=== PATIENT | female | born 1960 | race Caucasian/White ===

== ENCOUNTER 2019-07-28 13:48 | Emergency (ER) | payer MEDICARE, OTHER, SELFPAY ==
--- NOTE | 2019-07-28 13:56 | ED.GENADULT ---
HPI - General Adult General Chief complaint: Ear Stated complaint: Sore Throat/Dizziness/R ear pain Time Seen by Provider: 07/28/19 14:04 Source: patient Mode of arrival: ambulatory Limitations: no limitations History of Present Illness HPI narrative: 59-year-old female patient [facility] with complaints of right ear pain, dizziness, nasal congestion, runny nose symptoms for the past month. Patient states that her ear pain has been coming and going for the past month but is gotten increasingly worse today. Patient states she is also had dizziness for the last couple of days as well. Patient states she has tried taking Sudafed for her symptoms. Patient is not diabetic. Denies getting a flu shot this year. Patient denies any fevers, nausea, vomiting or diarrhea. Denies any chest pain or shortness of breath. Related Data Home Medications Medication Instructions Recorded Confirmed aspirin 81 mg tablet,delayed 81 mg PO DAILY 05/04/19 07/28/19 release cholecalciferol (vitamin D3) 25 1,000 unit PO DAILY 05/04/19 07/28/19 mcg (1,000 unit) capsule meloxicam 15 mg tablet 15 mg PO DAILY 05/04/19 07/28/19 multivitamin 1 tablet PO DAILY 05/04/19 07/28/19 venlafaxine 225 mg tablet,extended 225 mg PO DAILY 05/04/19 07/28/19 release 24 hr ascorbic acid (vitamin C) 1,000 mg 1 gm PO DAILY 06/12/19 07/28/19 tablet gabapentin 800 mg tablet 800 mg PO QID PRN tablet 06/12/19 07/28/19 Allergies Allergy/AdvReac Type Severity Reaction Status Date / Time shellfish derived Allergy Unknown Unknown Verified 07/28/19 14:04 Review of Systems Review of Systems: Narrative: CONSTITUTIONAL: Denies fever, chills, or sweats. EYES: Denies visual changes, redness, or discharge. ENT: Positive rhinorrhea, congestion, sore throat, and right otalgia. CARDIOVASCULAR: Denies chest pain, palpitations, or edema. RESPIRATORY: Denies cough or dyspnea. GASTROINTESTINAL: Denies abdominal pain, nausea, vomiting, or diarrhea. GENITOURINARY: Denies dysuria or hematuria. SKIN: Denies rash or itching. MUSCULOSKELETAL: Denies back pain, joint pain, or myalgia. NEUROLOGIC: Positive headache, dizziness, denies numbness, or weakness. PSYCHIATRIC: Denies anxiety or depression. [facility] Past Medical History Medical History Chronic pain of left knee Colitis Constipation Depression DM w/o complication type II, uncontrolled Headache, migraine HLD (hyperlipidemia) Hypokalemia Opioid abuse Recurrent UTI Spinal cord stimulator status Thyroid disease Urinary incontinence Surgical History Surgical History H/O left knee surgery x2 H/O neck surgery H/O right knee surgery H/O: hysterectomy History of back surgery x9 Family History Family History Mother Diabetes mellitus Hypertension Family history of elevated blood lipids Father Diabetes mellitus Hypertension Family history of congenital heart disease Family history of kidney disease Other Asthma Depression Family history of arthritis Family history of chronic obstructive pulmonary disease Family history of hearing loss Family history of liver disease Family history of malignant neoplasm of breast in first degree relative Family history of mental disorder Family history of obesity Social History Social History Smoking status: Never smoker Second hand tobacco smoke exposure: No Alcohol intake: current Comments At the time of my signature I agree with nursing past medical history, surgical, social, and family history. There is no relevant family history pertinent to the presenting complaint. Exam Narrative: Exam Narrative: GENERAL: Well-appearing, well-nourished, and in no acute distress. HEAD: Normocephalic, atraumatic. Tenderness noted t
[2019-07-28 13:59] VITALS: BP 150/72; PULSE 78; RESP 16; TEMP 36.6; O2SAT 98
== END 2019-07-28 14:15 | disposition home or self-care (01) ==
PROVIDERS: Emergency Provider Nurse Practitioner Family; PCP Internal Medicine
DX: J01.00 Acute maxillary sinusitis, unspecified (principal); H93.8X3 Other specified disorders of ear, bilateral; F32.9 Major depressive disorder, single episode, unspecified; E11.9 Type 2 diabetes mellitus without complications; E78.5 Hyperlipidemia, unspecified
CPT/HCPCS: 99213; G0463

== ENCOUNTER 2019-10-25 12:54 | Outpatient (CLI) | payer MEDICARE, OTHER, SELFPAY ==
--- NOTE | ~2019-10-25 | CT_ITS ---
EXAMINATION: CT abdomen pelvis w con DATE: 10/25/2019 13:28 INDICATION: Unspecified abdominal pain. TECHNIQUE: Computed tomography (CT) of the abdomen and pelvis was performed with 100 mL Omnipaque 350 intravenous contrast. Automated exposure control and iterative reconstruction technique were employe d. The dose-length product was 744.35 mGy-cm. COMPARISON: CT abdomen and pelvis 08/21/2018 FINDINGS: The visualized portions of the lung bases demonstrate mild atelectasis. No pleural effusion . The heart size is normal. No pericardial effusion. The liver, gallbladder, spleen, pancreas, adrena l glands, and left kidney are normal. There is a 5 mm cyst in right kidney. There are no dilated loop s of bowel. The appendix is normal. There are no pathologically enlarged lymph nodes. There is no alexander e intraperitoneal fluid. There are epidural electrodes in thoracic spine. There are changes of girls swimming coach ior fusion procedure from L4 to S1. There is moderate lumbar spondylosis. IMPRESSION: 1. No etiology for the patient's symptoms. Reviewed, dictated and finalized at location A.
[2019-10-25 13:25] LABS: Estimated Glomerular Filt Rate > 60
== END 2019-10-25 12:55 | disposition home or self-care (01) ==
LOC: ANHIMG 12:58
PROVIDERS: PCP Internal Medicine; Visit Provider Nurse Practitioner
DX: R10.9 Unspecified abdominal pain (principal)
CPT/HCPCS: 36415; 74177; Q9967

== ENCOUNTER 2020-03-22 16:15 | Emergency (ER) | payer MEDICARE, OTHER, SELFPAY ==
[2020-03-22 16:32] VITALS: BP 143/82; PULSE 76; RESP 16; TEMP 36.2; O2SAT 99
--- NOTE | 2020-03-22 16:46 | ED.URI ---
HPI - URI/Sore Throat General Chief Complaint: Ear Stated Complaint: ear/nose/throat Time Seen by Provider: 03/22/20 16:46 Source: patient Mode of arrival: ambulatory Limitations: no limitations History of Present Illness HPI Narrative: Danay Fulton is a59 yo female with a PMH oh HTN, high cholesterol, DM, hypothyroid, depression, diabetic neuropathy, who comes to express care with c/o pain in R ear and not feeling well. She is due to see an ENT on Tuesday because she has chronic issues with her right ear and sinuses that she has been treated for multiple times in the last couple months and it gets better than comes right back IBS runs in her family but her last A1c was 4.3; she takes medication for the rest of her conditions as prescribed Related Data Home Medications Medication Instructions Recorded Confirmed aspirin 81 mg tablet,delayed 81 mg PO DAILY 05/04/19 03/22/20 release meloxicam 15 mg tablet 15 mg PO DAILY 05/04/19 03/22/20 multivitamin 1 tablet PO DAILY 05/04/19 03/22/20 ascorbic acid (vitamin C) 1,000 mg 1 gm PO DAILY 06/12/19 03/22/20 tablet gabapentin 800 mg tablet 800 mg PO QID PRN tablet 06/12/19 03/22/20 apple cider vinegar 500 mg tablet 500 mg PO DAILY tablet 03/06/20 03/22/20 black cohosh 540 mg capsule 540 mg PO DAILY cap 03/06/20 03/22/20 cholecalciferol (vitamin D3) 50 50 mcg PO DAILY 03/06/20 03/22/20 mcg (2,000 unit) capsule cinnamon bark 500 mg capsule 1,000 mg PO DAILY cap 03/06/20 03/22/20 trazodone 50 mg tablet 50 mg PO DAILY tablet 03/06/20 03/22/20 Allergies Allergy/AdvReac Type Severity Reaction Status Date / Time shellfish derived Allergy Unknown Unknown Verified 07/28/19 14:04 Review of Systems Review of Systems: Narrative: CONSTITUTIONAL: Denies fever, chills, sweats. EYES: Denies visual changes, redness, discharge. ENT: Has rhinorrhea, has congestion, has sore throat, right otalgia. CARDIOVASCULAR: Denies chest pain, palpitations, edema. RESPIRATORY: Denies dyspnea, wheezing, cough GASTROINTESTINAL: Denies abdominal pain, nausea, vomiting, diarrhea. GENITOURINARY: Denies dysuria, hematuria, abnormal discharge SKIN: Denies rash or itching. NEUROLOGIC: Denies numbness, or focal weakness. PSYCHIATRIC: Denies anxiety or depression. [facility] Past Medical History Medical History (Updated 03/22/20 @ 17:02 by Vonnie Burden CNP) Chronic pain of left knee Colitis Constipation Depression DM w/o complication type II, uncontrolled Headache, migraine HLD (hyperlipidemia) Hypokalemia Opioid abuse Recurrent UTI Spinal cord stimulator status Thyroid disease Urinary incontinence Surgical History Surgical History H/O left knee surgery x2 H/O neck surgery H/O right knee surgery H/O: hysterectomy History of back surgery x9 Family History Family History Mother Diabetes mellitus Hypertension Family history of elevated blood lipids Father Diabetes mellitus Hypertension Family history of congenital heart disease Family history of kidney disease Other Asthma Depression Family history of arthritis Family history of chronic obstructive pulmonary disease Family history of hearing loss Family history of liver disease Family history of malignant neoplasm of breast in first degree relative Family history of mental disorder Family history of obesity Social History Social History Smoking status: Never smoker Second hand tobacco smoke exposure: No Alcohol intake: current Comments At time of signature, I agree with nursing past medical, surgical, social and family history. There is no relevant family history pertinent to the presenting complaint. Exam Narrative: Exam Narrative: GENERAL: This is a well-nourished, well-developed patient, in moderate distress. HEAD: normo
== END 2020-03-22 17:10 | disposition home or self-care (01) ==
PROVIDERS: Emergency Provider Nurse Practitioner; PCP Internal Medicine
DX: H66.004 Acute suppurative otitis media without spontaneous rupture of ear drum, recurrent, right ear (principal); J06.9 Acute upper respiratory infection, unspecified; F32.9 Major depressive disorder, single episode, unspecified; E11.9 Type 2 diabetes mellitus without complications; E78.5 Hyperlipidemia, unspecified; Z96.82 Presence of neurostimulator; Z79.82 Long term (current) use of aspirin
CPT/HCPCS: 87081; 87880; 99213; G0463

== ENCOUNTER 2020-04-04 15:08 | Outpatient (CLI) | payer MEDICARE, OTHER, SELFPAY ==
--- NOTE | ~2020-04-04 | CT_ITS ---
EXAMINATION: CT sinus wo con DATE: 04/04/2020 15:32 INDICATION: Chronic sinusitis TECHNIQUE: Computed tomography (CT) of the paranasal sinuses was performed without intravenous contra st. The dose-length product was 297.72 mGy-cm. Automated exposure control and iterative reconstructio n technique were employed. COMPARISON: CT dated 01/11/2013 FINDINGS: Air-fluid level in the left maxillary sinus. Mild mucosal thickening left maxillary sinus. Ostiomeatal units are patent. Right mary bullosa. Leftward nasal septal deviation. Mastoids are pne umatized. IMPRESSION: 1. Mild left maxillary sinusitis. Reviewed, dictated and finalized at location B.
== END 2020-04-04 15:09 | disposition home or self-care (01) ==
PROVIDERS: PCP Internal Medicine; Visit Provider Otolaryngology
DX: J32.0 Chronic maxillary sinusitis (principal)
CPT/HCPCS: 70486

== ENCOUNTER 2020-07-03 13:37 | Outpatient (CLI) | payer MEDICARE, OTHER, SELFPAY ==
--- NOTE | 2020-07-03 13:41 | ECG_ITS ---
Measurements Intervals [place] Rate: 73 P: 19 SC: 172 QRS: 59 QRSD: 105 T: 67 QT: 399 QTc: 440 Interpretive Statements SINUS RHYTHM BORDERLINE T WAVE ABNORMALITY- ANTERIOR LEADS BORDERLINE ECG Electronically Signed On 07-03-2020 14:08:46 BATCH TANK CONTROLLER by Aubrey Magana D.O.
[2020-07-03 14:21] LABS: Anion Gap 9 mmol/L (8-16); Blood Urea Nitrogen 17 mg/dL (7-17); Calcium 9.5 mg/dL (8.4-10.2); Carbon Dioxide 28 mmol/L (22-30); Chloride 97 mmol/L (98-107); Estimated Glomerular Filt Rate > 60; Glucose 225 mg/dL (65-105); Potassium 4.5 mmol/L (3.4-5.0); Sodium 134 mmol/L (137-145)
== END 2020-07-03 13:38 | disposition home or self-care (01) ==
LOC: ANHSURGERY 13:41
PROVIDERS: Anesthesiology; PCP Internal Medicine; Visit Provider Orthopaedic Surgery
DX: E11.9 Type 2 diabetes mellitus without complications (principal); Z01.818 Encounter for other preprocedural examination; R94.31 Abnormal electrocardiogram [ECG] [EKG]
CPT/HCPCS: 36415; 80048; 93005

== ENCOUNTER 2020-07-05 00:11 | Outpatient (CLI) | payer MEDICARE, OTHER, SELFPAY ==
[2020-07-06 00:20] LABS: SARS-CoV-2 RNA PCR Negative
== END 2020-07-05 00:12 | disposition home or self-care (01) ==
LOC: ANHCOVIDDT 00:12
PROVIDERS: PCP Internal Medicine; Visit Provider Orthopaedic Surgery
DX: Z01.812 Encounter for preprocedural laboratory examination (principal); Z20.822 Contact with and (suspected) exposure to COVID-19
CPT/HCPCS: C9803; U0003; U0005

== ENCOUNTER 2020-07-08 00:59 | Day surgery (SDC) | payer MEDICARE, OTHER, SELFPAY ==
[2020-07-02 13:28] VITALS: BMI 29.6
--- NOTE | 2020-07-07 09:13 | WPDANESEPPF ---
Anes - Initial Pre Proc Eval Procedure: Operation Date: 07/08/20 10:30 Proposed Procedures p Right Shoulder Arthroscopic Subacromial Decompression, Proceed As Indicated - Mayank Paige MD Date/Time: 07/07/20 09:13 Surgeon: Mayank Paige MD Pre Op Diagnosis: impingement syndrome right shoulder Patient Data Age: 60 Gender: F Height: 1.7 m Weight: 85.9 kg Allergies Allergy/AdvReac Type Severity Reaction Status Date / Time shellfish derived Allergy Unknown Anaphylaxis Verified 07/08/20 08:56 Home Medications Medication Instructions Recorded Confirmed Type aspirin 81 mg tablet,delayed 81 mg PO DAILY 05/04/19 07/08/20 History release meloxicam 15 mg tablet 15 mg PO DAILY 05/04/19 07/08/20 History multivitamin 1 tablet PO DAILY 05/04/19 07/08/20 History ascorbic acid (vitamin C) 1,000 mg 500 mg PO DAILY 06/12/19 07/08/20 History tablet gabapentin 800 mg tablet 800 mg PO QID PRN tablet 06/12/19 07/08/20 History black cohosh 540 mg capsule 540 mg PO DAILY cap 03/06/20 07/08/20 History cholecalciferol (vitamin D3) 50 50 mcg PO DAILY 03/06/20 07/08/20 History mcg (2,000 unit) capsule cinnamon bark 500 mg capsule 1,000 mg PO DAILY cap 03/06/20 07/08/20 History trazodone 50 mg tablet 50 mg PO HS tablet 03/06/20 07/08/20 History metformin 500 mg tablet 500 mg PO DAILY #270 tablet 03/13/20 07/08/20 Rx levothyroxine 112 mcg tablet 112 mcg PO DAILY #90 tablet 04/01/20 07/08/20 Rx fluticasone propionate 50 2 spray INTRANASAL DAILY #15.8 ml 05/20/20 07/08/20 Rx mcg/actuation nasal spray,suspension venlafaxine 150 mg 150 mg PO DAILY #90 cap 06/03/20 07/08/20 Rx capsule,extended release 24 hr venlafaxine 75 mg capsule,extended 75 mg PO DAILY #90 cap 06/03/20 07/08/20 Rx release 24 hr apple cider vinegar 1,500 mg PO QAM 07/02/20 07/08/20 History atorvastatin 20 mg PO HS 07/02/20 07/08/20 History Patient hx anesthesia problems: none Family hx anesthesia problems: none [facility] Past Medical History Medical History (Updated 07/07/20 @ 09:13 by Rudy Bruno DO) Chronic pain of left knee Colitis Constipation Depression DM w/o complication type II, uncontrolled GERD (gastroesophageal reflux disease) Headache, migraine HLD (hyperlipidemia) Hypokalemia Opioid abuse Recurrent UTI Spinal cord stimulator status Thyroid disease Urinary incontinence Surgical History Surgical History H/O left knee surgery x2 H/O neck surgery H/O right knee surgery H/O: hysterectomy History of back surgery x9 Family History Family History Mother Diabetes mellitus Hypertension Family history of elevated blood lipids Father Diabetes mellitus Hypertension Family history of congenital heart disease Family history of kidney disease Other Asthma Depression Family history of arthritis Family history of chronic obstructive pulmonary disease Family history of hearing loss Family history of liver disease Family history of malignant neoplasm of breast in first degree relative Family history of mental disorder Family history of obesity Social History Social History Smoking status: Never smoker Second hand tobacco smoke exposure: No Alcohol intake: current Alcohol use details: VERY RARELY 1-2 DRINKS/6 MONTHS Substance use: never Substance use type: does not use Living arrangements: with family Spiritual care concerns: No Anes - Eval Final PreProcedure Day of Procedure 07/07/20 09:13 Patient weight: obese Heart: regular rate and rhythm Lungs: clear to auscultation and normal air movement Airway: Mallampati scale class II Neurological: alert and oriented Last oral intake: >/= 8 hours ASA classification: III Emergent: no Anesthetic plan: proceed Anesthesia type and monitoring: general E
--- NOTE | 2020-07-07 09:14 | WPDANESPNB ---
Anes - Peripheral Nerve Block Date/Time: 07/07/20 09:14 I have discussed with the patient/family/POA the placement of a peripheral nerve block for post-operative pain management, including associated risks, benefits, complications, and side effects. Alternative methods of post-operative analgesia were detailed. Questions were solicited and answers provided to the satisfaction of the patient/family/POA. Time-Out: A pre-procedural Time-Out was completed immediately before starting the procedure and confirmed: Patient Identification, Site, Procedure, Patient Position and the Availability of Requisite Equipment. Clinical Indications: Acute post-operative pain management requested by the operative surgeon. Nerve Block Insertion Note Anes-nerve block: interscalene right Patient position: supine Skin prep: chlorhexidine Needle: 22 gauge, stimulating, insulated echogenic needle. Needle length: 50 mm Technique: ultrasound Injectate: bupivacaine 0.5% with epi 5 mcg/ml (30cc) Observations: tolerated well Complications: none Procedure start time:: 1026 Procedure end time:: 102
[2020-07-08] VITALS (10 sets, daily range): BP systolic 95–116; BP diastolic 31–90; PULSE 72–120; RESP 11–20; TEMP 36–37.1; O2SAT 93–100; BMI 30.7
--- NOTE | 2020-07-08 07:18 | WPDHPUPDATE1 ---
History and Physical Update Update Date/Time: 07/08/20 07:18 History and Physical has been reviewed, including an updated exam of the patient. There are NO changes in the patient's condition. Risks, benefits, and alternatives have been discussed and questions answered. Patient agrees to proceed with procedure.
[2020-07-08] MEDS: ACETAMINOPHEN 500 MG TABLET 1000 MG PO (09:26)
[2020-07-08] MEDS: LACTATED RINGERS 1,000 ML 30 ML IV CONT ×2 (09:26→12:51)
[2020-07-08] MEDS: KETOROLAC 15 MG/ML VIAL (*BKC) IV PUSH (09:27)
[2020-07-08 09:40] LABS: Glucose Point of Care 205 (65-105)
--- NOTE | 2020-07-08 09:43 | SUR.PREOP ---
NOTIFIED DR DAVIES OF [facility] 205. WILL RECHECK IN PACU
[2020-07-08] MEDS: ceFAZolin 2 GM/D5W 50 ML 2 GM/50 ML BAG IVPB (10:36)
[2020-07-08 13:27] LABS: Glucose Point of Care 237 (65-105)
[2020-07-08] MEDS: fentaNYL CITRATE INJ (*CRX) 100 MCG/2 ML VIAL 25 MCG IV PUSH ×2 (13:29→13:57)
[2020-07-08] MEDS: INSULIN HUMAN REGULAR (*BKC) 100 UNITS/ML IV PUSH (13:37)
--- NOTE | 2020-07-08 14:02 | PM.PROC ---
Procedure Note - Detailed Date of procedure: 07/14/20 Pre-op diagnosis: impingement syndrome right shoulder Post-op diagnosis: other (1. Partial thickness rotator cuff tear 2. Impingment syndrome) Procedure performed: 1. Arthroscopic rotator cuff repair (upper subscapularis) 2. Arthroscopic subacromial decompression. Description of procedure: The upper subscapularis showed moderate-grade split tearing on the articular side. Although many of the anterior and superior fibers were intact, it was felt that repair was indicated. Metallic suture anchor was placed at the upper lesser tuberosity footprint and 2 simple sutures reduced the subscapularis very nicely. Biceps was in within normal limits. There was no subluxation or inflammation. The articular side of the rotator cuff had an intact rotator cuff cable. There was approximately 15-20% articular sided low-grade tearing. Bursal rotator cuff showed only very minimal fraying. Impingement was treated with acromioplasty and bursectomy and coracoacromial ligament release. Anesthesia: GETA and regional Surgeon: Mayank Paige MD Estimated blood loss (mL): 10 Complications: None Condition: stable Disposition: PACU Findings: Physician medical assistant instructor, Yen Tran PA-C, required for surgery; including patient positioning, draping, arthroscopic camera operation, maintaining instrument position, suture retrieval, wound closure, and dressing and sling placement. Brief history: The patient complained of persistent pain with overhead and reaching activities. Pain persisted despite physical therapy and cortisone injections. Operative details: Patient was given an interscalene block in the holding area. Preoperative antibiotics were given. The patient was brought to the operating room. Careful positioning in the lateral decubitus position was accomplished. The head neck were carefully positioned. An axillary roll was placed. The shoulder was examined. The shoulder was prepped and draped in the usual sterile fashion. Standard posterior and anterior arthroscopic portals were established. The shoulder was inspected. The glenohumeral cartilage was very healthy. Fraying of the articular supraspinatus was confirmed. Gentle debridement revealed only a 15-20% low-grade tearing. Small amount of yellowish degenerative tissue was noted at the posterior aspect, but otherwise the tendon appeared quite good. The upper subscapularis had mid grade articular side tearing with mild splitting of the fibers. It was confirmed that reduction could be accomplished thus improving the appearance of the subscapularis significantly. It was elected to repair with a metallic suture anchor and 2 simple sutures at the upper border. The final repair appeared very anatomic. Attention was turned to the subacromial space. A complete bursectomy was performed. An accessory lateral portal was created. The acromion was clearly visualized. The coracoacromial ligament was released. Careful acromioplasty was performed utilizing views from both lateral and posterior. Loose bone fragments were carefully irrigated from the joint. The arthroscopic instruments were removed. The wounds were closed with interrupted 3-0 Monocryl suture followed by Steri-Strips. A sterile dressing was applied with a sling. The patient was extubated and brought to the recovery room in stable condition. There were no complications.
== END 2020-07-08 15:35 | disposition home or self-care (01) ==
PROVIDERS: PCP Internal Medicine; Visit Provider Orthopaedic Surgery
PROC: (CPT 29805; principal; 2020-07-08 10:30)
DX: M75.41 Impingement syndrome of right shoulder (principal); M75.101 Unspecified rotator cuff tear or rupture of right shoulder, not specified as traumatic; G89.18 Other acute postprocedural pain; E11.9 Type 2 diabetes mellitus without complications; E78.5 Hyperlipidemia, unspecified; F32.9 Major depressive disorder, single episode, unspecified; K21.9 Gastro-esophageal reflux disease without esophagitis; E07.9 Disorder of thyroid, unspecified; K59.00 Constipation, unspecified; Z79.84 Long term (current) use of oral hypoglycemic drugs; E66.9 Obesity, unspecified; Z68.30 Body mass index [BMI] 30.0-30.9, adult
CPT/HCPCS: 29827; 29826; 64415; A4565; A9270; C1713; J0690; J1100; J1815; J1885; J2250; J2405; J2704; J2710; J3010; J7120

== ENCOUNTER → 2020-11-29 00:32 | Outpatient (CLI) | payer MEDICARE, OTHER, SELFPAY ==
[2020-11-29 19:26] LABS: SARS-CoV-2 RNA PCR Negative
== END ==
PROVIDERS: PCP Internal Medicine; Visit Provider Orthopaedic Surgery
DX: Z01.812 Encounter for preprocedural laboratory examination (principal); Z20.822 Contact with and (suspected) exposure to COVID-19
CPT/HCPCS: C9803; U0003; U0005

== ENCOUNTER 2020-12-02 00:31 | Day surgery (SDC) | payer MEDICARE, OTHER, SELFPAY ==
[2020-11-28 14:30] VITALS: BMI 29.3
[2020-12-02] VITALS (10 sets, daily range): BP systolic 100–127; BP diastolic 39–69; PULSE 73–88; RESP 10–16; TEMP 35.3–36.2; O2SAT 93–99
--- NOTE | 2020-12-02 08:26 | WPDANESEPPF ---
Anes - Initial Pre Proc Eval Procedure: Operation Date: 12/02/20 11:00 Proposed Procedures p Right Shoulder Arthroscopic Rotator Cuff Repair, Biceps Tenodesis - Mayank Paige MD Date/Time: 12/02/20 08:26 Surgeon: Mayank Paige MD Pre Op Diagnosis: right rotator cuff tear Patient Data Age: 60 Gender: F Height: 1.71 m Weight: 86.2 kg Allergies Allergy/AdvReac Type Severity Reaction Status Date / Time shellfish derived Allergy Unknown Anaphylaxis Verified 11/28/20 13:47 Home Medications Medication Instructions Recorded Confirmed Type aspirin 81 mg tablet,delayed 81 mg PO DAILY 05/04/19 11/28/20 History release meloxicam 15 mg tablet 15 mg PO DAILY 05/04/19 11/28/20 History multivitamin 1 tablet PO DAILY 05/04/19 11/28/20 History ascorbic acid (vitamin C) 1,000 mg 500 mg PO DAILY 06/12/19 11/28/20 History tablet gabapentin 800 mg tablet 800 mg PO QID tablet 06/12/19 11/28/20 History black cohosh 540 mg capsule 540 mg PO DAILY cap 03/06/20 11/28/20 History cholecalciferol (vitamin D3) 50 50 mcg PO DAILY 03/06/20 11/28/20 History mcg (2,000 unit) capsule cinnamon bark 500 mg capsule 1,000 mg PO DAILY cap 03/06/20 11/28/20 History fluticasone propionate 50 2 spray INTRANASAL DAILY #15.8 ml 05/20/20 11/28/20 Rx mcg/actuation nasal spray,suspension metformin 500 mg tablet 1,000 mg PO BID 90 Days #360 tablet 08/13/20 11/28/20 Rx apple cider vinegar 500 mg tablet 1,500 mg PO QAM 08/20/20 11/28/20 History venlafaxine 75 mg capsule,extended 75 mg PO DAILY #90 cap 08/26/20 11/28/20 Rx release 24 hr venlafaxine 150 mg 150 mg PO DAILY #90 cap 08/27/20 11/28/20 Rx capsule,extended release 24 hr cetirizine 10 mg tablet 10 mg PO DAILY PRN #30 tablet 10/21/20 11/28/20 Rx levothyroxine 112 mcg tablet See Rx Instructions .ROUTE 11/03/20 11/28/20 Rx .COMPLEX #30 tablet atorvastatin 20 mg tablet 20 mg PO HS #90 tablet 11/05/20 11/28/20 Rx hydrocodone 5 mg-acetaminophen 325 1 - 2 tablet PO Q4-6H PRN #30 11/20/20 11/28/20 Rx mg tablet tablet MDD 6 Patient hx anesthesia problems: none Family hx anesthesia problems: none PMFSH Past Medical History Medical History (Updated 12/02/20 @ 08:27 by Glenroy Godoy MD) Anxiety Chronic pain of left knee Colitis Constipation Depression DM w/o complication type II, uncontrolled GERD (gastroesophageal reflux disease) Headache, migraine HLD (hyperlipidemia) Hypokalemia Opioid abuse Recurrent UTI Spinal cord stimulator status Thyroid disease Urinary incontinence Surgical History Surgical History H/O left knee surgery x2 H/O neck surgery H/O right knee surgery H/O: hysterectomy History of back surgery x9 S/P right rotator cuff repair Family History Family History Mother Diabetes mellitus Hypertension Family history of elevated blood lipids Father Diabetes mellitus Hypertension Family history of congenital heart disease Family history of kidney disease Other Asthma Depression Family history of arthritis Family history of chronic obstructive pulmonary disease Family history of hearing loss Family history of liver disease Family history of malignant neoplasm of breast in first degree relative Family history of mental disorder Family history of obesity Social History Social History Smoking status: Never smoker Second hand tobacco smoke exposure: No Alcohol intake: current Alcohol use details: TWO DRINKS PER MONTH Substance use: never Substance use type: does not use Living arrangements: with friend(s) Spiritual care concerns: No Anes - Eval Final PreProcedure Day of Procedure 12/02/20 08:26 Patient weight: obese Heart: regular rate and rhythm Lungs: clear to auscultation and normal air movement Airway: Mallampati
[2020-12-02] MEDS: ACETAMINOPHEN 500 MG TABLET 1000 MG PO (09:59)
[2020-12-02] MEDS: LACTATED RINGERS 1,000 ML 30 ML IV CONT ×2 (10:00→15:01)
[2020-12-02] MEDS: KETOROLAC 15 MG/ML VIAL (*BKC) IV PUSH (10:00)
[2020-12-02 10:06] LABS: Glucose Point of Care 197 mg/dl (65-105)
--- NOTE | 2020-12-02 10:31 | WPDHPUPDATE1 ---
History and Physical Update Update Date/Time: 12/02/20 10:31 History and Physical has been reviewed, including an updated exam of the patient. There are NO changes in the patient's condition. Risks, benefits, and alternatives have been discussed and questions answered. Patient agrees to proceed with procedure.
--- NOTE | 2020-12-02 10:44 | WPDANESPNB ---
Anes - Peripheral Nerve Block Date/Time: 12/02/20 10:44 I have discussed with the patient/family/POA the placement of a peripheral nerve block for post-operative pain management, including associated risks, benefits, complications, and side effects. Alternative methods of post-operative analgesia were detailed. Questions were solicited and answers provided to the satisfaction of the patient/family/POA. Time-Out: A pre-procedural Time-Out was completed immediately before starting the procedure and confirmed: Patient Identification, Site, Procedure, Patient Position and the Availability of Requisite Equipment. Clinical Indications: Acute post-operative pain management requested by the operative surgeon. Nerve Block Insertion Note Anes-nerve block: supraclavicular right Patient position: supine Skin prep: chlorhexidine Needle: 22 gauge, stimulating, insulated echogenic needle. Needle length: 80 mm Technique: ultrasound (in plane) Injectate: bupivacaine 0.5% with epi 5 mcg/ml (20cc) Observations: tolerated well Complications: none Procedure start time:: 1035 Procedure end time:: 1040
[2020-12-02] MEDS: ceFAZolin 2 GM/D5W 50 ML 2 GM/50 ML BAG IVPB (11:03)
[2020-12-02 14:34] LABS: Glucose Point of Care 189 mg/dl (65-105)
--- NOTE | 2020-12-02 14:42 | W.PM.PROC2 ---
Procedure Note - Detailed Date of Procedure 12/02/20 Pre-op Diagnosis 1. Right shoulder partial-thickness supraspinatus rotator cuff tear 2. Possible failed subscapularis tendon repair 3. Biceps tendinosis Post-op Diagnosis other ( 1. Right shoulder partial-thickness articular side supraspinatus rotator cuff tear 2. Failed upper subscapularis rotator cuff repair 3. Biceps tendinosis) Procedure Performed 1. Arthroscopic rotator cuff repair including the upper subscapularis, and partial articular side supraspinatus tear 2. Biceps tenodesis 3. Subacromial decompression Surgeon Mayank Paige MD Active Directory Specialist Yen Tran PA-C Anesthesia general and regional Indications She complained of significant persistent pain despite suture anchor repair of the upper subscapularis and subacromial decompression. The early postoperative course was marked by her pushing a door open, and feeling a tearing sensation in the front of the shoulder. Findings The upper subscapularis was indeed torn. The sutures appeared to have pulled through. After a horizontal mattress suture was placed in healthy tendon medially, there was poor contact of the lateral and more distal margin of the tendon. A 2nd all suture anchor was placed with a modified Leonel-Enrique. The repair was quite siegel. The articular side supraspinatus was torn approximately 20%, and somewhat degenerative. There was mild fraying on the bursal side. The lateral margin of the acromion was slightly downsloping and additional acromioplasty was taken. The Regeneten collagen implant was placed over the supraspinatus tendon and secured with multiple ED suture anchors in the tendon, and 3 peek bone anchors laterally. The long head of the biceps tendon showed fraying along the margin adjacent to the subscapularis. Tenodesis was performed at the intertubercular groove. A single metallic anchor was placed. A double locking loop suture was placed through the tendon securing it very nicely. Description of Procedure Physician medical staff assistant, Yen Tran PA-C, required for surgery; including patient positioning, draping, arthroscopic camera operation, maintaining instrument position,[ suture retrieval,] wound closure, and dressing and sling placement. Preoperative antibiotics were given. A general anesthetic was administered. The patient was carefully positioned in the beach chair position. Shoulder was examined without significant abnormal findings. The shoulder was prepped and draped in the usual sterile fashion. Standard posterior and anterior arthroscopic portals were established. Inflow was obtained with the saline pump. Inspection revealed tearing of the upper subscapularis. The knots were intact but the tissue appeared to have pulled through. The biceps showed fraying on the margin of the biceps nearest the subscapularis. He was tagged for later tenodesis and released from the superior labrum. A horizontal mattress suture was passed through the subscapularis in medial the good tissue a knotless anchor was used through the previous anchor hole. The lateral most margin of the tendon was subsequently repaired with a 2nd all suture anchor placed more lateral and distal. A modified Leonel-Enrique suture was placed utilizing both the antegrade Passer and a retrograde suture Passer. The sutures were tied and the repair appeared quite anatomic. Good episcopalian of the footprint was confirmed. The articular supraspinatus showed about 20% tearing. Subtle degeneration noted. The articular cartilage showed grade 1 chondromalacia on the humerus. No other abnormal findings in the joint. Attention was turned to the subacromial space. Accessory lateral portals were created. There was mild fraying of the bursal rotator cuff at the supraspinatus. There was some downsloping of the lateral most edge of the acromion; perhaps contributing to impingement on the supraspinatus. This was treated with additional acromiopla
[2020-12-02] MEDS: fentaNYL CITRATE INJ (*CRX) 100 MCG/2 ML VIAL 25 MCG IV PUSH ×3 (14:45→15:08)
[2020-12-02] MEDS: ONDANSETRON INJ 4 MG/2 ML VIAL IV PUSH (15:14)
[2020-12-02] MEDS: HYDROmorphone HCL INJ (*CRX) 1 MG/ML SYR 0.25 MG IV PUSH ×2 (15:17→15:25)
--- NOTE | 2020-12-02 15:46 | SUR.PHASEII ---
1546- Patient complaining of waves of nausea at times with movement. Call to Dr. Godoy to obtain orders for anti nausea medication. Per Dr. Godoy place orders for a scopolamine patch and 25MG benadryl IVP once.
[2020-12-02] MEDS: SCOPOLAMINE 1.5 MG PATCH TRANSDERM (15:53)
[2020-12-02] MEDS: diphenhydrAMINE HCl INJ 50 MG/ML VIAL 25 MG IV PUSH (15:56)
[2020-12-02] MEDS: oxyCODONE HCL (*CRX) 5 MG TAB IR PO (16:06)
== END 2020-12-02 16:38 | disposition home or self-care (01) ==
PROVIDERS: PCP Internal Medicine; Visit Provider Orthopaedic Surgery
PROC: (CPT 29805; principal; 2020-12-02 11:00)
DX: M75.111 Incomplete rotator cuff tear or rupture of right shoulder, not specified as traumatic (principal); M75.21 Bicipital tendinitis, right shoulder; G89.18 Other acute postprocedural pain; E11.9 Type 2 diabetes mellitus without complications; E78.5 Hyperlipidemia, unspecified; F41.8 Other specified anxiety disorders; E07.9 Disorder of thyroid, unspecified; E66.9 Obesity, unspecified; Z68.30 Body mass index [BMI] 30.0-30.9, adult; Z79.84 Long term (current) use of oral hypoglycemic drugs; Z79.82 Long term (current) use of aspirin; Z79.891 Long term (current) use of opiate analgesic
CPT/HCPCS: 29827; 29828; 29826; 64415; 82948; A4565; A9270; C1713; J0690; J1100; J1170; J1200; J1885; J2250; J2370; J2405; J2710; J3010; J7120

== ENCOUNTER 2021-01-22 08:05 | Outpatient (CLI) | payer MEDICARE, OTHER, SELFPAY ==
--- NOTE | ~2021-01-22 | US_ITS ---
EXAMINATION: US art doppler w press LE BI DATE: 01/22/2021 08:58 CDT INDICATION: Peripheral arterial disease. TECHNIQUE: Segmental pressures and plethysmographic and Doppler waveforms of the brachial and lower e xtremity arteries were obtained. COMPARISON: None. FINDINGS: Right and left brachial artery pressures of 1:15 mm Hg and 135 mm Hg, respectively, are concordant (n ormal difference <= 30 mmHg). The right high-thigh pressure index is 1.23 (normal > 1.2). The right ankle-brachial index (AIRAM) is 1 .13 (normal >= 0.9-1.0). The right great toe-brachial index (TBI) is 0.91 (normal >= 0.60). The right lower extremity segmental pressure gradients are normal (normal gradients <= 20-30 mmHg between ernestina cent levels on the same leg or the same levels on the two legs). Arterial Doppler waveforms are bipha sic. The left high-thigh pressure index is 1.22. The left AIARM is 1.05. The left TBI is 0.89. The left lowe r extremity segmental pressure gradients are normal. Arterial Doppler waveforms are biphasic. IMPRESSION: 1. Normal lower extremity arterial Doppler. Reviewed, dictated and finalized at location A.
== END 2021-01-22 08:06 | disposition home or self-care (01) ==
PROVIDERS: PCP Internal Medicine; Visit Provider Podiatrist Foot & Ankle Surgery
DX: I73.9 Peripheral vascular disease, unspecified (principal)
CPT/HCPCS: 93923

== ENCOUNTER 2021-04-21 11:14 | Outpatient (RCR) | payer MEDICARE, OTHER, SELFPAY ==
[2021-04-21] MEDS: ACETAMINOPHEN 325 MG TABLET 650 MG PO (12:21)
[2021-04-21] MEDS: FAMOTIDINE 20 MG TABLET PO (12:21)
[2021-04-21] MEDS: diphenhydrAMINE HCl CAP 25 MG CAPSULE PO (12:21)
[2021-04-21 12:27] VITALS: BP 127/72; PULSE 81; RESP 22; TEMP 35.8; O2SAT 100
[2021-04-21 13:23] VITALS: BP 107/71; PULSE 76; RESP 20; TEMP 35.7; O2SAT 100
--- NOTE | 2021-04-22 08:53 | PC.NURSE ---
Called to check in with patient, no answer, voicemail was left with call back number for any questions or concerns
--- NOTE | 2021-04-22 13:42 | PC.NURSE ---
Pt returned voicemail stated she is not feeling any better but that her symptoms remained unchanged
== END 2021-04-21 15:02 | disposition home or self-care (01) ==
LOC: AMCINF 11:14
PROVIDERS: PCP Internal Medicine; Referring Provider Internal Medicine; Visit Provider Internal Medicine Hematology & Oncology
DX: Z23 Encounter for immunization (principal); U07.1 COVID-19; E11.9 Type 2 diabetes mellitus without complications
CPT/HCPCS: A9270; M0243; Q0243

== ENCOUNTER 2021-11-03 12:14 | Outpatient (CLI) | payer MEDICARE, SELFPAY ==
--- NOTE | ~2021-11-03 | XR_ITS ---
EXAMINATION: 1. CT cervical spine w con 2. CT thoracic lumbar w con, 3. [id number] DATE: 11/03/2021 14:03 INDICATION: Myelopathy. TECHNIQUE: The procedure including the risks, benefits, and alternatives was discussed with the patie nt. Risks discussed included spinal headache, bleeding, and infection. The patient understood the ris ks and agreed to proceed. A timeout was performed to verify the patient's name, date of , and procedure to be performed. The skin overlying the L5 level was prepped and draped in usual sterile fashion. Subcutaneous 1% lidocaine was used for local anesthesia. A 20 gauge spinal needle was adva nced under fluoroscopic guidance. 10 mL Omnipaque 300 was injected. The needle was removed and the en try site was cleaned and dressed. There were no immediate complications. Fluoroscopy exposure time w as 0.8 minutes. The total number of fluoroscopy images was 4. Computed tomography (CT) of the cervica l, thoracic, and lumbar spine was performed without intravenous contrast after intrathecal injection of contrast. Automated exposure control and iterative reconstruction technique were employed. The dos e-length product was 2359 mGy-cm. FINDINGS: Cervical, thoracic, and lumbar myelograms: Real-time fluoroscopy demonstrates the needle at the L5 le roland. Contrast is only faintly visible by fluoroscopy after spreading contrast to all the target level s in the spine. COMPARISON: Cervical spine MRI 11/03/17, thoracic spine MRI 06/17/17 FINDINGS: CT CERVICAL SPINE: There is 3 degrees levocurvature of cervicothoracic spine. There is 2 mm anterolis thesis of C4 on C5. There are changes of anterior fusion procedure from C5 to C7 with healed interbod y bone graft and anterior plate and screws. Vertebral body heights are normal. There is mildly decrea sed disc height at C3-C4 and C4-C5. The following disc levels are specifically discussed: C2-C3: There is no uncovertebral joint osteoarthritis. There is severe right and mild left facet join t osteoarthritis. There is mild right neural foraminal stenosis. There is no central canal stenosis. C3-C4: The disc is bulging. There is mild bilateral uncovertebral joint osteoarthritis. There is julio re bilateral facet joint osteoarthritis. There is mild bilateral neural foraminal stenosis. There is mild central canal stenosis. C4-C5: There is moderate bilateral uncovertebral joint osteoarthritis. There is severe bilateral face t joint osteoarthritis. There is mild bilateral neural foraminal stenosis. There is mild central kathryn l stenosis. C5-C6: There is no uncovertebral joint hypertrophy. There is ankylosis of the facet joints with mild right hypertrophy. There is mild right neural foraminal stenosis. There is no central canal stenosis. C6-C7: There is no uncovertebral joint hypertrophy. There is moderate and severe left facet joint ost eoarthritis. There is no neural foraminal stenosis. There is no central canal stenosis. C7-T1: There is no uncovertebral joint osteoarthritis. There is severe right and mild left facet join t osteoarthritis. There is mild bilateral neural foraminal stenosis. There is no central canal stenos is. CT THORACIC SPINE: There is 3 degrees dextrocurvature of cervical spine. There is mild chronic anteri or wedging of T6 and T7 vertebral bodies. There is mildly decreased disc height at multiple levels. T here is moderately decreased disc height at T3-T4, severely decreased disc height at L4-L5, and moder ately decreased disc height from T5-T6 through T9-T10. There is multilevel mild facet joint osteoarth ritis. There is no neural foraminal stenosis in thoracic spine. The discs do not extend beyond the en dplate margins. No central canal stenosis. There are epidural electrodes with tips that T6-T7 and T8, respectively. CT LUMBAR SPINE: Bone alignment is normal. There are changes of posterior fusion pro
[2021-11-03 12:35] VITALS: BP 120/46; PULSE 71; RESP 16; TEMP 36.6; O2SAT 98
[2021-11-03 12:47] LABS: Mean Platelet Volume 9.4 fl (7.4-10.4); Platelet Count Result 352 k/mm3 (150-375)
[2021-11-03 12:50] LABS: Glucose Point of Care 116 mg/dl (65-105)
[2021-11-03 13:10] LABS: INR 0.9; Prothrombin Time 12.2 Seconds (11.1-14.7)
[2021-11-03 14:10] VITALS: BP 132/69; PULSE 70; RESP 16; O2SAT 98
[2021-11-03 14:13] LABS: Glucose Point of Care 87 mg/dl (65-105)
[2021-11-03] MEDS: ACETAMINOPHEN 500 MG TABLET 1000 MG PO (14:32)
[2021-11-03 14:40] VITALS: BP 121/61; PULSE 61; RESP 16; O2SAT 97
[2021-11-03 15:10] VITALS: BP 116/63; PULSE 61; RESP 16; O2SAT 97
[2021-11-03 15:40] VITALS: BP 123/61; PULSE 57; RESP 16; O2SAT 100
[2021-11-03 16:05] VITALS: BP 152/66; PULSE 67; RESP 14; O2SAT 100
== END 2021-11-03 16:12 | disposition home or self-care (01) ==
PROVIDERS: Radiology Diagnostic Radiology; PCP Internal Medicine; Visit Provider Anesthesiology
DX: G99.2 Myelopathy in diseases classified elsewhere (principal); M47.892 Other spondylosis, cervical region; M47.894 Other spondylosis, thoracic region; M47.896 Other spondylosis, lumbar region; Z98.1 Arthrodesis status
CPT/HCPCS: 36415; 62302; 62303; 62304; 62305; 72126; 72129; 72132; 82948; 85049; 85610; A9270

== ENCOUNTER 2021-11-05 14:24 | Outpatient (CLI) | payer MEDICARE, SELFPAY ==
--- NOTE | ~2021-11-05 | XR_ITS ---
EXAMINATION: XR hip BI wo pelvis DATE: 11/05/2021 15:14 INDICATION: Postlaminectomy low back pain TECHNIQUE: Anteroposterior view of the pelvis and anteroposterior and frog-leg lateral views of the l eft hip and anteroposterior and frog-leg lateral views of the right hip were obtained. COMPARISON: CT dated 10/25/2019 FINDINGS: L5 laminectomy and L4-S1 posterior spinal fusion with bilateral posterior plate and pedicle screw fix ation. Mild osteoarthritis at the bilateral sacroiliac joints. Mild bilateral hip osteoarthritis with relatively preserved joint space but small marginal osteophytes along the rims of the acetabula. No fracture or osteonecrosis. Soft tissues are unremarkable. IMPRESSION: 1. L4 laminectomy and instrumented L5 and S1 posterior spinal fusion. 2. Mild bilateral hip and sacroiliac osteoarthritis. Reviewed, dictated and finalized at location B.
--- NOTE | ~2021-11-05 | XR_ITS ---
EXAMINATION: XR sacroiliac joints min 3V DATE: 11/05/2021 15:14 INDICATION: Low back pain post laminectomy TECHNIQUE: AP and left and right oblique views of the sacroiliac joints were obtained. COMPARISON: CT dated 10/25/2019 FINDINGS: L5 laminectomy and L4-S1 posterior spinal fusion with bilateral plate and pedicle screw fixation with pedicle screws on the right at L4, L5 and S1 and on the left at L4 and S1. Bone alignment is normal. No fracture. Bone island at the left femoral head. Bilateral hip joint spaces are normal. Minimal bi lateral sacroiliac osteoarthritis. No erosions or subarticular sclerosis to suggest inflammatory sacr oiliitis. IMPRESSION: 1. Mild bilateral sacroiliac osteoarthritis. 2. L4 laminectomy with L3-S1 instrumented posterior spinal fusion. Reviewed, dictated and finalized at location B.
--- NOTE | ~2021-11-05 | XR_ITS ---
EXAMINATION: XR thoracic spine 3V DATE: 11/05/2021 15:14 INDICATION: Low back pain TECHNIQUE: One AP, lateral and lateral swimmer's views of the thoracic spine were obtained. COMPARISON: None. FINDINGS: 5 degrees lower thoracic levocurvature. Sagittal alignment is normal. Multilevel mild to moderate dis c height loss throughout the thoracic spine with mid thoracic predominance. Chronic mild anterior wed ging at T6 and T7. Bridging osteophytes at 3 levels in the lower thoracic spine. Spinal stimulator ne ed projects over the posterior central canal of the lower thoracic spine with distal tip at the level of T6-T7. Visualized portions of the left lung are clear. No pleural effusion or pneumothorax. Cardi omediastinal silhouette is normal. C5-C7 anterior spinal fusion with anterior plate and screw fixatio n. IMPRESSION: 1. 5 degrees thoracic dextrocurvature with mild to moderate spondylosis. Reviewed, dictated and finalized at location B.
--- NOTE | ~2021-11-05 | XR_ITS ---
EXAMINATION: XR lumbar spine min 4V DATE: 11/05/2021 15:15 INDICATION: Low back pain. Postlaminectomy. TECHNIQUE: Anteroposterior and lateral in neutral, flexion and extension views of the lumbar spine, a nd cone-down lateral view of the lumbosacral junction were obtained. COMPARISON: CT dated 11/03/2021 FINDINGS: Alignment is normal. L4 laminectomy and posterior spinal fusion with bilateral vertical azam and pedic le screw fixation at L4-S1. The more cephalad lumbar and lower thoracic vertebral body heights are no rmal. Mild disc height loss at L2-L3. Moderate disc height loss with suggestion of developing anterio r fusion at L4-L5 and L5-S1. Small anterior bridging osteophytes at L1-L2 and L2-L3. Spinal stimulato r projects of the left flank with leads extending into the central canal by interspinous process appr oach at the level of T11-T12. IMPRESSION: 1. Mild lumbar spondylosis with L4-S1. Instrumented posterior spinal fusion. Reviewed, dictated and finalized at location B.
== END 2021-11-05 14:25 | disposition home or self-care (01) ==
LOC: ANHIMG 14:27
PROVIDERS: PCP Internal Medicine; Visit Provider Anesthesiology
DX: M96.1 Postlaminectomy syndrome, not elsewhere classified (principal); M16.0 Bilateral primary osteoarthritis of hip; M47.818 Spondylosis without myelopathy or radiculopathy, sacral and sacrococcygeal region; Z98.1 Arthrodesis status; M47.817 Spondylosis without myelopathy or radiculopathy, lumbosacral region; M47.814 Spondylosis without myelopathy or radiculopathy, thoracic region
CPT/HCPCS: 72072; 72110; 72202; 73521

== ENCOUNTER 2022-01-31 14:09 | Outpatient (CLI) | payer MEDICARE, SELFPAY ==
--- NOTE | ~2022-01-31 | XR_ITS ---
EXAMINATION: XR chest 2V Exam Date/Time: 01/31/2022 14:20 CDT HISTORY: R05.9 -Cough, SOB X3WKS. RECENT BRONCHITIS. COVID 1MONTH AGO Comparison: 08/18/2018. RESULT: Lines, tubes, and devices: Stable cervical fusion hardware and stimulator leads. Right humeral head soft tissue anchors. Lungs and pleura: Clear. Cardiomediastinal silhouette: Stable. Other: No acute osseous or upper abdominal finding. IMPRESSION: No acute cardiopulmonary process. Reviewed, dictated and finalized at location K.
== END 2022-01-31 14:10 | disposition home or self-care (01) ==
PROVIDERS: PCP Internal Medicine; Visit Provider Nurse Practitioner
DX: R05.9 Cough, unspecified (principal)
CPT/HCPCS: 71046

== ENCOUNTER 2022-09-29 13:41 | Emergency (ER) | payer BC, SELFPAY ==
[2022-09-29] VITALS (14 sets, daily range): BP systolic 110–144; BP diastolic 66–108; PULSE 67–97; RESP 13–20; TEMP 36.9; O2SAT 95–97
--- NOTE | 2022-09-29 13:52 | ECG_ITS ---
Measurements Intervals [place] Rate: 73 P: 41 KS: 186 QRS: 65 QRSD: 101 T: 76 QT: 386 QTc: 428 Interpretive Statements SINUS RHYTHM COMPARED TO ECG 07/03/2020 14:15:24 NO SIGNIFICANT CHANGES Electronically Signed On 09-29-2022 15:59:11 CDT by Elham Landon M.D.
[2022-09-29 14:17] LABS: Basophils Percent Auto 0.4 % (0.2-1.2); Eosinophils Absolute Auto 0.1 K/mm3 (0-0.3); Eosinophils Percent Auto 1.3 % (0-4.4); Hematocrit 43.4 % (37.0-47.0); Hemoglobin 14.1 g/dL (12.0-15.0); Immature Granulocyte Absolute 0.01 K/mm3 (0.00-0.031); Immature Granulocyte Percent A 0.1 % (0-0.5); Lymphocytes Absolute Auto 1.99 K/mm3 (0.9-3.2); Lymphocytes Percent Auto 29.2 % (18.3-44.2); Mean Corpuscular HGB Conc 32.5 g/dl (32-36); Mean Corpuscular Hemoglobin 27.7 pg (26-34); Mean Corpuscular Volume 85.3 fl (80-100); Mean Platelet Volume 9.4 fl (7.4-10.4); Monocytes Absolute Auto 0.4 K/mm3 (0.1-0.6); Monocytes Percent Auto 6.2 % (2.6-8.5); Neutrophils Absolute Auto 4.3 K/mm3 (1.3-6.7); Neutrophils Percent Auto 62.8 % (45.5-73.1); Platelet Count Result 352 k/mm3 (150-375); Red Blood Count 5.09 M/mm3 (4.2-5.4); White Blood Count 6.8 K/mm3 (4.5-10.0)
[2022-09-29 14:36] LABS: Alanine Aminotransferase 37 U/L (6-35); Albumin Level 4.9 g/dL (3.5-5.1); Alkaline Phosphatase 111 U/L (38-126); Anion Gap 9 mmol/L (8-16); Aspartate Amino Transferase 29 U/L (14-36); Bilirubin,Total 0.6 mg/dL (0.2-1.3); Blood Urea Nitrogen 13 mg/dL (7-17); Calcium 9.1 mg/dL (8.4-10.2); Carbon Dioxide 27 mmol/L (22-30); Chloride 103 mmol/L (98-107); Estimated CRCL calculation 82 ml/min; Estimated Glomerular Filt Rate > 60; Glucose 150 mg/dL (65-110); Potassium 4.3 mmol/L (3.4-5.0); Sodium 139 mmol/L (137-145)
[2022-09-29] MEDS: SODIUM CHLORIDE 0.9% IV 1,000 ML 999 ML IV CONT (14:53)
--- NOTE | 2022-09-29 15:27 | ED.GENADULT ---
HPI - General Adult General Chief complaint: Syncope Stated complaint: syncopal episodes Time Seen by Provider: 09/29/22 13:50 History of Present Illness HPI narrative: Patient is a 62-year-old female who presents ER with syncope. She had been sitting in a chair and stood up to go into her kitchen when she got dizzy and then passed out. She reports she was caught by her . He reports she was only unconscious for 1 or 2 seconds. He is then able to get her over to the couch. Patient denies fevers or chills or sweats. She had no racing heart. She has had normal oral intake of food. Patient reports she had a nerve stimulator implanted in her back 3 weeks ago. She been doing well and was seen in the office yesterday. Patient was urinary frequency urgency or dysuria. Related Data Home Medications Medication Instructions Recorded Confirmed aspirin 81 mg tablet,delayed 81 mg PO DAILY 05/04/19 09/09/22 release (Marjorie Low Dose Aspirin) meloxicam 15 mg tablet 15 mg PO DAILY 05/04/19 09/09/22 multivitamin 1 tablet PO DAILY 05/04/19 09/09/22 ascorbic acid (vitamin C) 1,000 mg 500 mg PO DAILY 06/12/19 09/09/22 tablet black cohosh 540 mg capsule 540 mg PO DAILY 03/06/20 09/09/22 cholecalciferol (vitamin D3) 50 50 mcg PO DAILY 03/06/20 09/09/22 mcg (2,000 unit) capsule cinnamon bark 500 mg capsule 1,000 mg PO DAILY 03/06/20 09/09/22 gabapentin 800 mg tablet 800 mg PO TID PRN pain 09/09/22 09/09/22 Allergies Allergy/AdvReac Type Severity Reaction Status Date / Time shellfish derived Allergy Unknown Anaphylaxis Verified 09/09/22 13:29 amitriptyline Allergy Hallucinati Verified 09/09/22 13:29 ons Review of Systems Review of Systems: All systems reviewed & are unremarkable except as noted in HPI and below Constitutional: Constitutional: Denies chills, Denies fatigue and Denies fever(s) ENT: Denies nasal congestion and Denies sore throat Cardiovascular: Cardiovascular: Denies chest pain, Denies radiating jaw, neck or arm pain and Denies slow heart rate Respiratory: Respiratory: Denies chest congestion, Denies cough and Denies dyspnea Gastrointestinal: Gastrointestinal: Denies abdominal pain, Denies nausea and Denies vomiting Neurologic: Reports syncope, Denies headache(s), Denies focal weakness and Denies numbness PMF Past Medical History Medical History (Updated 09/29/22 @ 17:23 by See Piña MD) Anxiety Chronic pain of left knee Chronic sinusitis Colitis Constipation Depression DM w/o complication type II, uncontrolled GERD (gastroesophageal reflux disease) Headache, migraine HLD (hyperlipidemia) Hypokalemia Opioid abuse Recurrent UTI Spinal cord stimulator status Thyroid disease Urinary incontinence Surgical History Surgical History H/O left knee surgery x2 H/O neck surgery H/O right knee surgery H/O: hysterectomy History of back surgery x9 S/P right rotator cuff repair 06/2020 Family History Family History Mother Diabetes mellitus Hypertension Family history of elevated blood lipids Father Diabetes mellitus Hypertension Family history of congenital heart disease Family history of kidney disease Other Asthma Depression Family history of arthritis Family history of chronic obstructive pulmonary disease Family history of hearing loss Family history of liver disease Family history of malignant neoplasm of breast in first degree relative Family history of mental disorder Family history of obesity Social History Social History Smoking status: Never smoker Second hand tobacco smoke exposure: No Alcohol intake: current Alcohol use details: TWO DRINKS PER MONTH Substance use: never Substance use type: does not use Living arrangements: with friend(s) Spiritual care c
[2022-09-29 15:49] LABS: Glucose Point of Care 70 mg/dl (65-105)
--- NOTE | 2022-09-29 16:05 | PC.NURSE ---
Patient reports feeling like her blood sugar is low. POC BG shows blood sugar of 70. Dr Piña notified. Patient given juice and snack at this time
[2022-09-29 16:59] LABS: Appearance Urine Clear (Clear); Bacteria Urine None Seen /hpf; Bilirubin Urine Negative (Negative); Blood Urine Negative (Negative); Color Urine Yellow (Yellow); Glucose Urine UA Negative (Negative); Ketones Urine Negative (Negative); Leukocyte Esterase Ur 2+ LEU/UL (Negative); Nitrate Urine Negative (Negative); Non Pathogenic Casts 0-2; Protein Urine Negative (Negative); RBC Urine 0-2 /hpf (0-2); Specific Grav Ur 1.006 (1.001-1.035); Squamous Epithelial Cell Urine None seen /hpf (Few); Urobilinogen Urine 0.2 mg/dL (<2.0)
[2022-09-29 17:05] LABS: Add Urine Microscopic? YES
== END 2022-09-29 18:12 | disposition home or self-care (01) ==
PROVIDERS: Emergency Provider Emergency Medicine; PCP Internal Medicine
DX: N39.0 Urinary tract infection, site not specified (principal); E11.9 Type 2 diabetes mellitus without complications; E78.5 Hyperlipidemia, unspecified; E07.9 Disorder of thyroid, unspecified; K21.9 Gastro-esophageal reflux disease without esophagitis; F41.9 Anxiety disorder, unspecified; F32.A Depression, unspecified; Z96.82 Presence of neurostimulator; Z90.710 Acquired absence of both cervix and uterus; Z79.82 Long term (current) use of aspirin; Z79.85 Long-term (current) use of injectable non-insulin antidiabetic drugs
CPT/HCPCS: 36415; 80053; 81001; 82948; 85025; 87086; 93005; 96360; 99283; J7030

== ENCOUNTER 2023-02-24 13:40 | Emergency (ER) | payer BC, SELFPAY ==
[2023-02-24 14:03] VITALS: BP 116/46; PULSE 103; RESP 18; TEMP 36.3; O2SAT 100
--- NOTE | 2023-02-24 14:32 | PC.NURSE ---
pt up to desk with spouse stating she is leaving
== END 2023-02-24 15:22 | disposition left against medical advice (07) ==
PROVIDERS: PCP Internal Medicine
DX: R51.9 Headache, unspecified (principal)
CPT/HCPCS: 99199

== ENCOUNTER 2023-05-26 14:42 | Outpatient (CLI) | payer BC, SELFPAY ==
--- NOTE | ~2023-05-26 | MM_ITS ---
EXAMINATION: MM screening fernando BI w naldo HISTORY: Screening TECHNIQUE: Craniocaudal and mediolateral oblique 3-D tomosynthesis images were obtained and synthetic 2-D images were generated. CAD analysis was submitted and interpreted. COMPARISON: Comparison to multiple prior studies sequentially, with oldest reviewed study dated 11/03. BREAST PARENCHYMAL COMPOSITION: There are scattered areas of fibroglandular density. FINDINGS: There is no evidence of suspicious mass, calcification, or architectural distortion to sugg est malignancy in either breast. There has been no suspicious interval change. IMPRESSION: 1. No mammographic evidence of malignancy. 2. Recommend routine screening mammography in one year. BI-RADS Category 1: Negative Reviewed, dictated and finalized at location A. D [employer]
== END 2023-05-26 14:43 | disposition home or self-care (01) ==
PROVIDERS: PCP Internal Medicine; Visit Provider Internal Medicine
DX: Z12.31 Encounter for screening mammogram for malignant neoplasm of breast (principal)
CPT/HCPCS: 77063; 77067

== ENCOUNTER 2024-12-03 09:54 | Outpatient (CLI) | payer BC, SELFPAY ==
[2024-12-03 12:45] LABS: Basophils Percent Auto 0.4 % (0.2-1.2); Eosinophils Absolute Auto 0.1 K/mm3 (0-0.3); Eosinophils Percent Auto 2.8 % (0-4.4); Hematocrit 37.9 % (37.0-47.0); Immature Granulocyte Absolute 0.01 K/mm3 (0.00-0.031); Immature Granulocyte Percent A 0.2 % (0-0.5); Lymphocytes Absolute Auto 1.73 K/mm3 (0.9-3.2); Lymphocytes Percent Auto 34.6 % (18.3-44.2); Mean Corpuscular HGB Conc 31.7 g/dl (32-36); Mean Corpuscular Hemoglobin 26.6 pg (26-34); Mean Platelet Volume 10.2 fl (7.4-10.4); Monocytes Absolute Auto 0.4 K/mm3 (0.1-0.6); Neutrophils Absolute Auto 2.7 K/mm3 (1.3-6.7); Platelet Count Result 299 k/mm3 (150-375); Red Blood Count 4.51 M/mm3 (4.2-5.4); Red Cell Distribution Width 13.7 % (11.5-14.5)
[2024-12-03 12:55] LABS: Alanine Aminotransferase 27 U/L (6-35); Albumin Level 4.3 g/dL (3.5-5.1); Alkaline Phosphatase 61 U/L (38-126); Anion Gap 7 mmol/L (4-12); Aspartate Amino Transferase 38 U/L (14-36); Bilirubin,Total 0.3 mg/dL (0.2-1.3); Blood Urea Nitrogen 12 mg/dL (7-17); Calcium 9.4 mg/dL (8.4-10.2); Carbon Dioxide 30 mmol/L (22-30); Chloride 105 mmol/L (98-107); Cholesterol 155 mg/dL (0-200); Estimated Glomerular Filt Rate > 60; Glucose 213 mg/dL (65-110); HDL Direct 51 mg/dL; Potassium 4.7 mmol/L (3.4-5.0); Sodium 142 mmol/L (137-145); Total Protein 7.1 g/dL (6.3-8.2); Triglycerides 177 mg/dL (<150)
[2024-12-03 13:06] LABS: LDL Cholesterol Direct 62 mg/dL
[2024-12-03 13:22] LABS: Thyroid Stimulating Hormone 0.872 uIU/mL (0.465-4.680)
[2024-12-03 15:33] LABS: Hemoglobin A1C 7.7 % (<5.7)
== END 2024-12-03 09:55 | disposition home or self-care (01) ==
LOC: ANHGOSHLAB 09:55
PROVIDERS: PCP Nurse Practitioner; Visit Provider Nurse Practitioner
DX: E07.9 Disorder of thyroid, unspecified (principal); E11.9 Type 2 diabetes mellitus without complications; E55.9 Vitamin D deficiency, unspecified
CPT/HCPCS: 36415; 80053; 80061; 82306; 83036; 84443; 85025

== ENCOUNTER 2025-01-25 17:43 | Emergency (ER) | payer MEDICARE, SELFPAY ==
--- NOTE | 2025-01-25 17:51 | ED.FEMALEGU ---
HPI - Female Genitourinary General Chief complaint: Urogenital-Female Stated complaint: UTI Time Seen by Provider: 01/25/25 18:09 Source: patient and RN notes reviewed Mode of arrival: ambulatory Limitations: no limitations History of Present Illness HPI Narrative: 64-year-old female presents with concern for ongoing UTI symptoms. She reports little over week ago she started treatment for UTI from an urgent care with Bactrim. Reports her symptoms were not improving so she called them and they replaced Bactrim with ciprofloxacin. Reports she is on ciprofloxacin for 3 days with no relief. She reports chills, nausea, back pain, general malaise, dysuria, incontinence. MD elicited complaint: UTI Related Data Home Medications ?Medication ?Instructions ?Recorded ?Confirmed ?Last Taken ?Type aspirin 81 mg tablet,delayed 81 mg PO DAILY 05/04/19 11/01/24 07/03/20 History release (Marjorie Low Dose Aspirin) black cohosh 540 mg capsule 540 mg PO DAILY 03/06/20 11/01/24 07/05/20 History gabapentin 800 mg tablet 800 mg PO TID PRN pain 09/09/22 11/01/24 Unknown History hydroxychloroquine 200 mg tablet 200 mg PO BID 11/01/24 11/01/24 Unknown History linagliptin 5 mg tablet (Tradjenta) 5 mg PO DAILY 11/01/24 11/01/24 Unknown History midodrine 5 mg tablet 5 mg PO TID 11/01/24 11/01/24 Unknown History propranolol 10 mg tablet 10 mg PO BID 11/01/24 11/01/24 Unknown History cariprazine 1.5 mg capsule 1.5 mg PO DAILY 12/07/24 Unknown History (Vraylar) bupropion HCl 150 mg 24 hr tablet, mg PO 01/25/25 Unknown History extended release ciprofloxacin HCl 500 mg tablet mg 01/25/25 Unknown History fluconazole 100 mg tablet mg 01/25/25 Unknown History Allergies Allergy/AdvReac Type Severity Reaction Status Date / Time shellfish derived Allergy Unknown Anaphylaxis Verified 01/25/25 17:47 amitriptyline Allergy Hallucinati Verified 01/25/25 17:47 ons Review of Systems Review of Systems: CONSTITUTIONAL: Reports malaise, chills CARDIOVASCULAR: Denies chest pain, palpitations, or edema. RESPIRATORY: Denies cough or dyspnea. GASTROINTESTINAL: Denies abdominal pain. Reports suprapubic pressure, nausea. Denies vomiting, diarrhea GENITOURINARY: Reports dysuria, frequency, urgency, incontinence. Denies flank pain or hematuria. SKIN: Denies rash or itching. MUSCULOSKELETAL: Reports back pain, myalgia. All systems reviewed & are unremarkable except as noted in HPI and below PMFSH Past Medical History Medical History (Updated 01/25/25 @ 18:22 by Kendra Hernandez NP) Anxiety GERD (gastroesophageal reflux disease) Chronic sinusitis Colitis Urinary incontinence Constipation Depression Headache, migraine HLD (hyperlipidemia) Recurrent UTI Spinal cord stimulator status Thyroid disease Hypokalemia Opioid abuse DM w/o complication type II, uncontrolled Chronic pain of left knee Surgical History Surgical History H/O cardiac catheterization S/P right rotator cuff repair 06/2020 History of back surgery x9 H/O: hysterectomy H/O right knee surgery H/O left knee surgery x2 H/O neck surgery Family History Family History Mother Diabetes mellitus Hypertension Family history of elevated blood lipids Father Diabetes mellitus Hypertension Family history of congenital heart disease Family history of kidney disease Other Asthma Depression Family history of arthritis Family history of chronic obstructive pulmonary disease Family history of hearing loss Family history of liver disease Family history of malignant neoplasm of breast in first degree relative Family history of mental disorder Family history of obesity Social History Social History Smoking status: Never smoker Second hand tobacco smoke exposure: No Alcohol intake: current Alcohol use details: TWO DRINKS PER MONTH Substance use: never Substance use type: does not use Living arrangements: with friend(s) Spiritual care concerns: No Comments At time of signature, agree with nursing past medical, surgical, social and family history. There is no relevant family history pertinent to the presenting complaint Exam Narrative: GENERAL: Nontoxic-appearing, well-nourished, and in no acute distress. HEAD: Normocephalic. EYES: PERRLA, conjunctivae clear. NECK: Supple. No lymphadenopathy CHEST: Clear to auscultation. No respiratory distress. HEART: Regular rate and rhythm. SKIN: Warm, dry, no rash. NEURO: Alert and oriented x3. PSYCH: Normal mood and affect Course Course Emergency Course: Patient is aware of diagnosis, understands and agrees to treatment plan. Anticipatory guidance given. Patient agrees to follow-up as directed and is aware of reasons to seek care at the emergency department. Portions of this record may have been created with voice recognition software Level of Care: Express Care Visit Vital Signs Vital signs: Reviewed. Transfer Transfered to: [place] Transportation: Other (Private vehicle) Transfer rationale: Malaise, fever, not responding to antibiotics for UTI Accepting physician: Sascha MDM - Female Genitourinary MDM Narrative Medical decision making narrative: EPatient is non-toxic appearing and is in no distress. Patient is appropriate for outpatient treatment and follow-up. Critical Care Time Critical Care Time Critical Care Time: No Discharge Plan Discharge Clinical Impression: Dysuria Patient Disposition: Acute Care Hospital Condition: Stable Patient Language: Mongolian Prescriptions: No Action black cohosh 540 mg capsule 540 mg PO DAILY gabapentin 800 mg tablet 800 mg PO TID PRN (Reason: pain) Tradjenta 5 mg tablet 5 mg PO DAILY midodrine 5 mg tablet 5 mg PO TID propranolol 10 mg tablet 10 mg PO BID diclofenac sodium 75 mg tablet,delayed release (DR/EC) 75 mg PO BID sulfamethoxazole-trimethoprim [Bactrim DS] 800-160 mg tablet 1 tablet PO Q12H hydroxychloroquine 200 mg tablet 200 mg PO BID meloxicam 15 mg tablet 15 mg PO DAILY aspirin [Marjorie Low Dose Aspirin] 81 mg tablet,delayed release (DR/EC) 81 mg PO DAILY (DME) OneTouch Verio test strips Strip See Rx Instructions .Route Qty: 100 4RF Rx Instructions: Use to test blood sugar three times a day venlafaxine 150 mg capsule,extended release 24hr See Rx Instructions .ROUTE .COMPLEX Qty: 90 1RF Dose Instruction: TAKE 1 CAPSULE BY MOUTH DAILY Rx Instructions: TAKE 1 CAPSULE BY MOUTH DAILY cetirizine 10 mg tablet See Rx Instructions .ROUTE .COMPLEX Qty: 90 1RF Dose Instruction: TAKE 1 TABLET BY MOUTH EVERY DAY NEEDED FOR ALLERGY SYMPTOMS Rx Instructions: TAKE 1 TABLET BY MOUTH EVERY DAY NEEDED FOR ALLERGY SYMPTOMS levothyroxine 125 mcg tablet See Rx Instructions .ROUTE .COMPLEX Qty: 90 0RF Dose Instruction: TAKE 1 TABLET BY MOUTH DAILY Rx Instructions: TAKE 1 TABLET BY MOUTH DAILY. due for an appointment last refill until seen. rosuvastatin 20 mg tablet 20 mg PO DAILY Qty: 90 0RF Vraylar 1.5 mg capsule 1.5 mg PO DAILY metformin 500 mg tablet 500 mg PO BID Qty: 180 1RF Linzess 72 mcg capsule 72 mcg PO DAILY Qty: 90 1RF Trulicity 0.75 mg/0.5 mL pen injector 0.75 mg subcut WEEKLY Qty: 2 5RF Follow-up/Referrals: Chelsie Rivas DEPOSIT REFUND CLERK [Primary Care Provider] - Time of Disposition: 18:22
[2025-01-25 18:18] LABS: EDUAAPPEAR Clear; EDUABILI Negative (Negative); EDUABLOOD Negative (Negative); EDUACOLOR1 Light/Pale; EDUAGLUCOSE Negative (Negative); EDUAKETONE Negative (Negative); EDUALEUKO Negative (Negative); EDUANITRATE Negative (Negative); EDUAPH 6.5; EDUAPROTEIN Negative (Negative); EDUASPGRAVITY 1.010; EDUAUROBILI 0.2
== END 2025-01-25 18:17 | disposition short-term general hospital (02) ==
PROVIDERS: Emergency Provider Nurse Practitioner; PCP Nurse Practitioner
DX: R30.0 Dysuria (principal); E11.9 Type 2 diabetes mellitus without complications; Z79.84 Long term (current) use of oral hypoglycemic drugs; Z79.85 Long-term (current) use of injectable non-insulin antidiabetic drugs; K21.9 Gastro-esophageal reflux disease without esophagitis; E78.5 Hyperlipidemia, unspecified; F41.9 Anxiety disorder, unspecified; F32.A Depression, unspecified; Z96.82 Presence of neurostimulator
CPT/HCPCS: 81003; 99212; G0463

== ENCOUNTER 2025-01-25 18:33 | Emergency (ER) | payer MEDICARE, SELFPAY ==
[2025-01-25] VITALS (11 sets, daily range): BP systolic 117–148; BP diastolic 51–64; PULSE 61–77; RESP 19–21; TEMP 37.1; O2SAT 96–99
--- NOTE | ~2025-01-25 | CT_ITS ---
CLINICAL INDICATION: Right flank pain. Pyelonephritis versus ureterolithiasis suspected clinically. COMPARISON: 10/25/2019. TECHNIQUE: Multiple contiguous axial images of the abdomen and pelvis were performed following the ad ministration of with 100 mL Omnipaque-350 intravenous contrast The dose-length product (DLP) was 953.73 mGy-cm. Automated exposure control and iterative reconstruction technique were employed. FINDINGS/OBSERVATIONS: Visualized lower thorax: The bilateral lung bases are clear. The heart is of normal size, without pericardial effusion. Small hiatal hernia is present. Liver: The liver demonstrates homogeneous enhancement and is not enlarged. Gallbladder and biliary system: The gallbladder is decompressed, and otherwise unremarkable. Pancreas: The pancreas enhances homogeneously without ductal dilatation. Spleen: The spleen enhances homogeneously and is not enlarged. 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 Interval enlargement of the right pararenal cyst when compared with previous examination. Mild bilateral hydroureteronephrosis likely secondary to bladder distention rather than intrinsic ure teral disease. No renal calculi are identified. Adrenal glands: Unremarkable. Gastrointestinal tract: Fecal stasis within the colon. Appendix: The air-filled appendix is of normal caliber (axial series, images 107 through 119) Vasculature: Unremarkable. Lymph nodes: No pathologically enlarged or morphologically suspicious lymph nodes within the retroperitoneum or at the root of the mesentery. Pelvic structures: The bladder is markedly distended, and otherwise unremarkable. The uterus is atrophic or surgically absent. Body wall and musculoskeletal: Posterior fixation of the lumbar spine at the levels of L4, L5 and S1. Spinal stimulator within the thoracic spinal canal. Age-appropriate degenerative disease within the lower thoracic and lumbosacral spines. IMPRESSION: No obstructive uropathy. Significant bladder distention leading to bilateral hydroureteronephrosis without evidence of obstruc tion. No cross-sectional imaging evidence to suggest the presence of pyelonephritis or ureterolithiasis. Please correlate these findings to the patient's urinalysis for complete evaluation. Reviewed, dictated and finalized at location A. IMPRESSION: No obstructive uropathy. Significant bladder distention leading to bilateral hydroureteronephrosis witho ut evidence of obstruction. No cross-sectional imaging evidence to suggest the presence of pyelonephritis o r ureterolithiasis. Please correlate these findings to the patient's urinalysis for complete evalua tion.
--- OUTSIDE RECORDS SUMMARY | 2025-01-25 18:35 | XMS_ITS | Clinical Summary ---
Author Organization [facility] Address [address] [place] [address] Care Team Providers Care Electron Gun Assembler Name Role Phone Unknown, Provider Primary Care Provider Unavaila ble Source Comments [facility],non-owned Affiliates and Associated Physician Practices is amultiple site organization consisting of ambulatory clinics and hospital sitesin [place], [place], [place] and [place]. This disclosure is being madepursuant to the Care Everywhere program and may not contain all information available regarding this patient. Last updated 18.[facility] [employer] Allergies Active Allergy Reactions Criticality Noted Date Comments Amitriptyline Psychiatric Medium 10/22/2022 Metformin Diarrhea Low 10/28/2022 Shellfish Swelling Medium 08/10/2014 Swelling Medications * Be aware that medications may not be up to date on this document. Alwaysverify current medications with the patient. cetirizine (ZyrTEC) 10 MG tablet Take 1 (one) tablet by mouth once daily 3 Active levothyroxine (Synthroid) 125 MCG tablet Take 1 (one) tablet by mouth once daily 3 Active gabapentin (Neurontin) 800 MG tablet Take 1 (one) tablet by mouth 4 times daily as needed 3 Active meloxicam (Mobic) 15 MG tablet Take 1 (one) tablet by mouth once daily 3 Active aspirin EC (Ecotrin) 81 MG tablet Take 1 (one) tablet by mouth once daily 3 Active buPROPion XL 24hr (Wellbutrin-XL ) 150 MG tablet Take 1 (one) tablet by mouth every morning 4 Active Trulicity 1.5 MG/0.5ML injection Inject 1.5 (one and one-half) mg subcutaneously every 7 days Active hydroxychloroq uine (Plaquenil) 200 MG tablet Take 1 (one) tablet by mouth once daily Active metFORMIN (Glucophage) 500 MG tablet Take 1 (one) tablet by mouth 2 times daily with morning and evening meal 4 Active rosuvastatin (Crestor) 20 MG tablet Take 1 (one) tablet by mouth at bedtime 4 Active propranolol (Inderal) 10 MG tablet Take 1 (one) tablet by mouth 2 times daily 120 tablet 5 4 Active midodrine (Proamatine) 5 MG tablet TAKE 1 TABLET BY MOUTH THREE TIMES DAILY BEFORE MEALS 270 tablet 3 5 Active Vraylar 1.5 MG capsule Take 1 (one) capsule by mouth at bedtime 5 Active diclofenac sodium EC (Voltaren) 75 MG tablet Take 1 (one) tablet by mouth 2 times daily 5 Active Linzess 72 MCG capsule Take 1 (one) capsule by mouth once daily 5 Active linaGLIPtin (Tradjenta) 5 MG tablet Take 1 (one) tablet by mouth once daily 5 Active metFORMIN (Glucophage) 1000 MG tablet Take 1 (one) tablet by mouth 2 times daily 5 Active venlafaxine XR 24hr (Effexor XR) 150 MG capsule Take 1 (one) capsule by mouth daily with breakfast 5 Active estradiol (Estrace) 1 MG tablet Take 1 (one) tablet by mouth once daily Active guanFACINE (Tenex) 1 MG tabletIndicati ons:Autonomic dysfunction,Au tonomic neuropathy Take 1 (one) tablet by mouth at bedtime 90 tablet 4 5 Active Active Problems Problem Noted Date Diagnosed Date Hypothyroidism 04/03/2023 Autonomic dysfunction 04/03/2023 COVID 03/05/2023 Overview (03/27/2024): x5 Family history of cardiac disorder 01/12/2023 04/03/2023 Encounter for screening for cardiovascular disor ders 01/04/2023 04/03/2023 Syncope 10/22/2022 04/03/2023 Overview (04/03/2023): Last Assessment & Plan: Normal health until about 1 month ago. Has prodrome of palpitations, LH, diaphoresis, SOB. Unrelated to positioning as symptoms may occur after standing for a long period of time or while driving her car. Patient has checked BG during episodes, which was normal. Unclear etiology, however likely cardiac vs vaso vagal. Can also consider PoTS or autonomic dysfunction iso DM. Hypoglycemia and infection less likely. Orthostatics on the floor after 1L bolus was positive for HR but negative for BP. CTH negative for mass or acute processes. EKG NSR. CBC, CMP, Mg, BG, BNP, UA, trops, CXR unremarkable. - No events on telemetry - TTE with normal EF 58%, impaired diastolic function, normal valves. Slightly small IVC - Additional IVF given due to diminished IVC - Repeat orthostatics today -Plan for 30 day event monitor Sinus tachycardia Mixed hyperlipidemia Diabetes Depression Anxiety disorder Arachnoiditis Psoriatic arthritis Encounters Date Type Department Care Team Description 12/25/2024 2:00 PM CDT Office Visit [facility] [address] [id number] Sandra Tabares MD Syncope and collapse (Primary Dx); Autonomic dysfunction; CSF leak; Diabetes mellitus due to underlying condition with hyperosmolarity without coma, without long-term current use of insulin (HCC); Autonomic neuropathy from Last 3 Months Family History Medical History Relation Name Comments Other Brother DM,HTN,High cho l, Diabetes; unknown type Father High chol,HTN, Other Mother DM,High chol,Lo w B/P,Septic Other Sister Psoriatic arthr itis,Pre DM, Relation Name Status Comments Brother Alive Father Mother Sister Alive Social History Tobacco Use Types Packs/Day Years Used Date Smoking Tobacco: Never Smokeless Tobacco: Never Tobacco Cessation:Counseling Given: Not Answered Alcohol Use Standard Drinks/Week Comments Yes 0 (1 standard drink = 0.6 oz pur e alcohol) Occasionally PHQ-2 Answer Date Recorded Patient Health Questionnaire-2 Score 0 03/28/2023 Comments No Sex and Gender Information Value Date Recorded Sex Assigned at Female 05/10/2023 11:12 PM DEPUTY [place] Legal Sex Female 11:44 AM CDT Gender Identity Female 05/10/2023 11:12 PM DEPUTY [place] Sexual Orientation Straight 05/10/2023 11 :12 PM DEPUTY [place] [employer] 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 Not on file Not on file Not o n file Last Filed Vital Signs Vital Sign Reading Time Taken Comments Blood Pressure 132/70 03/27/2024 11:17 AM CDT Pulse 73 03/27/2024 11:17 AM CDT Temperature 36.4 C (97.5 F) 03/28/2023 1:10 PM CDT Respiratory Rate - - Oxygen Saturation 95% 03/28/2023 1:10 PM CDT Inhaled Oxygen Concentration - - Weight 91.2 kg (201 lb) 12/25/2024 1:55 PM CDT Height 170.2 cm (5' 7) 03/27/2024 11:17 AM CDT Body Mass Index 31.48 03/27/2024 11:17 AM CDT Plan of Treatment Upcoming Encounters Date Type Department Care Team (Late st Contact Info) Description 12/26/2025 1:00 PM CDT Office Visit [facility] [address] [place], [place] [id number] Nadege Obrien, E COMMERCE STRATEGIST-DIRECTOR [facility] [address] [facility] [facility] [address] [place] [address] Health Maintenance Due Date Last Done Comments COLOGUARD (AGES 45-75) - COLON CA SCREENING 1960 COLON MONITORING 1960 COLONOSCOPY - COLON CA SCREENING 1960 CT COLONOGRAPHY - COLON CA SCREENING 1960 Colorectal Cancer Screening 1960 FIT - COLON CA SCREENING 1960 FLEX SIG - COLON CA SCREENING 1960 HIV SCREENING 1975 DTAP/TDAP/TD VACCINES (1 - Tdap) 1979 PNEUMOCOCCAL VACCINE 50+ (1 of 2 - PCV) 1979 PAP SMEAR 1981 ZOSTER VACCINE (1 of 2) 2010 MAMMOGRAM 09/22/2017 09/23/2015 COVID-19 VACCINE (1 - season) 2024 DIABETES RETINOPATHY SCREENING 03/27/2024 DIABETES-FOOT EXAM WITH MONOFILAMENT 03/27/2024 DEPRESSION SCREENING 06/13/2024 03/28/2023 DIABETES - URINE PROTEIN SCREENING 06/13/2024 MEDICARE AWV CALENDAR YEAR 2024 INFLUENZA VACCINE (#1) 2025 DIABETES-HGB A1C 04/09/2025 10/08/2024, , 08/02/2023, Additional history exists DIABETES-SERUM CREATININE 10/08/20252024, 01/31/2024, 08/02/2023, Additional history exists Respiratory Syncytial Virus (RSV) Vaccine Pt: or over 60 yrs (1 - 1-dose 75+ series) 2035 HEPATITIS C SCREENING Completed 10/10/2023 HEPATITIS B VACCINE Aged Out No longe r eligible based on patient's age to complete this topic HIB VACCINE Aged Out No longer eligi ble based on patient's age to complete this topic HPV VACCINE Aged Out No longer eligi ble based on patient's age to complete this topic MENINGOCOCCAL (Group B) VACCINE SHARED DECISION-MAKING Aged Out No longer eligible based on patient's age to complete this topic MENINGOCOCCAL GROUPS A/C/Y/W VACCINE Aged Out No longer eligible based on patient's age to complete this topic Procedures Procedure Name Priority Date/Time Associated Diagnosis Comments MAMMO BILAT SCREENING Routine 09/23/2015 12:10 PM CDT Visit for screening mammogram from Last 3 Months or Most Recently Relevant to Health Maintenance Results * MAMMO SCREENING DIGITAL IMAGE BILAT [id number] (09/23/2015 12:10 PM CDT) Anatomical Region Laterality Modality Breast Bilateral Mammography 09/25/2015 9:11 AM CDT Narrative 09/25/2015 9:26 AM CDT DIGITAL BILATERAL SCREENING MAMMOGRAMS WITH CAD CORRELATION DATE: 09/23/15 PREVIOUS EXAM DATE: 08/31/11, 01/15/09 INDICATION: Screening. TECHNIQUE: Bilateral craniocaudad (CC) and mediolateral oblique (MLO) views. The study was interpreted with the aid of CAD. TECHNOLOGIST: Elaina Hou, RT (R) (M) TISSUE DENSITY: Scattered fibroglandular elements. FINDINGS: There is no discrete abnormality. There is no mass nor microcalcification evident. ASSESSMENT: (BI-RADS 1) Negative. RECOMMENDATIONS: Followup one year. The above findings should be correlated with physical examination. A relatively nonspecific study should not preclude additional evaluation if suspicious findings are present clinically. An [employer] Certified Facility. [facility] Centers utilize [facility] ([facility]) as a reminder system to notify patients of their next recommended mammograms. Edited by Trudi Nixon on 09/25/2015 9:12 AM Trudi Johns E COMMERCE STRATEGIST-DIRECTOR [facility] MAMMO ORDERABLES Fin al Result from Last 3 Months or Most Recently Relevant to Health Maintenance Insurance ANTHEM ANTHEM Care Teams Electron Gun Assembler Relationship Specialty Start Date End Date Unknown, Provider PCP - General 12/25/24
--- OUTSIDE RECORDS SUMMARY | 2025-01-25 18:35 | XMS_ITS | Patient Health Record ---
Author Organization [facility] Address [address] [place] [address] Care Team Providers Care Show Host Or Hostess Name Role Phone Beka Wilson Primary Care Provider Pati Chicas Unavailable [phone] Allergies Allergen (clinical drug ingredient) Drug/Non Drug Allergy documented on EMR Reaction Allergy Type Onset Date Status amitriptyline Amitriptyline Unknown Drug Allergy Active Shellfish (FN) Shellfish-derived Products Unknown Drug Allergy Active Reason For Referral No Information Medications Medication SIG (Take, Route, Frequency, Duration) Notes Start Date End Date Status Meloxicam 15 MG TAKE 1 TABLET BY MARGARITA TH EVERY DAY Oral; Duration: 30 Days Active Diclofenac Sodium 75 MG Oral; Duration: 45 Days Active Meloxicam 15 MG 1 tablet Orally Once a day; Duration: 30 day(s) Active Hydroxychloroquine Sulfate 200 MG TAKE 1 TABLET BY MOUTH TWICE DAILY WITH FOOD; Duration: 90 Active Gabapentin 800 MG 1 tablet Orally at bedtime; Duration: 30 day(s) Active Trulicity 0.75 MG/0.5ML Subcutaneous; Du ration: 28 Days Active Aspirin 81 81 MG 1 tablet Orally Once a day; Duration: 30 day(s) Active Propranolol HCl 10 MG 1 tablet on an emp ty stomach Orally every 12 hrs; Duration: 30 day(s) Active Rosuvastatin Calcium Active Midodrine HCl 5 MG 1 tablet Orally thre e a day; Duration: 30 day(s) Active Venlafaxine HCl ER 150 MG 1 capsule with food Orally Once a day; Duration: 30 day(s) Active Cetirizine HCl 10 MG 1 tablet Orally Onc e a day; Duration: 30 day(s) Active metFORMIN HCl 500 MG 1 tablet with a trinidad l Orally twice a day; Duration: 30 day(s) Active buPROPion HCl ER (XL) 150 MG 1 tablet in the morning Orally Once a day; Duration: 30 day(s) Active Trulicity 1.5 MG/0.5ML as directed Subcutaneous Active FreeStyle Ellis 3 [place] Active Levothyroxine Sodium 125 MCG 1 tablet in the morning on an empty stomach Orally Once a day; Duration: 30 day(s) Active Social History Tobacco Use: Social History Observation Description Date Details (start date - stop date) Never Smoker NA - NA Household Question Answer Notes Marital status: Tobacco Control (Standard) Question Answer Notes Tobacco use: Nonsmoker Problems Problem Type SNOMED Code ICD Code Onset Dates Problem Status W/U Status Risk Notes Problem Chronic pain (36799679) Other chronic pain (G89.29) Active confirmed Problem Inflammatory arthritis (6569474) Inflammatory arthritis (M19.90) Active confirmed Problem Localized, primary osteoarthritis of the hand (252255067) 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 Vital Signs Heart Rate 63 /min 12/31/2024 Temperature 97.6 degrees Fahrenheit 12/31/2024 Height-cm 170.18 cm 12/31/2024 Blood pressure diastolic 78 mm Hg 12/31/2024 Oximetry 99 % 12/31/2024 Weight-kg 92.99 kg 12/31/2024 Height 67 in 12/31/2024 Blood pressure systolic 122 mm Hg 12/31/2024 Weight 205 lbs 12/31/2024 BMI 32.1 kg/m2 12/31/2024 Encounters Encounter Location Date Provider Diagnosis [facility] [address] [address] [place] [address] 01/27/2024 [facility] [address] [place] [address] 01/31/2024 [facility] [address] [facility] [address] [place] [address] 02/21/2024 Pati Ray Inflammatory arthrit is M19.90 ; Achilles tendinitis, left leg M76.62 ; CMC arthritis M19.049 and High risk medication use Z79.899 [facility] [address] [place] [address] 05/22/2024 Pati Ray Inflammatory arthrit is M19.90 ; Achilles tendinitis, left leg M76.62 ; CMC arthritis M19.049 and High risk medication use Z79.899 [facility] [address] [place] [address] 09/13/2024 Pati Du [facility] [address] [place] [address] 12/31/2024 Pati Du Inflammatory arthrit is M19.90 ; Achilles tendinitis, left leg M76.62 ; CMC arthritis M19.049 and High risk medication use Z79.899 [facility] [address] [place] [address] 01/26/2024 Pati Du Inflammatory arthrit is M19.90 [facility] [address] [place] [address] 01/31/2024 Pati Du [facility] [address] [place] [address] 02/28/2024 Pati Du Inflammatory arthrit is M19.90 [facility] [address] [address] 05/30/2024 Pati Du Inflammatory arthrit is M19.90 [facility] [address] [address] 11/28/2024 Pati Du Inflammatory arthrit is M19.90 [facility] [address] [place] [address] 01/15/2025 Pati Du Assessments Encounter Date Diagnosis (ICD Code) Assessment Notes Treatment Notes Treatment Clinical Notes Section Notes 01/26/2024 Inflammatory arthritis (ICD-10 - M19.90) 02/21/2024 Achilles tendinitis, left leg (ICD-10 - M76.62) improving, continue plaquenil 400mg/day, try thumb splinting, return in 3 months 02/21/2024 Inflammatory arthritis (ICD-10 - M19.90) improving, continue plaquenil 400mg/day, try thumb splinting, return in 3 months 02/28/2024 Inflammatory arthritis (ICD-10 - M19.90) 05/30/2024 Inflammatory arthritis (ICD-10 - M19.90) 11/28/2024 Inflammatory arthritis (ICD-10 - M19.90) 05/22/2024 Inflammatory arthritis (ICD-10 - M19.90) start a medrol pack, continue plaquenil 400mg/day and gabapentin, on mobic, advised to stop ibuprofen, return in 3 months 12/31/2024 Inflammatory arthritis (ICD-10 - M19.90) R CMC injected wit 20mg of kenalog, continue plaquenil 400mg/day and gabapentin, return in 6 months 12/31/2024 Achilles tendinitis, left leg (ICD-10 - M76.62) R CMC injected wit 20mg of kenalog, continue plaquenil 400mg/day and gabapentin, return in 6 months 05/22/2024 Achilles tendinitis, left leg (ICD-10 - M76.62) start a medrol pack, continue plaquenil 400mg/day and gabapentin, on mobic, advised to stop ibuprofen, return in 3 months 02/21/2024 CMC arthritis (ICD-10 - M19.049) improving, continue plaquenil 400mg/day, try thumb splinting, return in 3 months 02/21/2024 High risk medication use (ICD-10 - Z79.899) improving, continue plaquenil 400mg/day, try thumb splinting, return in 3 months 12/31/2024 CMC arthritis (ICD-10 - M19.049) R CMC injected wit 20mg of kenalog, continue plaquenil 400mg/day and gabapentin, return in 6 months 05/22/2024 CMC arthritis (ICD-10 - M19.049) start a medrol pack, continue plaquenil 400mg/day and gabapentin, on mobic, advised to stop ibuprofen, return in 3 months 12/31/2024 High risk medication use (ICD-10 - Z79.899) R CMC injected wit 20mg of kenalog, continue plaquenil 400mg/day and gabapentin, return in 6 months 05/22/2024 High risk medication use (ICD-10 - Z79.899) start a medrol pack, continue plaquenil 400mg/day and gabapentin, on mobic, advised to stop ibuprofen, return in 3 months Plan Of Treatment Pending Test Test Name Order Date X ray : Ankle, left 10/10/2023 X ray : Foot, left 10/10/2023 X ray : Foot, right 10/10/2023 X ray : Hands, bilateral 10/10/2023 Creatine Kinase,Total,Serum 10/10/2023 G-6-PD, Quant, Blood and RBC 10/10/2023 CBC With Differential/Platelet Sedimentation Rate-Westergren 10/10/2023 Rheumatoid Arthritis Factor 10/10/2023 C-Reactive Protein, Quant 10/10/2023 HLA B 27 Disease Association 10/10/2023 Sjogren's Ab, Anti-SS-A/-SS-B 10/10/2023 CCP IgG Antibodies 10/10/2023 VIOLA w/Reflex 10/10/2023 Hepatitis BsAg 10/10/2023 Hepatitis C antibody 10/10/2023 Chem-Comprehensive 10/10/2023 Next Appt Details Provider Name:Pati Ray, 07/03 01:30:00 PM, [address], [place], [address], Insurance Providers Payer Name Payer Address Payer Phone Subscriber Number Group Number Insured Name Patient Relationship to Insured Coverage Start Date Coverage End Date [place] [address] [place] [address] [id number] Weeks Self - patient is the insured Medical (General) History Medical History History ICD Code diabetes, hyperlipidemia, op ioid dependence, hypothyroidism, syncope, chronic arachnoiditis, migraine, vitamin D deficiency, sleep apnea Surgical History Surgery Date(Month/Year) back surgery, neck surgery, knee replacement, arthroscopic knee surgery, KARSTEN, loop recorder, cardiac cath, spinal stimulator, rotator cuff
--- OUTSIDE RECORDS SUMMARY | 2025-01-25 18:35 | XMS_ITS | Clinical Summary ---
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 Gender Identity Not on file Sexual Orientation Not on file Plan of Treatment Health Maintenance Due Date Last Done Comments DIABETES ANNUAL FOOT EXAM 1978 DIABETES ANNUAL RETINAL EXAM 1978 DIABETES MICROALBUMIN ANNUAL SCREEN 1978 LDL CHOLESTEROL ANNUAL 1978 DTAP/TDAP/TD VACCINES (1 - Tdap) 1979 ZOSTER VACCINE (1 of 2) 1979 COLORECTAL SCREENING 2005 Colorectal Cancer Screening 2005 FIT-DNA Q 3 years 2005 FIT/FOBT Q 1 year 2005 Flex Sig/CT Colonography Q 5 years 2005 BREAST CANCER SCREENING 09/22/2016 09/23/2015 RSV VACCINE (60+ or ) (1 - Risk 60-74 years 1-dose series) 2020 DIABETES HBA1C Q 6 MONTHS 04/24/2023 10/22/2022 INFLUENZA VACCINE (#1) 2025 Medical Devices Implanted Type Area Functional Tester Device Identifier Shelf Expiration Date Model / Serial / Lot Neuro Stimulator Neuro Stimulator [employer] PROCLAIM 3660 / / Description:Leads - 3186 NORMAL mode This model 3660 and leads of 3186 can now be scanned for any body part in NORMAL mode. No JS restrictions. Pt must have remote to turn into MRI mode or off ONLY 30 mins of scan time, no coil restrictions-ana maría 02/11/23 Loop Recorder Insurance BCBS MEDICARE Care Teams Cloth Printing Inspector Relationship Specialty Start Date End Date Beka Wilson DO [address] [facility] [address] [place] [phone] PCP - General Internal Medicine 06/16/17
--- OUTSIDE RECORDS SUMMARY | 2025-01-25 18:35 | XMS_ITS | Continuity of Care Document ---
Author Organization [facility] Address [address] [place] [address] Phone Care Team Providers Care Billing Associate Name Role Phone Parish THOMAS, Liliana Unavailable [...] Diagnoses Date Provider Providers Copied on Encounter [facility], [address], [place], [place], [address], tel:[phone] [facility] No Information Parish Ford. [id number] [place] [address], [address], [place], [place], [address] . tel: [phone] [facility], [address], [place], [place], [address], tel:[phone] [facility] No Information Roger Ireland. [address] [place] [address], [address], [place], [place], [address] , [place]. tel: [phone] [facility], [address], [place], [place], [address], tel:[phone] [facility] MUSCLE WEAKNESS-GENERAL 6 Roger Ireland[address] [place] [address], [address], [place], [place], [address] , . tel: [phone] [facility], [address], [place], [place], [address], [place] tel:[phone] [facility] [place] MALAISE AND FATIGUE NECHEADACHE 6 Roger Ireland. [address] [place] [address], [address], [place], [place], [address] , [place]. tel: [phone] [facility], [address], [place], [place], [address], [place] tel:[phone] [facility] [place] OTHER ALTER CONSCIOUSNES 6 Roger Ireland. [address] [place] [address], [address], [place], [place], [address] , [place]. tel: [phone] [facility], [address], [place], [place], [address], [place] tel:[phone] [facility] CHR INTERSTIT CYSTITIS 6 Roger Ireland. [address] [place] [address], [address], [place], [place], [address] , [place]. tel: [phone] [facility], [address] [facility], [place], [place], [address], [place] tel:[phone] [facility] [place] No Information 6 Roger Ireland. [address] [place] [address], [address], [place], [place], [address] , [place]. tel: [phone] [facility], [address], [place], [address], [place] tel:[phone] [facility] SCIATICASPONDYLOS NOS W/O MYELOP 6 Janki Singh. [address] [facility], [place], [place], [address] , [place]. tel: [phone] [facility], [address], [place], [place], [address], [place] tel:[phone] [facility] ABDMNAL PAIN UNSPCF SITE [address] [place] [address], [address], [place], [place], [address] , [place]. tel: [phone] [facility], [address], [place], [place], [address], [place] tel:[phone] [facility] NAUSEA ALONESYMPT FEM CLIMACT STATEDIARRHEA 5 Roger Ireland. [address] [facility], [address], [place], [place], [address] , [place]. tel: [phone] [facility], [address], [place], [place], [address], [place] tel:[phone] [facility] [place] ABDMNAL PAIN GENERALIZED 5 Roger Ireland. [address] [facility], [address], [place], [place], [address] , [place]. tel: [phone] [facility], [address], [place], [place], [address], [place] tel:[phone] [facility] BACKACHE NOSEPISODIC MOOD DISORD NEC 200 5 Mallory Decker. [address] , [address], [place], [place], [address] , . tel: [phone] [facility], [address], [place], [address], [place] tel:[phone] [facility] URIN TRACT INFECTION NOS May-0 4 [place]. [address] , [address], [place], [place], [address] , [place]. tel: [phone] [facility], [address], [place], [place], [address], [place] tel:[phone] [facility] PYELONEPHRITIS NOSHEMATURIA 4 [place]. [address] , [address], [place], [place], [address] , [place]. tel: [phone] [facility], [address], [place], [address], [place] tel:[phone] [facility] ABDMNAL PAIN RT LWR QUAD 4 Roger Ireland. [address] [facility], [address], [place], [place], [address] , . tel: [phone] [facility], [address], [place], [place], [address], tel:[phone] [facility] HYPOGLYCEMIA NOS Javed- 4 Roger Ireland. [address] [place] [address], [address], [place], [place], [address] , . tel: [phone] [facility], [address], [place], [place], [address], tel:[phone] [facility] URINARY FREQUENCY Mar-0 200 3 Roger Ireland. [address] [place] [address], [address], [place], [place], [address] , . tel: [phone] Family History Family Member Type Diagnosis Age [...]
--- OUTSIDE RECORDS SUMMARY | 2025-01-25 18:35 | XMS_ITS | Patient Health Record ---
Author Organization [facility] Address [address] [place], [place] [address] Care Team Providers Care Tax Assistant Name Role Phone Rafi Ying Unavailable [phone] , Unavailable Unavailable Allergies Allergen (clinical drug ingredient) Drug/Non Drug Allergy documented on EMR Reaction Allergy Type Onset Date Status amitriptyline Amitriptyline hallucinate Drug Allergy Active Shellfish (FN) Shellfish-derived Products swelling and shortof breath Drug Allergy Active Reason For Referral No Information Medications Medication SIG (Take, Route, Fr equency, Duration) Notes Start Date End Date Status Levothyroxine Sodium Active Atorvastatin Calcium Active Ozempic Active Aspirin 81 Active Cetirizine HCl Activ e BuPROPion HBr Active Gabapentin 800 MG 1 tablet Orally Once a day prn Active Problems Problem Type SNOMED Code ICD Code Onset Dates Problem Status W/U Status Risk Notes Problem Essential tremor (989311024) Essential tremor (G25.0) Active confirmed She has a primarily action tremor of the right greater than left hand and the features suggest a benign essential tremor to me. There is nothing on examination to suggest any Parkinson's disease at this time, with no bradykinesia, normal tone, no cogwheel rigidity, and no masked facies, although she does have some mild nonspecific postural instability. I recommended she discontinue caffeine use and she has a couple cups of coffee in the morning and see if this gives her any improvement and with the stress and anxiety of all these problems she is going through there could be some anxiety and increased adrenaline which can certainly aggravate this tremor as well. Problem Cervicalgia (45273114) Cervicalgia (M54.2) Active confirmed Chronic neck pain with a history of multiple cervical spine surgeries. I personally reviewed the CD-ROM of the MRI images which show some mild chronic degenerative disc disease with a previous fusion but does not 20 spinal stenosis of significance and does not show any signal change within the cord I think this is just residual from her previous cervical spine problems. I do not find any myelopathy on examination or cervical radiculopathy on examination and she is following with her pain physician Dr. Rico Montalvo Problem Cognitive function finding (698875303) Unspecified symptoms and signs involving cognitive functions and awareness (R41.9) Active confirmed Nonspecific fatigue. If not previously done we will check B12, methylmalonic acid level, thyroid functions, sedimentation rate, in the light of the somewhat butterfly appearing blush on the cheeks we will check a antinuclear antibody as well on that she has had this done before. She does not have her blood work with surgeon she can see if she is already had any of these test and what ever has not been done she can have drawn and if she find any old results she can just send me copies of them., Problem Fatigue (98691884) Other fatigue (R53.83) Active confirmed Nonspecific fatigue. Although she has had COVID on 5 occasions none of these started immediately after any of the COVID pulse. There may have been some other nonspecific viral syndrome that could have been postviral fatigue. Will check a thyroid functions B12 VIOLA and sedimentation rate. Problem Syncope and collapse (532747020) Syncope and collapse (R55) Active confirmed Nonspecific brief episodes of fatigue with no postictal spell, no bladder or bowel incontinence, no tongue biting, no tonic or clonic activity but she just passes out briefly for a few seconds and it always happens when she stands up suggesting possible orthostatic hypotension but she is not orthostatic at this time and I asked them to check her blood pressure lying and standing every morning and every evening and they have a monitor at home they can make a chart of this to review to see if there is any drop when she stands up. The question of postural orthostatic tachycardia syndrome was previously raised by other physicians but she had a normal tilt table arguing against this and she has no increase in pulse on orthostatic blood pressures taken by me today. I would suggest that she see somebody for dysautonomia and they are not many people with specialize in that and they have the number for Dr. Ayala to make an appointment but unfortunately he tends to be booked up a year and advanced and they have seen in the [facility] specialist in [place] who is evaluating. We also check an EEG to rule out any ictal etiology but it does not sound like seizures to me. Problem Low back pain (569685691) Low back pain, unspecified (M54.50) Active confirmed Chronic low back pain with a history of arachnoiditis being managed with a spinal stimulator and Dr. Rico Montalvo in pain clinic. Plan Of Treatment Pending Test Test Name Order Date Electroencephalography (EEG) 06/15/2023 TSH 06/15/2023 Sedimentation Rate-Westergren 06/15/2023 VIOLA COMPREHENSIVE 06/15/2023 FREE T4 06/15/2023 VITAMIN B12/FOLATE - (B12FOL) 06/15/2023 Insurance Providers Payer Name Payer Address Payer Phone Subscriber Number Group Number Insured Name Patient Relationship to Insured Coverage Start Date Coverage End Date [employer] [facility] [address] [place] [phone] [id number] DESI GARCIA Self - patient is the insured Medical (General) History Medical History History ICD Code 2 cervical spine surgeries with a fusion 12 lumbar spine surgeries and 4 lumbar f usions Spinal stimulator in low back arachnoiditis in lumbar spine Diabetes Hyperlipidemia Hypothyroidism knee replacement (5 knee surgeries) 2 rotator cuff surgeries
--- OUTSIDE RECORDS SUMMARY | 2025-01-25 18:36 | XMS_ITS | Clinical Summary ---
Author Organization [facility] Address [address] [place] [address] Care Team Providers Care Procurement Engineer Name Role Phone Dian Montalvo MD Unavailable Dorys Paredes MD Primary Care Provider [phone] See Malone MD Unavailable [phone] Sandra Tabares MD Unavailable [phone] Miscellaneous, Not In File Unavailable Unava ilable Damir Gray MD Unavailable Allergies Active Allergy Reactions Criticality Noted Date Comments Amitriptyline Hallucinations Medium 10/22/2022 Metformin Diarrhea Low 10/28/2022 Shellfish Swelling Medium 08/10/2014 Swelling Medications meloxicam (MOBIC) 15 mg tablet Take 1 tablet (15 mg total) by mouth daily 3 Active cetirizine (ZyrTEC) 10 mg tablet Take 1 tablet (10 mg total) by mouth nightly Active gabapentin (NEURONTIN) 800 mg tablet Take 1 tablet (800 mg total) by mouth daily as needed Active buPROPion XL (WELLBUTRIN XL) 150 mg 24 hr tablet 4 Active midodrine (PROAMATINE) 5 mg tablet TAKE 1 TABLET BY MOUTH THREE TIMES DAILY BEFORE MEALS Active dexAMETHasone (DECADRON) 4 mg/mL injection USE 1 ML PER ONTOPHORESIS SESSION 4 Active rosuvastatin (CRESTOR) 20 mg tablet TAKE 1 TABLET BY MOUTH EVERY NIGHT AT BEDTIME. REPLACES ATORVASTATIN 4 Active venlafaxine XR (EFFEXOR-XR) 150 mg 24 hr capsule Take 1 capsule (150 mg total) by mouth Active hydroxychloroqu ine (PLAQUENIL) 200 mg tablet Take 1 tablet (200 mg total) by mouth Active levothyroxine (SYNTHROID) 125 mcg tablet TAKE 1 TABLET(125 MCG) BY MOUTH DAILY 30 tablet 5 5 Active linaGLIPtin (Tradjenta) 5 mg tabletIndicatio ns:type 2 diabetes mellitus Take 1 tablet (5 mg total) by mouth daily 30 tablet 11 5 Active metFORMIN (GLUCOPHAGE) 500 mg tabletIndicatio ns:Type 2 diabetes mellitus without complication, without long-term current use of insulin (HCC) TAKE 1 TABLET(500 MG) BY MOUTH TWICE DAILY WITH MEALS 60 tablet 2 5 Active Active Problems Problem Noted Date Diagnosed Date Hypothyroidism 08/21/2024 Chest pain 01/01/2023 Other chest pain 12/13/2022 Diastolic dysfunction 10/28/2022 Palpitations 10/28/2022 Tremor 10/28/2022 DEBBIE (generalized anxiety disorder) 10/28/2022 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 No acute worsening. -continue gabapentin and effexor Type 2 diabetes mellitus with hyperlipidemia Assessment & Plan (08/03/2023 6:02 PM STEAM SHOVEL OILER): Pt's diabetes is not optimally controlled, and she is having nearly intolerable symptoms on Ozempic. I recommend the following: - Obtain a Freestyle Ellis 3 for closer monitoring, ordered (ask about a coupon if it is not covered by insurance) - Stop Ozempic after the most recent supply runs out (and space out the injections to reduce constipation) - Trial of metformin starting with 500 mg every day, then if tolerated go to bid - Start Mounjaro, 5 mg, dose to be titrated for both efficacy and tolerance Assessment & Plan (10/25/2022 1:58 PM CDT): On ozempic. possibility this is causing symptoms with palpitations being a SE but not necessarily syncope. Dose recently increased 1 week ago. Diagnosis of exclusion. Time line doesn't necessarily fit. 10/22 A1c 7.2 -hold ozempic and accuchecks w/ SSI -Patient with very well controlled blood sugars while admitted -Will hold Ozempic at discharge. Patient to monitor blood sugars at home. -Patient requests endocrine referral Episodic paroxysmal hemicrania, not intractable 10/23/2022 Assessment & Plan (10/24/2022 11:51 AM CDT): Experiencing headaches for about 3 months and tremor for 1 year. BO are R sided frontal, radiates to R eye and worship, has associated blurred vision, can last for hrs, has not vomited, not positional, ibuprofen and tylenol provide some relief. CTH negative. Also some memory loss/confusion with this. Unclear if all related or separate process. CRP and ESR wnl. Possibly migraine with aura. Less likely GCA. She has had multiple back and neck fusions ~12 starting 2010 and earlier, does not follow with spine as her surgeon retired; also R rotator cuff surgery x2, she has R UE and LE weakness which she attributes to nerve damage from the surgeries. Unsure if headaches and/or syncope are related to extensive neurosurgical history, would consider establishing with new surgeon/neurology and PCP as she may need further imaging. -symptomatic mgt with apap and toradol. -Resolved with Compazine and Reglan Syncope, unspecified syncope type 10/22/2022 Assessment & Plan (08/03/2023 5:59 PM STEAM SHOVEL OILER): I don't have records for the syncopal episodes, but according to the patient, cardiac work-up has been negative. Thyroid labs are OK. I will check for some of the less common syndromes that cause episodic symptoms, including carcinoid, pheo and mast cell release syndrome. See orders placed at this visit. Assessment & Plan (10/25/2022 1:57 PM CDT): Normal health until about 1 month ago. [...] today -Plan for 30 day event monitor Resolved Problems Problem Noted Date Diagnosed Date Resolved Date Anxiety and depression 10/23/202210/28 Assessment & Plan (10/23/2022 1:00 PM CDT): -continue home wellbutrin 300mg daily and effexor 225mg daily Surgical History Surgery Date Site/Laterality Comments TOTAL KNEE ARTHROPLASTY Left HYSTERECTOMY BACK SURGERY 4 fusions SPINAL CORD STIMULATOR IMPLANT Left x2 ROTATOR CUFF REPAIR Right 2 surgeries KNEE SURGERY Bilateral 2 surgeries on left knee, 3 surgeries on right knee CERVICAL SPINE SURGERY 3 fusions Medical History Medical History Date Comments Diabetes mellitus (HCC) Hyperlipidemia Thyroid disease Sleep difficulties Lack of concentration Colitis Failed back syndrome, lumbar Opioid dependence in remission (HCC) Covid Family History Medical History Relation Name Comments Diabetes Brother Diabetes Father Heart disease Father Diabetes Maternal Grandfather Diabetes Mother Heart disease Mother Thyroid disease Mother Arthritis Other Diabetes Paternal Grandfather Breast cancer Paternal Grandmother many o n her side had it too. Fibromyalgia Sister Thyroid disease Sister Relation Name Status Comments Brother Father Maternal Grandfather Mother Other Paternal Grandfather Paternal Grandmother Sister Social History Tobacco Use Types Packs/Day Years Used Date Smoking Tobacco: Never Smokeless Tobacco: Never Tobacco Cessation:Counseling Given: No AUDIT-C Answer Date Recorded Q1: How often do you have a drink containing alc ohol? Monthly or less 01/24/2024 Average Number of Drinks Not on file 024 Frequency of Binge Drinking Not on file 01/11 PHQ-2 Answer Date Recorded PHQ-2 Total Score (If total score is 3 or more points, staff should administer the PHQ-9) 3 10/28/2022 Personal Safety Answer Date Recorded Have you ever been in or are you currently in a harmful physical or emotional relationship or is someone making you feel afraid or unsafe? Denies 02/24/2023 Comments No Sex and Gender Information Value Date Recorded Sex Assigned at Not on file Legal Sex Female 7:23 PM STEAM SHOVEL OILER Gender Identity Not on file Sexual Orientation Not on file Obstetrics History Last Filed Vital Signs Vital Sign Reading Time Taken Comments Blood Pressure 135/79 10/08/2024 11:29 AM CDT Pulse 67 10/08/2024 11:29 AM CDT Temperature 36.8 C (98.2 F) 10/08/2024 11:29 AM CDT Respiratory Rate 16 02/25/2023 12:45 AM CDT Oxygen Saturation 98% 08/30/2023 1:49 PM CDT Inhaled Oxygen Concentration - - Weight 91.6 kg (202 lb) 10/08/2024 11:29 AM CDT Height 169.7 cm (5' 6.8) 10/08/2024 11:29 AM CD T Body Mass Index 31.83 10/08/2024 11:29 AM CDT Plan of Treatment Health Maintenance Due Date Last Done Comments Colon Cancer Screening-Colonoscopy 1960 Dilated Eye Exam 1960 Foot Exam 1960 DTaP/Tdap/Td Vaccine (1 - Tdap) 1971 Hepatitis B Screening 1978 Regular Well Visit/Exam 18-64 1978 Pneumococcal vaccine <65 (1 of 2 - PCV) 1979 Zoster Vaccine (1 of 2) 1979 Breast Cancer Screening-Mammogram 09/22/2016 016 Depression Screening 10/29/2023 10/28/2022 Influenza Vaccine (#1) 2025 Hemoglobin A1C 04/09/2025 10/08/2024, 01/12, 08/02/2023, Additional history exists Albumin Creatinine Ratio, Urine 10/08/2025 Lipid Panel 10/08/2025 10/08/2024, 10/22/2022 eGFR 10/08/2025 10/08/2024, 09/12, 02/24/2023, Additional history exists Hepatitis C Screening Completed 10/10/2023 Medical Devices Implanted Type Area Instructional Aide Device Identifier Shelf Expiration Date Model / Serial / Lot [employer] Reveal Linq Ii Implantable Data Scientist [id number] - [id number] - [id number] Implanted:Qty: 1 on 01/04/2023 by See Malone MD at [facility] Implantable Loop Recorder N/A: Sternal Boarder [employer] 03/20/2024 [id number] / [id number] / Procedures Procedure Name Priority Date/Time Associated Diagnosis Comments EGFR Routine 10/08/2024 12:34 PM CDT Type 2 diabetes mellitus with hyperlipidemia (HCC) LIPID PANEL Routine 10/08/2024 12:34 PM CDT Type 2 diabetes mellitus with hyperlipidemia (HCC) ALBUMIN CREATININE RATIO, URINE Routine 10/08/2024 12:34 PM CDT Type 2 diabetes mellitus with hyperlipidemia (HCC) POCT HEMOGLOBIN A1C Routine 10/08/2024 1 1:36 AM CDT Type 2 diabetes mellitus with hyperlipidemia (HCC) HEPATITIS C ANTIBODY Routine 10/10/2023 3:06 PM CDT from Last 3 Months or Most Recently Relevant to Health Maintenance Results * eGFR (10/08/2024 12:34 PM CDT) eGFR >90 >=60 mL/min/1. 73 m2 Comment: Interpretive Data Reference Interval Normal >/= 90 mL/min/1.73m2 Mildly decreased* 60 - 89 mL/min/1.73m2 Mildly to moderately decreased 45 - 59 mL/min/1.73m2 Moderately to severely decreased 30 - 44 mL/min/1.73m2 Severely decreased 15 - 29 mL/min/1.73m2 Kidney Failure < 15 mL/min/1.73m2 *Relative to young adult level Estimated glomerular filtration rate is determined by the 2020 CKD-EPI equation recommended by the National Kidney Foundation (A Unifying Approach to GFR Estimation: Recommendations of the NKF-ASK Task Force on Reassessing the Inclusion of Race in Diagnosing Kidney Disease, JASN 2020). The CKD-EPI equation should not be used for patients with unstable renal function and has not been validated in children and those over 70. Current interpretive data was last reviewed 2021. Blood 10/08/2024 12:3 4 PM CDT 10/08/2024 2:04 PM CDT Terra Leiva [facility] LAB BLOOD ORDERABLES Stephanie l Result Performing Organization Address [facility] de Phone Number [facility] [place] [address] * Albumin Creatinine Ratio, Urine (10/08/2024 12:34 PM CDT) Albumin Ur <12.0 mg/L Comment: Interpretive Data No reference range established. Current interpretive data was last revised 2018. Creatinine Ur 37.5 mg/dL [facility] Comment: Interpretive Data No reference range established. Current interpretive data was last revised 2018. Albumin Creatinine Ratio, Ur See Comment 1 - 29 mg/g [facility] Comment:Unable to calculate Urine 10/08/2024 12:3 4 PM CDT 10/08/2024 1:53 PM CDT Terra Leiva [facility] LAB URINE ORDERABLES Stephanie l Result Performing Organization Address [facility] Co de Phone Number [facility] [place] [address] * (ABNORMAL) Lipid panel (10/08/2024 12:34 PM CDT) Cholesterol 169 30 - 199 mg/dL Comment: Interpretive Data Ages < or = 19 years Acceptable: <170 mg/dL Borderline high: 170-199 mg/dL High: >or= 200 mg/dL Ages > or = 20 years Desirable: <200 mg/dL Borderline high: 200-239 mg/dL High: >or= 240 mg/dL Literature References: 1. Expert Panel on Integrated Guidelines for Cardiovascular Health and Risk Reduction in Children and Adolescents. Pediatrics 2011;128:S213 2. NCEP Expert Panel. Circulation 2004;110:227 Current Interpretive Data was last revised on 2018. Triglycerides 216(H) <=149 mg/dL [facility] Comment: Interpretive Data Ages < or = 9 years Acceptable: <75 mg/dL Borderline high: 75-99 mg/dL High: >or= 100 mg/dL Ages 10 to 20 years Acceptable: <90 mg/dL Borderline high: 90-129 mg/dL High: >or= 130 mg/dL Ages > or = 20 years Desirable: <150 mg/dL Borderline high: 150-199 mg/dL High: 200-499 mg/dL Very high: >or= 499 mg/dL Literature References: 1. Expert Panel on Integrated Guidelines for Cardiovascular Health and Risk Reduction in Children and Adolescents. Pediatrics 2011;128:S213 2. NCEP Expert Panel. Circulation 2004;110:227 Current Interpretive Data was last revised on 2018. HDL 57 >=40 mg/dL [facility] Comment: Interpretive Data Ages < or = 19 years Acceptable: >45 mg/dL Borderline low: 40-45 mg/dL Low: <40 mg/dL Ages > or = 20 years Desirable: >or= 60 mg/dL Low: <40 mg/dL Literature References: 1. Expert Panel on Integrated Guidelines for Cardiovascular Health and Risk Reduction in Children and Adolescents. Pediatrics 2011;128:S213 2. NCEP Expert Panel. Circulation 2004;110:227 Current Interpretive Data was last revised on 2018. LDL, calculated 76 <=129 mg/dL [facility] Comment: Interpretive Data Ages < or = 19 years Acceptable: <110 mg/dL Borderline high: 110-129 mg/dL High: >or= 130 mg/dL Ages > or = 20 years Optimal: <100 mg/dL Near optimal: 100-129 mg/dL Borderline high: 130-159 mg/dL High: >160 mg/dL Calculated using the Martinez LDL-C estimating equation. This equation was implemented on 2024. Prior to this date LDL-C was estimated using the Friedewald equation. Literature References: 1. Expert Panel on Integrated Guidelines for Cardiovascular Health and Risk Reduction in Children and Adolescents. Pediatrics 2011;128:S213 2. NCEP Expert Panel. Circulation 2004;110:227 3. Juan Martinez et al. LEONARDO Cardiol. 2019October 11;5(5):540-548. doi: 10.1001/jamacardio.2020.0013 Current Interpretive Data was last revised on 2024. Non-HDL Cholesterol 112 mg/dL [facility] Comment: Interpretive Data Ages < or = 19 years Acceptable: <120 mg/dL Borderline high: 120-144 mg/dL High: >145 mg/dL Ages > or = 20 years When triglycerides are >200 mg/dL, Non-HDL cholesterol is a secondary target of therapy with treatment goals that are 30 mg/dL greater than the LDL cholesterol target. Literature References: 1. Expert Panel on Integrated Guidelines for Cardiovascular Health and Risk Reduction in Children and Adolescents. Pediatrics 2011;128:S213 2. NCEP Expert Panel. Circulation 2004;110:227 Current Interpretive Data was last revised on 2018. Chol/HDL ratio 3 [facility] Blood 10/08/2024 12:3 4 PM CDT 10/08/2024 1:53 PM CDT Narrative [facility] - 10/08/2024 2:42 PM CDT These lab test should be done fasting. This means do not eat or drink for at least 12 hours prior to getting your blood drawn. Terra Leiva [employer] LAB BLOOD ORDERABLES Stephanie l Result [facility] Department [place] [address] * POCT hemoglobin A1c (10/08/2024 11:36 AM CDT) Hemoglobin A1C, POC 6.9 4.0 - 5.6 % Blood 10/08/2024 11:3 6 AM CDT us Terra Leiva NP POINT OF CARE TEST ORDERA BLES Final Result * Hepatitis C antibody Blood (10/10/2023 3:06 PM CDT) Hep C Ab Nonreactive Nonreactive Comment: Interpretive Data Nonreactive: Antibodies to HCV not detected. Does NOT exclude the possibility of recent exposure to HCV. Equivocal: Equivocal for HCV antibodies. Supplemental molecular testing will be automatically performed to determine infection status in accordance with current CDC screening recommendations. Reactive: Positive for HCV antibodies. This may represent current or past HCV infection. Supplemental molecular testing will be automatically performed to determine current infection status in accordance with current CDC screening recommendations. Interpretive data was last revised on 2019. Blood 10/10/2023 3:06 PM CDT 10/10/2023 6:14 PM CDT us Pati Ray MD LAB MICROBIOLOGY - GENERAL ORDER DANIELLE Final Result [facility] [address] Department [place] [address] from Last 3 Months or Most Recently Relevant to Health Maintenance Insurance [employer] MEDICARE HMO PPO MEDICARE OOS MEDICARE OOS Advance Directives For more information, please contact: [phone] * Full Code (Latest Code Status on File) Date Activated Date Inactivated Comments 01/01/2023 7:45 PM 01/05/2023 6:16 PM * Full Code Date Activated Date Inactivated Comments 10/22/2022 10:14 PM 10/25/2022 7:10 PM Care Teams Procurement Engineer Relationship Specialty Start [place] [address] [place] [address] PCP - General Internal Medicine 12/13/22 [place] [address] [place] [address] Consulting Physician Pain Management 10/28/22 See Malone MD [address] [facility] [address] [place] [address] Consulting Physician Cardiology 01/05/23 Sandra Tabares MD [address] [facility] [address] [place], [place] [id number] Referring Physician Neurology 01/05/23 Miscellaneous, Not In File 01/05/23 Damir Gray MD [address] [facility] [address] [address] [place] [address] Consulting Physician Neurology 01/05/23
--- OUTSIDE RECORDS SUMMARY | 2025-01-25 18:36 | XMS_ITS ---
Author Organization [facility] filomena Address [address] [facility] [address] [place] [address] Care Team Providers Care Residential Door Installer Name Role Phone Beka Wilson Primary Care Provider Unavailab Pati Martínez Unavailable [phone] REASON FOR VISIT follow-up Encounters Encounter Location Date Provider Diagnosis [facility] [address] [facility] [address] [place] [address] 10/22/2024 Pati Aj Plan Of Treatment Next Appt Details Provider Name:Pati Aj, 07/03 01:30:00 PM, [address] [facility] [address], [place], [address], Progress Notes * Danay DOVERDOB:[birth year] (64 yo F)Acc No.[id number]:10/22/2024 Progress Notes Patient: Danay JON Appointment Provider: Kieran AJ MD :1960 A ge:64 Y S ex:Female Date:10/22/2024 Address:[address] [place], [place] [id number] Pcp:Beka Wilson Subjective: * Chief Complaints: * 1 . Follow-up. * Medical History: Objective: * Vitals: Assessment: Plan: * Treatment: * Billing Information: * Visit Code: * Procedure Codes: * Electronic signature of Pati Aj MD on 01/25/2025 at 06:35 PM CDT Sign off status: Pending * Appointment Provider: Kieran AJ MD Date: 0 10/22/2024 Generated for Emily arizmendi/Karina/eTransmitting on: 0 01/25/2025 06:35 PM CDT
--- OUTSIDE RECORDS SUMMARY | 2025-01-25 18:36 | XMS_ITS | Continuity of Care Document ---
Author Organization [facility] Address [address] [place] [address] [address] [place] [address] Phone Care Team Providers Care Drill Bit Sharpener Name Role Phone Gonzalez OD, Shon Unavailable Unavailable Procedures Procedure Date Eye Exam & Treatment Refraction Fundus Photography W/ Report Advance Directives Directive Yes / No Effective Date File Name No Information Encounters Encounter Description Practice Location Reason(s) For Visit Diagnoses Date Provider Providers Copied on Encounter [facility], [address] [place] [address] [address], [place], [place], [id number], tel:[phone] [facility] No Information 6-200 7 Gonzalez OD Shon. Jacek [facility], [place], [place], [facility], . tel:[phone] Referring Provider: Jaeck Urias OD [facility], [place], [address]. tel:[phone] Family History Family Member Type Diagnosis Age [...]
--- OUTSIDE RECORDS SUMMARY | 2025-01-25 18:36 | XMS_ITS ---
Author Organization [facility] filomena Address [address] [facility] [address] [place] [address] Care Team Providers Care Respiratory Care Practitioner Name Role Phone Beka Wilson Primary Care Provider Unavailab Pati Martínez Unavailable [phone] REASON FOR VISIT follow up Encounters Encounter Location Date Provider Diagnosis [facility] [address] [facility] [facility] [address] [place] [address] 11/21/2024 Pati Aj Plan Of Treatment Next Appt Details Provider Name:Pati Aj, 07/03 01:30:00 PM, [address] [facility] [address], [place], [address], Progress Notes * Danay DOVERDOB:[birth year] (64 yo F)Acc No.[id number]:11/21/2024 Progress Notes Patient: Danay JON Appointment Provider: Kieran AJ MD :1960 A ge:64 Y S ex:Female Date:11/21/2024 Address:[address] [place], [place] [id number] Pcp:Beka Wilson Subjective: * Chief Complaints: * 1 . Follow up. * Medical History: Objective: * Vitals: Assessment: Plan: * Treatment: * Billing Information: * Visit Code: * Procedure Codes: * Electronic signature of Pati Aj MD on 01/25/2025 at 06:35 PM CDT Sign off status: Pending * Appointment Provider: Kieran AJ MD Date: 0 11/21/2024 Generated for Printi ng/Fanickig/eTransmitting on: 0 01/25/2025 06:35 PM CDT
--- NOTE | 2025-01-25 18:59 | ED.FEMALEGU ---
HPI - Female Genitourinary General Chief complaint: Urogenital-Female <Brody Berrios MD - Last Filed: 01/25/25 21:49> Stated complaint: uti <Brody Berrios MD - Last Filed: 01/25/25 21:49> Time Seen by Provider: 01/25/25 18:47 <Brody Berrios MD - Last Filed: 01/25/25 21:49> History of Present Illness HPI Narrative: This is a 64-year-old female with history of diabetes, hyperlipidemia who presents to the ED for dysuria, right flank pain for 1 month. Patient states she was initially diagnosed with a UTI several weeks ago, given bactrim with no improvement. She was switched to clinda but continued to have symptoms. She was seen at today where UA was obtained and was clear. Patient was sent here for further evaluation. Patient has had chills, denies fevers, chest pain, vomiting. <Brody Berrios MD - Last Filed: 01/25/25 21:49> Related Data Home medications: Home Medications ?Medication ?Instructions ?Recorded ?Confirmed ?Last Taken ?Type aspirin 81 mg tablet,delayed 81 mg PO DAILY 05/04/19 11/01/24 07/03/20 History release (Marjorie Low Dose Aspirin) black cohosh 540 mg capsule 540 mg PO DAILY 03/06/20 11/01/24 07/05/20 History gabapentin 800 mg tablet 800 mg PO TID PRN pain 09/09/22 11/01/24 Unknown History hydroxychloroquine 200 mg tablet 200 mg PO BID 11/01/24 11/01/24 Unknown History linagliptin 5 mg tablet (Tradjenta) 5 mg PO DAILY 11/01/24 11/01/24 Unknown History midodrine 5 mg tablet 5 mg PO TID 11/01/24 11/01/24 Unknown History propranolol 10 mg tablet 10 mg PO BID 11/01/24 11/01/24 Unknown History cariprazine 1.5 mg capsule 1.5 mg PO DAILY 12/07/24 Unknown History (Vraylar) bupropion HCl 150 mg 24 hr tablet, mg PO 01/25/25 Unknown History extended release ciprofloxacin HCl 500 mg tablet mg 01/25/25 Unknown History fluconazole 100 mg tablet mg 01/25/25 Unknown History <Brody Berrios MD - Last Filed: 01/25/25 21:49> Allergies/Adverse reactions: Allergies Allergy/AdvReac Type Severity Reaction Status Date / Time shellfish derived Allergy Unknown Anaphylaxis Verified 01/25/25 18:38 amitriptyline Allergy Hallucinati Verified 01/25/25 18:38 ons <Brody Berrios MD - Last Filed: 01/25/25 21:49> Review of Systems Review of Systems: Gen.: Chills. Denies fevers Eyes: Denies eye pain or visual change ENT: Denies congestion Respiratory: Denies shortness of breath or cough CV: Denies chest pain or palpitations GI: Nausea. Denies abdominal pain, emesis or diarrhea :Dysuria. Denies urgency, frequency or hematuria Musculoskeletal: Right flank pain. Denies back pain or muscle pain Neuro: Denies numbness, tingling, weakness or focal weakness Skin: Denies rash Except as documented, all other systems reviewed and negative <Brody Berrios MD - Last Filed: 01/25/25 21:49> [facility] Past Medical History Medical History: Medical History Anxiety GERD (gastroesophageal reflux disease) Chronic sinusitis Colitis Urinary incontinence Constipation Depression Headache, migraine HLD (hyperlipidemia) Recurrent UTI Spinal cord stimulator status Thyroid disease Hypokalemia Opioid abuse DM w/o complication type II, uncontrolled Chronic pain of left knee <Brody Berrios MD - Last Filed: 01/25/25 21:49> Surgical History Surgical History: Surgical History H/O cardiac catheterization S/P right rotator cuff repair 06/2020 History of back surgery x9 H/O: hysterectomy H/O right knee surgery H/O left knee surgery x2 H/O neck surgery <Brody Berrios MD - Last Filed: 01/25/25 21:49> Family History Family History: Family History Mother Diabetes mellitus Hypertension Family history of elevated blood lipids Father Diabetes mellitus Hypertension Family history of congenital heart disease Family history of kidney disease Other Asthma Depression Family history of arthritis Family history of chronic obstructive pulmonary disease Family history of hearing loss Family history of liver disease Family history of malignant neoplasm of breast in first degree relative Family history of mental disorder Family history of obesity <Brody Berrios MD - Last Filed: 01/25/25 21:49> Social History Social History: Social History Smoking status: Never smoker Second hand tobacco smoke exposure: No Alcohol intake: current Alcohol use details: TWO DRINKS PER MONTH Substance use: never Substance use type: does not use Living arrangements: with friend(s) Spiritual care concerns: No <Brody Berrios MD - Last Filed: 01/25/25 21:49> Exam Narrative: APPEARANCE: No acute distress, nontoxic, resting in bed EYES: EOMI HEENT: Normocephalic, atraumatic, OMM RESPIRATORY: No respiratory distress Clear to auscultation bilaterally with no rhonchi wheezing or rales. CARDIOVASCULAR: Regular rate and rhythm without murmurs rubs or gallops. ABDOMINAL: Soft, mild suprapubic ttp. CVA ttp on the right. MUSCULOSKELETAL: Moves all extremities. No clubbing, cyanosis or edema. NEURO: Awake and alert. Following commands, speech normal, no focal deficits SKIN:: Warm, dry. No rashes lesions or abrasions PSYCHIATRIC: Normal affect/mood, <Brody Berrios MD - Last Filed: 01/25/25 21:49> Course Course Emergency Course: Patient updated on CT findings. In agreement with plan of care <Loretta Caicedo PA-C - Last Filed: 01/25/25 22:02> Vital Signs Vital signs: Vital Signs Temperature 98.7 F 01/25/25 18:41 Pulse Rate 61 01/25/25 18:41 Respiratory Rate 20 01/25/25 18:41 Blood Pressure 144/62 H 01/25/25 18:41 Pulse Oximetry 99 01/25/25 18:41 Oxygen Delivery Room Air 01/25/25 18:41 Temperature 98.7 F 01/25/25 18:41 Pulse Rate 77 01/25/25 21:01 Respiratory Rate 20 01/25/25 21:01 Blood Pressure 128/51 L 01/25/25 21:01 Pulse Oximetry 97 01/25/25 21:01 Oxygen Delivery Room Air 01/25/25 18:41 <Brody Berrios MD - Last Filed: 01/25/25 21:49> Vital Signs Temperature 98.7 F 01/25/25 18:41 Pulse Rate 61 01/25/25 18:41 Respiratory Rate 20 01/25/25 18:41 Blood Pressure 144/62 H 01/25/25 18:41 Pulse Oximetry 99 01/25/25 18:41 Oxygen Delivery Room Air 01/25/25 18:41 Temperature 98.7 F 01/25/25 18:41 Pulse Rate 77 01/25/25 21:01 Respiratory Rate 20 01/25/25 21:01 Blood Pressure 128/51 L 01/25/25 21:01 Pulse Oximetry 97 01/25/25 21:01 Oxygen Delivery Room Air 01/25/25 18:41 <Loretta Caicedo PA-C - Last Filed: 01/25/25 22:02> MDM - Female Genitourinary MDM Narrative Medical decision making narrative: 64 yo male presents for body aches, right flank pain, and dysuria. Patient seen at earlier today for persistent UTI symptoms despite prior treatments with bactrim and clindamycin. UA there was clear but she continued to have symptoms prompting her to be sent here for further evaluation. UA repeated for urine culture, showed no evidence of infection. CBC and CMP were without significant abnormalities. CT abd/pelvis on wet read showed bladder distension, PVR performed and <100cc. <Brody Berrios MD - Last Filed: 01/25/25 21:49> Differential Diagnosis Differential diagnosis: Likely urinary tract infection and other (ureterolithiasis, cancer, constipation, obstruction) <Brody Berrios MD - Last Filed: 01/25/25 21:49> Lab Data Result diagrams: 01/25/25 19:15 01/25/25 19:15 <Brody Berrios MD - Last Filed: 01/25/25 21:49> Labs: Lab Results 01/25/25 Range/Units 19:15 WBC 7.7 (4.5-10.0) K/mm3 RBC 4.50 (4.2-5.4) M/mm3 Hgb 12.1 (12.0-15.0) g/dL Hct 36.8 L (37.0-47.0) % MCV 81.8 (80-100) fl MCH 26.9 (26-34) pg MCHC 32.9 (32-36) g/dl RDW 13.4 (11.5-14.5) % Plt Count 325 (150-375) k/mm3 MPV 9.4 (7.4-10.4) fl Immature Gran % (Auto) 0.3 (0-0.5) % Neut % (Auto) 50.4 (45.5-73.1) % Lymph % (Auto) 38.6 (18.3-44.2) % [place] % (Auto) 8.0 (2.6-8.5) % Eos % (Auto) 2.0 (0-4.4) % Baso % (Auto) 0.7 (0.2-1.2) % Lymph # (Auto) 2.96 (0.9-3.2) K/mm3 [place] # (Auto) 0.6 (0.1-0.6) K/mm3 Eos # (Auto) 0.2 (0-0.3) K/mm3 Baso # (Auto) 0.1 (0.0-0.1) K/mm3 Abs Immat Gran (auto) 0.02 (0.00-0.031) K/mm3 Absolute Neuts (auto) 3.9 (1.3-6.7) K/mm3 Absolute Nucleated RBC 0.000 (0.0-0.012) K/mm3 Nucleated RBC % 0.0 (0.0-0.2) % Sodium 135 L (137-145) mmol/L Potassium 4.1 (3.4-5.0) mmol/L Chloride 100 (98-107) mmol/L Carbon Dioxide 23 (22-30) mmol/L Anion Gap 12 (4-12) mmol/L BUN 23 H D (7-17) mg/dL Creatinine 0.96 (0.7-1.0) mg/dL Estim Creat Clear Calc 61 ml/min Estimated GFR 59 (59 - ) Glucose 135 H (65-110) mg/dL Calcium 9.5 (8.4-10.2) mg/dL Total Bilirubin 0.4 (0.2-1.3) mg/dL AST 32 (14-36) U/L ALT 27 (6-35) U/L Alkaline Phosphatase 85 (38-126) U/L Total Protein 7.7 (6.3-8.2) g/dL Albumin 4.5 (3.5-5.1) g/dL Urine Color Yellow (Yellow) Urine Appearance Clear (Clear) Urine pH 6.5 (5.0-9.0) Ur Specific [place] 1.004 (1.001-1.035) Urine Protein Negative (Negative) mg/dL Urine Glucose (UA) Negative (Negative) mg/dL Urine Ketones Negative (Negative) mg/dL Ur Blood (Man) Negative (Negative) Urine Nitrate Negative (Negative) Urine Bilirubin Negative (Negative) Urine Urobilinogen 0.2 (<2.0) mg/dL Leukocyte Esterase Rfl Negative (Negative) JORGE A/UL <Brody MD Yash - Last Filed: 01/25/25 21:49> Lab Results 01/25/25 Range/Units 19:15 WBC 7.7 (4.5-10.0) K/mm3 RBC 4.50 (4.2-5.4) M/mm3 Hgb 12.1 (12.0-15.0) g/dL Hct 36.8 L (37.0-47.0) % MCV 81.8 (80-100) fl MCH 26.9 (26-34) pg MCHC 32.9 (32-36) g/dl RDW 13.4 (11.5-14.5) % Plt Count 325 (150-375) k/mm3 MPV 9.4 (7.4-10.4) fl Immature Gran % (Auto) 0.3 (0-0.5) % Neut % (Auto) 50.4 (45.5-73.1) % Lymph % (Auto) 38.6 (18.3-44.2) % [place] % (Auto) 8.0 (2.6-8.5) % Eos % (Auto) 2.0 (0-4.4) % Baso % (Auto) 0.7 (0.2-1.2) % Lymph # (Auto) 2.96 (0.9-3.2) K/mm3 [place] # (Auto) 0.6 (0.1-0.6) K/mm3 Eos # (Auto) 0.2 (0-0.3) K/mm3 Baso # (Auto) 0.1 (0.0-0.1) K/mm3 Abs Immat Gran (auto) 0.02 (0.00-0.031) K/mm3 Absolute Neuts (auto) 3.9 (1.3-6.7) K/mm3 Absolute Nucleated RBC 0.000 (0.0-0.012) K/mm3 Nucleated RBC % 0.0 (0.0-0.2) % Sodium 135 L (137-145) mmol/L Potassium 4.1 (3.4-5.0) mmol/L Chloride 100 (98-107) mmol/L Carbon Dioxide 23 (22-30) mmol/L Anion Gap 12 (4-12) mmol/L BUN 23 H D (7-17) mg/dL Creatinine 0.96 (0.7-1.0) mg/dL Estim Creat Clear Calc 61 ml/min Estimated GFR 59 (59 - ) Glucose 135 H (65-110) mg/dL Calcium 9.5 (8.4-10.2) mg/dL Total Bilirubin 0.4 (0.2-1.3) mg/dL AST 32 (14-36) U/L ALT 27 (6-35) U/L Alkaline Phosphatase 85 (38-126) U/L Total Protein 7.7 (6.3-8.2) g/dL Albumin 4.5 (3.5-5.1) g/dL Urine Color Yellow (Yellow) Urine Appearance Clear (Clear) Urine pH 6.5 (5.0-9.0) Ur Specific [place] 1.004 (1.001-1.035) Urine Protein Negative (Negative) mg/dL Urine Glucose (UA) Negative (Negative) mg/dL Urine Ketones Negative (Negative) mg/dL Ur Blood (Man) Negative (Negative) Urine Nitrate Negative (Negative) Urine Bilirubin Negative (Negative) Urine Urobilinogen 0.2 (<2.0) mg/dL Leukocyte Esterase Rfl Negative (Negative) JORGE A/UL <Loretta Caicedo PA-C - Last Filed: 01/25/25 22:02> Imaging Data Radiologist's impression: ITS Impressions Abdomen/Pelvis CT 01/25/25 21:26 IMPRESSION: No obstructive uropathy. Significant bladder distention leading to bilateral hydroureteronephrosis without evidence of obstruction. No cross-sectional imaging evidence to suggest the presence of pyelonephritis or ureterolithiasis. Please correlate these findings to the patient's urinalysis for complete evaluation. <Loretta Caicedo PA-C - Last Filed: 01/25/25 22:02> Critical Care Time Critical Care Time Critical Care Time: No <Loretta Caicedo PA-C - Last Filed: 01/25/25 22:02> Discharge Plan Discharge Clinical Impression: Hydroureter <Brody Berrios MD - Last Filed: 01/25/25 21:49> Patient Disposition: Home <Brody Berrios MD - Last Filed: 01/25/25 21:49> Condition: Stable <Brody Berrios MD - Last Filed: 01/25/25 21:49> Instructions: Hydronephrosis (ED) <Brody Berrios MD - Last Filed: 01/25/25 21:49> Additional Instructions: Return to the ER if you experience fever, abdominal pain with nausea and vomiting, you are unable to keep down liquids or solids, blood in the urine or any other symptoms that are concerning to you Remain well hydrated. Finish antibiotic as prescribed Follow up with urology <Brody Berrios MD - Last Filed: 01/25/25 21:49> Patient Language: Serbian <Brody Berrios MD - Last Filed: 01/25/25 21:49> Prescriptions: No Action bupropion HCl 150 mg tablet extended release 24 hr PO ciprofloxacin HCl 500 mg tablet fluconazole 100 mg tablet black cohosh 540 mg capsule 540 mg PO DAILY gabapentin 800 mg tablet 800 mg PO TID PRN (Reason: pain) Tradjenta 5 mg tablet 5 mg PO DAILY midodrine 5 mg tablet 5 mg PO TID propranolol 10 mg tablet 10 mg PO BID hydroxychloroquine 200 mg tablet 200 mg PO BID aspirin [Marjorie Low Dose Aspirin] 81 mg tablet,delayed release (DR/EC) 81 mg PO DAILY (DME) OneTouch Verio test strips Strip See Rx Instructions .Route Qty: 100 4RF Rx Instructions: Use to test blood sugar three times a day venlafaxine 150 mg capsule,extended release 24hr See Rx Instructions .ROUTE .COMPLEX Qty: 90 1RF Dose Instruction: TAKE 1 CAPSULE BY MOUTH DAILY Rx Instructions: TAKE 1 CAPSULE BY MOUTH DAILY levothyroxine 125 mcg tablet See Rx Instructions .ROUTE .COMPLEX Qty: 90 0RF Dose Instruction: TAKE 1 TABLET BY MOUTH DAILY Rx Instructions: TAKE 1 TABLET BY MOUTH DAILY. due for an appointment last refill until seen. rosuvastatin 20 mg tablet 20 mg PO DAILY Qty: 90 0RF Vraylar 1.5 mg capsule 1.5 mg PO DAILY metformin 500 mg tablet 500 mg PO BID Qty: 180 1RF Linzess 72 mcg capsule 72 mcg PO DAILY Qty: 90 1RF Trulicity 0.75 mg/0.5 mL pen injector 0.75 mg subcut WEEKLY Qty: 2 5RF <Brody Berrios MD - Last Filed: 01/25/25 21:49> Follow-up/Referrals: Herberth Gillette MD [Physician] - Chelsie Rivas NP [Primary Care Provider] - <Brody Berrios MD - Last Filed: 01/25/25 21:49>
--- OUTSIDE RECORDS SUMMARY | 2025-01-25 19:05 | XMS_ITS | Clinical Summary ---
Author Organization [facility] Address [address] [place] [address] Care Team Providers Care Changeover Operator Name Role Phone Unknown, Provider Primary Care Provider Unavaila ble Source Comments [facility],non-owned Affiliates and Associated Physician Practices is amultiple site organization consisting of ambulatory clinics and hospital sitesin [place], [place], [place] and [place]. This disclosure is being madepursuant to the Care Everywhere program and may not contain all information available regarding this patient. Last updated 18.[facility] [employer] Allergies Active Allergy Reactions Criticality Noted Date [...] Description 12/25/2024 2:00 PM CDT Office Visit [facility] [address] [id number] Sandra Tabares MD Syncope and collapse (Primary [...] Sex Assigned at Female 05/10/2023 11:12 PM VACUUM FRAME OPERATOR Legal Sex Female 11:44 AM CDT Gender Identity Female 05/10/2023 11:12 PM VACUUM FRAME OPERATOR Sexual Orientation Straight 05/10/2023 11 :12 PM VACUUM FRAME OPERATOR Occupation Industry Job Start Date Job End Date Disability/[employer] Not on file Not on file Not [...] Description 12/26/2025 1:00 PM CDT Office Visit [facility] [address] [place], [place] [id number] Nadege Obrien, STREET LIGHT WIRER-PHYSICAL GEOGRAPHER [address] [place] [address] Health Maintenance Due Date Last Done Comments [...] if suspicious findings are present clinically. An [employer] Certified Facility. [facility] Breast Centers utilize [employer] as a reminder system to notify patients of their next recommended mammograms. Edited by Trudi Nixon on 09/25/2015 9:[address] LIGHT WIRER-PHYSICAL GEOGRAPHER MAMMO ORDERABLES Fin al Result from Last 3 Months or Most Recently Relevant to Health Maintenance Insurance ANTHEM ANTHEM Care Teams Changeover Operator Relationship Specialty Start Date End Date Unknown, Provider PCP - General 12/25/24
--- OUTSIDE RECORDS SUMMARY | 2025-01-25 19:05 | XMS_ITS | Clinical Summary ---
Author Organization [facility] Address [address] [place] [address] Care Team Providers Care Clinical Asst Name Role Phone Dian Montalvo MD Unavailable Dorys Paredes MD Primary Care Provider [phone] See Malone MD Unavailable [phone] Sandra Tabares MD Unavailable [phone] Miscellaneous, Not In File Unavailable Unava ilable Damir Gray MD Unavailable [phone] Allergies Active Allergy Reactions Criticality Noted Date [...] hyperlipidemia Assessment & Plan (08/03/2023 6:02 PM CUSTOMER SUCCESS REPRESENTATIVE): Pt's diabetes is not optimally controlled, and [...] sided frontal, radiates to R eye and judaism, has associated blurred vision, can last for [...] 10/22/2022 Assessment & Plan (08/03/2023 5:59 PM CUSTOMER SUCCESS REPRESENTATIVE): I don't have records for the syncopal [...] on file Legal Sex Female 7:23 PM CUSTOMER SUCCESS REPRESENTATIVE Gender Identity Not on file Sexual Orientation [...] Completed 10/10/2023 Medical Devices Implanted Type Area Insurance Billing Specialist Device Identifier Shelf Expiration Date Model / Serial / Lot [employer] Reveal Linq Ii Implantable [facility] [employer] [facility] Manager [id number] - [id number] - [id number] Implanted:Qty: 1 on 01/04/2023 by See Malone MD at [facility] Implantable Loop Recorder N/A: Sternal Boarder [employer] 03/20/2024 [id number] / [id number] / Procedures Procedure Name Priority Date/Time [...] CDT 10/08/2024 2:04 PM CDT Terra Leiva EPIC MANAGER LAB BLOOD ORDERABLES Stephanie l Result Performing Organization Address [facility] de Phone Number [facility] Department [place] [employer] [place] [address] * Albumin Creatinine Ratio, Urine (10/08/2024 12:34 PM CDT) Albumin Ur <12.0 mg/L Comment: Interpretive Data No reference range established. Current interpretive data was last revised 2018. Creatinine Ur 37.5 mg/dL [facility] Comment: Interpretive Data No reference range established. Current interpretive data was last revised 2018. Albumin Creatinine Ratio, Ur See Comment 1 - 29 mg/g [facility] Comment:Unable to calculate Urine 10/08/2024 12:3 4 PM CDT 10/08/2024 1:53 PM CDT Terra Leiva EPIC MANAGER LAB URINE ORDERABLES Stephanie l Result Performing Organization Address [facility] Co de Phone Number [facility] [place] [address] * (ABNORMAL) Lipid panel (10/08/2024 12:34 PM [...] revised on 2018. Triglycerides 216(H) <=149 mg/dL [facility] Comment: Interpretive Data Ages < or = [...] revised on 2018. HDL 57 >=40 mg/dL [facility] Comment: Interpretive Data Ages < or = [...] 2018. LDL, calculated 76 <=129 mg/dL [facility] Comment: Interpretive Data Ages < or = [...] revised on 2024. Non-HDL Cholesterol 112 mg/dL [facility] Comment: Interpretive Data Ages < or = [...] last revised on 2018. Chol/HDL ratio 3 [facility] Blood 10/08/2024 12:3 4 PM CDT 10/08/2024 1:53 PM CDT Narrative [facility] - 10/08/2024 2:42 PM CDT These lab test should be done fasting. This means do not eat or drink for at least 12 hours prior to getting your blood drawn. Terra Leiva EPIC MANAGER LAB BLOOD ORDERABLES Stephanie l Result [facility] Department [place] [address] * POCT hemoglobin A1c (10/08/2024 11:36 AM [...] - GENERAL ORDER DANIELLE Final Result [facility] [address] [place] [address] from Last 3 Months or Most Recently Relevant to Health Maintenance Insurance ANTHEM MEDICARE HMO PPO MEDICARE OOS MEDICARE OOS Advance Directives For more information, please contact: [phone] * Full Code (Latest Code Status on File) Date Activated Date Inactivated Comments 01/01/2023 7:45 PM 01/05/2023 6:16 PM * Full Code Date Activated Date Inactivated Comments 10/22/2022 10:14 PM 10/25/2022 7:10 PM Care Teams Clinical Asst Relationship Specialty Start [place] [address] [place] [address] PCP - General Internal Medicine 12/13/22 [place] [address] [place] [address] Consulting Physician Pain Management 10/28/22 See Malone MD [address] [facility] [address] [place] [address] Consulting Physician Cardiology 01/05/23 Sandra Tabares MD [address] [facility] [address] [place], [place] [id number] Referring Physician Neurology 01/05/23 Miscellaneous, Not In File 01/05/23 Damir Gray MD [address] [place] [address] Consulting Physician Neurology 01/05/23
--- OUTSIDE RECORDS SUMMARY | 2025-01-25 19:05 | XMS_ITS | Continuity of Care Document ---
Author Organization [facility] Address [address] [place] [address] [address] [place] [address] Phone Care Team Providers Care House Servant Name Role Phone Gonzalez OD, Shon Unavailable Unavailable Procedures Procedure Date Eye Exam & Treatment Refraction Fundus Photography W/ Report Advance Directives Directive Yes / No Effective Date File Name No Information Encounters Encounter Description Practice Location Reason(s) For Visit Diagnoses Date Provider Providers Copied on Encounter [facility], [address] [place] [address] [address], [place], [place], [id number], tel:[phone] [facility] No Information 6-200 7 Gonzalez OD Shon. [facility] Jed Alexander [facility], [place], [place], [facility], . tel:[phone] Referring Provider: Jacek Urias OD [facility] Veronika Adkins [facility], [place], [address]. tel:[phone] Family History Family Member Type Diagnosis Age At Onset No Information Payers Payer name Insurance type Covered constitution party ID Authoriza tion(s) No Information Social [...]
--- OUTSIDE RECORDS SUMMARY | 2025-01-25 19:05 | XMS_ITS | Clinical Summary ---
Author Organization [facility] [address] Address [address] 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 No JS restrictions. Pt must have remote to turn into MRI mode or off ONLY 30 mins of scan time, no coil restrictions-ana maría 02/11/23 Loop Recorder Insurance BCBS MEDICARE Care Teams Agricultural Research Engineer Relationship Specialty Start Date End Date Beka Wilson DO [address] [facility] [address] [place] [id number] PCP - General Internal Medicine 06/16/17
--- OUTSIDE RECORDS SUMMARY | 2025-01-25 19:05 | XMS_ITS | Continuity of Care Document ---
Author Organization [facility] Address [address] [place] [address] Phone Care Team Providers Care Wardrobe Attendant Name Role Phone Parish THOMAS, Liliana Unavailable [...] Diagnoses Date Provider Providers Copied on Encounter Bubbly, [address], [place], [place], [address], tel:[phone] [facility] No Information Parish Ford. [id number] [place] [address], [address], [place], [place], [address] . tel: [phone] Bubbly, [address], [place], [place], [address], tel:[phone] [facility] No Information Roger Ireland. [address] [place] [address], [address], [place], [place], [address] , [place]. tel: [phone] Bubbly, [address], [place], [place], [address], tel:[phone] [facility] MUSCLE WEAKNESS-GENERAL 6 Roger Ireland. [address] [place] [address], [address], [place], [place], [address] , . tel: [phone] Bubbly, [address], [place], [place], [address], [place] tel:[phone] [facility] NE MALAISE AND FATIGUE NECHEADACHE 6 Roger Ireland. [address] [place] [address], [address], [place], [place], [address] , [place]. tel: [phone] [facility], [address], [place], [place], [address], [place] tel:[phone] [facility] NE OTHER ALTER CONSCIOUSNES 6 Roger Ireland. [address] [place] [address], [address], [place], [place], [address] , [place]. tel: [phone] [facility], [address], [place], [place], [address], [place] tel:[phone] [facility] CHR INTERSTIT CYSTITIS 6 Roger Ireland. [address] [place] [address], [address], [place], [place], [address] , [place]. tel: [phone] [facility], [address] [facility], [place], [place], [address], [place] tel:[phone] [facility] NE No Information 6 Roger Ireland. [address] [place] [address], [address], [place], [place], [address] , [place]. 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 [address] [facility], [place], [place], [address] , [place]. tel: [phone] [facility], [address], [place], [place], [address], [place] tel:[phone] [facility] ABDMNAL PAIN UNSPCF SITE [address]cker. [address] [place] [address], [address], [place], [place], [address] , [place]. tel: [phone] [facility], [address], [place], [place], [address], [place] tel:[phone] [facility] NAUSEA ALONESYMPT FEM CLIMACT STATEDIARRHEA 5 Roger Ireland. [address] [facility], [address], [place], [place], [address] , [place]. tel: [phone] [facility], [address], [place], [place], [address], [place] tel:[phone] [facility] NE ABDMNAL PAIN GENERALIZED 5 Roger Ireland. [address] [facility], [address], [place], [place], [address] , [place]. tel: [phone] [facility], [address], [place], [place], [address], [place] tel:[phone] [facility] BACKACHE NOSEPISODIC MOOD DISORD NEC 200 5 Mallory Decker. [address] , [address], [place], [place], [address] , . tel: [phone] [facility], [address], [place], [place], [address], [place] tel:[phone] [facility] URIN TRACT INFECTION NOS May-0 4 Runnellslesley Decker. [address] , [address], [place], [place], [address] , [place]. tel: [phone] [facility], [address], [place], [place], [address], [place] tel:[phone] [facility] PYELONEPHRITIS NOSHEMATURIA 4 Runnellslesley Decker. [address] , [address], [place], [place], [address] , [place]. tel: [phone] [facility], [address], [place], [place], [address], [place] tel:[phone] [facility] ABDMNAL PAIN RT LWR QUAD 4 Roger Ireland. [address] [facility], [address], [place], [place], [address] , . tel: [phone] [facility], [address], [place], [place], [address], tel:[phone] [facility] HYPOGLYCEMIA NOS Javed- 4 Roger Ireland. [address] [place] [address], [address], [place], [place], [address] , . tel: [phone] [facility], [address], [place], [place], [address], tel:[phone] [facility] URINARY FREQUENCY Mar-0 200 3 Roger Ireland. [address] [place] [address], [address], [place], [place], [address] , . tel: [phone] Family History Family Member Type Diagnosis Age [...]
[2025-01-25 19:23] LABS: Hematocrit 36.8 % (37.0-47.0); Hemoglobin 12.1 g/dL (12.0-15.0); Immature Granulocyte Percent A 0.3 % (0-0.5); Lymphocytes Absolute Auto 2.96 K/mm3 (0.9-3.2); Mean Corpuscular HGB Conc 32.9 g/dl (32-36); Mean Corpuscular Hemoglobin 26.9 pg (26-34); Mean Corpuscular Volume 81.8 fl (80-100); Nucleated Red Blood Cells Absolute Auto 0.000 K/mm3 (0.0-0.012); Nucleated Red Blood Cells Perc 0.0 % (0.0-0.2); Platelet Count Result 325 k/mm3 (150-375); Red Blood Count 4.50 M/mm3 (4.2-5.4); White Blood Count 7.7 K/mm3 (4.5-10.0)
[2025-01-25 19:25] LABS: Add Urine Microscopic? NO; Appearance Urine Clear (Clear); Glucose Urine UA Negative (Negative); Leukocyte Esterase Ur Negative LEU/UL (Negative); Nitrate Urine Negative (Negative); Specific Grav Ur 1.004 (1.001-1.035)
[2025-01-25 19:34] LABS: Alanine Aminotransferase 27 U/L (6-35); Albumin Level 4.5 g/dL (3.5-5.1); Alkaline Phosphatase 85 U/L (38-126); Anion Gap 12 mmol/L (4-12); Aspartate Amino Transferase 32 U/L (14-36); Bilirubin,Total 0.4 mg/dL (0.2-1.3); Blood Urea Nitrogen 23 mg/dL (7-17); Calcium 9.5 mg/dL (8.4-10.2); Carbon Dioxide 23 mmol/L (22-30); Chloride 100 mmol/L (98-107); Estimated CRCL calculation 61 ml/min; Estimated Glomerular Filt Rate 59; Glucose 135 mg/dL (65-110); Potassium 4.1 mmol/L (3.4-5.0); Sodium 135 mmol/L (137-145); Total Protein 7.7 g/dL (6.3-8.2)
[2025-01-25] MEDS: SODIUM CHLORIDE 0.9% IV 1,000 ML 999 ML IV CONT (20:07)
[2025-01-25] MEDS: KETOROLAC 30 MG/ML VIAL (*BKC) IV PUSH (20:10)
--- NOTE | 2025-01-25 20:38 | PC.NURSE ---
95mls post void, ERP Dr Berrios aware.
--- NOTE | 2025-01-25 21:04 | PC.NURSE ---
Pt refused morphine at this time.
== END 2025-01-25 22:37 | disposition home or self-care (01) ==
PROVIDERS: Emergency Provider Student in an Organized Health Care Education/Training Program; PCP Nurse Practitioner
DX: N13.4 Hydroureter (principal); E11.9 Type 2 diabetes mellitus without complications; E78.5 Hyperlipidemia, unspecified; E07.9 Disorder of thyroid, unspecified; J32.9 Chronic sinusitis, unspecified; K21.9 Gastro-esophageal reflux disease without esophagitis; F32.A Depression, unspecified; F41.9 Anxiety disorder, unspecified; Z96.82 Presence of neurostimulator; Z87.440 Personal history of urinary (tract) infections; Z90.710 Acquired absence of both cervix and uterus; Z79.82 Long term (current) use of aspirin; Z79.899 Other long term (current) drug therapy; Z79.84 Long term (current) use of oral hypoglycemic drugs; Z79.85 Long-term (current) use of injectable non-insulin antidiabetic drugs
CPT/HCPCS: 36415; 74177; 80053; 81003; 85025; 96361; 96374; 96375; 99284; J1885; J7030; Q9967

== ENCOUNTER 2025-02-18 11:00 | Emergency (ER) | payer MEDICARE, SELFPAY ==
--- OUTSIDE RECORDS SUMMARY | 2006-07-19 10:49 | XMS_ITS | Continuity of Care Document ---
Author Organization [facility] Address [address] [place] [address] [address] [place] [address] Phone Care Team Providers Care Child Care Director Name Role Phone Gonzalez OD, Shon Unavailable Unavailable Procedures Procedure Date Eye Exam & Treatment Refraction Fundus Photography W/ Report Advance Directives Directive Yes / No Effective Date File Name No Information Encounters Encounter Description Practice Location Reason(s) For Visit Diagnoses Date Provider Providers Copied on Encounter [facility], [address] [place] [address] [address], [place], [place], [address], tel:[phone] [facility] No Information 6-200 7 Gonzalez OD Shon. [facility]k [facility] Jed Alexander [facility], [place], [place], [facility], . tel:[phone] Referring Provider: Jacek Urias OD [facility] Veronika Adkins [facility], [place], [address]. tel:[phone] Family History Family Member Type Diagnosis Age At Onset No Information Payers Payer name Insurance type Covered alliance party ID Authoriza tion(s) No Information Social History [...]
--- OUTSIDE RECORDS SUMMARY | 2006-07-19 10:49 | XMS_ITS | Continuity of Care Document ---
Author Organization [facility] Address [address] [place] [address] [address] [place] [address] Phone Care Team Providers Care Recreational Leader Name Role Phone Gonzalez OD, Shon Unavailable Unavailable Procedures Procedure Date Eye Exam & Treatment Refraction Fundus Photography W/ Report Advance Directives Directive Yes / No Effective Date File Name No Information Encounters Encounter Description Practice Location Reason(s) For Visit Diagnoses Date Provider Providers Copied on Encounter [facility], [address] [place] [address] [address], [place], [place], [address], tel:[phone] [facility] No Information 6-200 7 Gonzalez OD Shon. Jacek [facility] Jed Alexander [facility], [place], [place], [facility], . tel:[phone] Referring Provider: Jacek Urias OD [facility] Veronika Adkins [facility], [place], [address]. tel:[phone] Family History Family Member Type Diagnosis Age [...]
--- OUTSIDE RECORDS SUMMARY | 2014-09-04 08:03 | XMS_ITS | Continuity of Care Document ---
Author Organization [facility] Address [address] [place] [address] Phone Care Team Providers Care Intelligence Senior Sergeant Name Role Phone Parish THOMAS, Liliana Unavailable Unavailable Allergies, Adverse Reactions, Alerts Substance Reaction Status Criticality levofloxacin Other Active No Information Medications Medication Instructions Dosage Effective Dates (start - stop) Status Comments CYMBALTA 60 MG CAPSULE 1 QD-daily - Ac tive Advance Directives Directive Yes / No Effective Date File Name No Information Encounters Encounter Description Practice Location Reason(s) For Visit Diagnoses Date Provider Providers Copied on Encounter [facility], [address], [place], [place], [address], tel:[phone] [facility] No Information Parish Ford. [address] [place] [address], [address], [place], [place], [address] . tel: [phone] [facility], [address], [place], [place], [address], tel:[phone] [facility] No Information Roger Ireland. [address] [place] [address], [address], [place], [place], [address] , [place]. tel: [phone] [facility], [address], [place], [place], [address], tel:[phone] [facility] MUSCLE WEAKNESS-GENERAL [address] Ireland[address] [place] [address], [address], [place], [place], [address] , . tel: [phone] [facility], [address], [place], [place], [address], [place] tel:[phone] [facility] MALAISE AND FATIGUE NECHEADACHE 6 [address] Ireland[address] [place] [address], [address], [place], [place], [address] , [place]. tel: [phone] [facility], [address], [place], [place], [address], [place] tel:[phone] [facility] NE OTHER ALTER CONSCIOUSNES 6 Roger Ireland. [address] [place] [address], [address], [place], [place], [address] , [place]. tel: [phone] [facility], [address], [place], [place], [address], [place] tel:[phone] [facility] CHR INTERSTIT CYSTITIS 6 Roger Ireland. [address] [place] [address], [address], [place], [place], [address] , [place]. tel: [phone] [facility], [address] [facility], [place], [place], [address], [place] tel:[phone] [facility] [place] No Information 6 Roger Ireland. [address] [place] [address], [address], [place], [place], [address] , [place]. tel: [phone] [facility], [address], [place], [place], [address], [place] tel:[phone] [facility] (Op) SCIATICASPONDYLOS NOS W/O MYELOP 6 Janki Singh. [address] [place] [facility], [place], [place], [address] , [place]. tel: [phone] [facility], [address], [place], [place], [address], [place] tel:[phone] [facility] ABDMNAL PAIN UNSPCF SITE [address] [place] [address], [address], [place], [place], [address] , [place]. tel: [phone] [facility], [address], [place], [place], [address], [place] tel:[phone] [facility] NAUSEA ALONESYMPT FEM CLIMACT STATEDIARRHEA 5 Roger Ireland. [address] [facility], [address], [place], [place], [address] , [place]. tel: [phone] [facility], [address], [place], [place], [address], [place] tel:[phone] [facility] [place] ABDMNAL PAIN GENERALIZED 5 Roger Ireland. [address] [facility], [address], [place], [place], [address] , [place]. tel: [phone] [facility], [address], [place], [place], [address], [place] tel:[phone] [facility] BACKACHE NOSEPISODIC MOOD DISORD NEC 200 5 Mallory Decker. [address] , [address], [place], [place], [address] , . tel: [phone] [facility], [address], [place], [place], [address], [place] tel:[phone] [facility] URIN TRACT INFECTION NOS May-0 4 Mallorylesley Decker. [address] , [address], [place], [place], [address] , [place]. tel: [phone] [facility], [address], [place], [place], [address], [place] tel:[phone] [facility] PYELONEPHRITIS NOSHEMATURIA 4 Mallorylesley Decker. [address] , [address], [place], [place], [address] , [place]. tel: [phone] [facility], [address], [place], [place], [address], [place] tel:[phone] [facility] ABDMNAL PAIN RT LWR QUAD 4 Roger Ireland. [address] [facility], [address], [place], [place], [address] , . tel: [phone] [facility], [address], [place], [place], [address], tel:[phone] [facility] HYPOGLYCEMIA NOS Javed- 4 Roger Ireland. [address] [place] [address], [address], [place], [place], [address] , . tel: [phone] [facility], [address], [place], [place], [address], tel:[phone] [facility] URINARY FREQUENCY Mar-0 200 3 Roger Ireland. [address] [place] [address], [address], [place], [place], [address] , . tel: [phone] Family History Family Member Type Diagnosis Age At Onset No Information Payers Payer name Insurance type Covered green party ID Authoriza tion(s) No Information Social [...]
--- OUTSIDE RECORDS SUMMARY | 2014-09-04 08:03 | XMS_ITS | Continuity of Care Document ---
Author Organization [facility] Address [address] [place] [address] Phone Care Team Providers Care Data Clerk Name Role Phone Parish THOMAS, Liliana Unavailable [...] Diagnoses Date Provider Providers Copied on Encounter [facility], [address], [place], [place], [address], tel:[phone] [facility] No Information Parish Ford. [address] [place] [address], [address], [place], [place], [address] . tel: [phone] [facility], [address], [place], [place], [address], tel:[phone] [facility] No Information Roger Ireland. [address] [place] [address], [address], [place], [place], [address] , [place]. tel: [phone] [facility], [address], [place], [place], [address], tel:[phone] [facility] MUSCLE WEAKNESS-GENERAL 6 [address] Ireland[address] [place] [address], [address], [place], [place], [address] , . tel: [phone] [facility], [address], [place], [place], [address], [place] tel:[phone] [facility] NE MALAISE AND FATIGUE NECHEADACHE 6 Roger Ireland. [address] [place] [address], [address], [place], [place], [address] , [place]. tel: [phone] [facility], [address], [place], [place], [address], [place] tel:[phone] [facility] NE OTHER ALTER CONSCIOUSNES 6 Roger Ireland. [address] [place] [address], [address], [place], [place], [address] , [place]. tel: [phone] [facility], [address], [place], [place], [address], [place] tel:[phone] [facility] CHR INTERSTIT CYSTITIS 6 Roger Ireland. [address] [place] [address], [address], [place], [place], [address] , [place]. tel: [phone] [facility], [address] [facility], [place], [place], [address], [place] tel:[phone] [facility] NE No Information 6 Roger Ireland. [address] [place] [address], [address], [place], [place], [address] , [place]. tel: [phone] [facility], [address], [place], [place], [address], [place] tel:[phone] [facility] [place] (Op) SCIATICASPONDYLOS NOS W/O MYELOP 6 Janki Singh. [address] [facility], [place], [place], [address] , [place]. tel: [phone] [facility], [address], [place], [place], [address], [place] tel:[phone] [facility] ABDMNAL PAIN UNSPCF SITE [address] [place] [address], [address], [place], [place], [address] , [place]. tel: [phone] [facility], [address], [place], [place], [address], [place] tel:[phone] [facility] NAUSEA ALONESYMPT FEM CLIMACT STATEDIARRHEA 5 Roger Ireland. [address] [facility], [address], [place], [place], [address] , [place]. tel: [phone] [facility], [address], [place], [place], [address], [place] tel:[phone] [facility] NE ABDMNAL PAIN GENERALIZED 5 Roger Ireland. [address] [facility], [address], [place], [place], [address] , [place]. tel: [phone] [facility], [address], [place], [place], [address], [place] tel:[phone] [facility] BACKACHE NOSEPISODIC MOOD DISORD NEC 200 5 Mallory Decker. [address], [place], [place], [address] , . tel: [phone] [facility], [address], [place], [place], [address], [place] tel:[phone] [facility] URIN TRACT INFECTION NOS May-0 4 Mallorylesley Decker. [address] , [address], [place], [place], [address] , [place]. tel: [phone] [facility], [address], [place], [place], [address], [place] tel:[phone] [facility] PYELONEPHRITIS NOSHEMATURIA 4 Mallorylesley Decker. [address] , [address], [place], [place], [address] , [place]. tel: [phone] [facility], [address], [place], [place], [address], [place] tel:[phone] [facility] ABDMNAL PAIN RT LWR QUAD 4 Roger Ireland. [address] [facility], [address], [place], [place], [address] , . tel: [phone] [facility], [address], [place], [place], [address], tel:[phone] [facility] HYPOGLYCEMIA NOS Javed- 4 Roger Ireland. [address] [place] [address], [address], [place], [place], [address] , . tel: [phone] [facility], [address], [place], [place], [address], tel:[phone] [facility] URINARY FREQUENCY Mar-0 200 3 Roger Ireland. [address] [place] [address], [address], [place], [place], [address] , . tel: [phone] Family History Family Member Type Diagnosis Age [...]
--- NOTE | ~2025-02-18 | CT_ITS ---
EXAMINATION: CT abdomen pelvis wo con DATE: 02/18/2025 11:49 INDICATION: Left flank pain TECHNIQUE: Computed tomography (CT) of the abdomen and pelvis was performed without intravenous contrast. Automated exposure control and iterative reconstruction technique were employed. The dose-length product was 970.25 mGy-cm. COMPARISON: 01/25/2025 FINDINGS: Visualized mid to lower lungs are clear. Heart size is normal. No pericardial or pleural effusion. Liver, gallbladder, spleen, pancreas, bilateral adrenal glands and kidneys are normal. Bowels including the appendix are normal. Bladder is normal. The uterus is not identified and has likely been surgically resected. No free intraperitoneal gas or fluid. No pathologically enlarged abdominal or pelvic lymphadenopathy. Bilateral spinal cord stimulator leads in the posterior aspect of the lower thoracic central canal with distal tips at the level of T6- T7. L2 and L5 laminectomies. Expected L5-S1 posterior spinal fusion with bilateral vertical azam and pedicle screw fixation. Anterior fusion at L4-L5 and severe disc height loss at L5-S1. IMPRESSION: 1. No acute intra-abdominal/pelvic process. Reviewed, dictated and finalized at location A.
--- NOTE | ~2025-02-18 | CT_ITS ---
EXAMINATION: CTA chest PE protocol DATE: 02/18/2025 13:02 INDICATION: Left flank pain and pleuritic chest pain. Positive d-dimer. TECHNIQUE: Computed tomography (CT) pulmonary angiogram of the chest was performed with 100 mL Omnipaque-350 intravenous contrast. Additional 3D reconstructions utilizing coronal maximum intensity projection (MIP) were performed. Automated exposure control and iterative reconstruction technique were employed. The dose-length product was 513.41 mGy-cm. COMPARISON: None FINDINGS: No pulmonary embolism. Mild groundglass opacities in the dependent lower lobes without associated septal line thickening to suggest pulmonary edema in this most likely related to atelectasis. Heart size is normal. No pericardial effusion. Thoracic aorta is normal in caliber with no dissection. No patho logically enlarged thoracic lymphadenopathy. Visualized upper abdomen is unremarkable. Moderate thoracic spondylosis. Spinal stimulator leads in the midthoracic posterior central canal with distal tips at the level of T6-T7. C5- C7 anterior spinal fusion with anterior plate and screw fixation. IMPRESSION: 1. No pulmonary embolism or other acute cardiopulmonary disease. Reviewed, dictated and finalized at location A.
[2025-02-18 11:04] VITALS: BP 124/61; PULSE 65; RESP 17; TEMP 36.5; O2SAT 98
--- NOTE | 2025-02-18 11:18 | ECG_ITS ---
Test Date: 2025-02-18 11:09:41 Measurements Intervals [place] Rate: 66 P: -88 ID: [id number] QRS: 74 QRSD: 94 T: 71 QT: 416 QTc: 437 Interpretive Statements NORMAL SINUS RHYTHM No previous ECG available for comparison Electronically Signed On 02-18-2025 12:25:59 CDT by Diogo Toscano M.D.
[2025-02-18 11:23] LABS: Hematocrit 39.6 % (37.0-47.0); Hemoglobin 12.8 g/dL (12.0-15.0); Immature Granulocyte Percent A 0.2 % (0-0.5); Lymphocytes Absolute Auto 2.28 K/mm3 (0.9-3.2); Mean Corpuscular HGB Conc 32.3 g/dl (32-36); Mean Corpuscular Hemoglobin 26.8 pg (26-34); Mean Corpuscular Volume 83.0 fl (80-100); Nucleated Red Blood Cells Absolute Auto 0.000 K/mm3 (0.0-0.012); Nucleated Red Blood Cells Perc 0.0 % (0.0-0.2); Platelet Count Result 362 k/mm3 (150-375); Red Blood Count 4.77 M/mm3 (4.2-5.4); White Blood Count 9.6 K/mm3 (4.5-10.0)
--- OUTSIDE RECORDS SUMMARY | 2025-02-18 11:27 | XMS_ITS | Clinical Summary ---
Author Organization [facility] Address [address] [place] [address] Care Team Providers Care Graphic Art Technician Name Role Phone Dian Montalvo MD Unavailable Dorys Paredes MD Primary Care Provider [phone] See Malone MD Unavailable [phone] Sandra Tabares MD Unavailable [phone] Miscellaneous, Not In File Unavailable Unava ilable Damir [place] MD Unavailable [phone] Allergies Active Allergy Reactions Criticality Noted Date Comments Amitriptyline Hallucinations Medium 10/22/2022 Metformin Diarrhea Low 10/28/2022 Shellfish Swelling Medium 08/10/2014 Swelling Medications meloxicam (MOBIC) 15 mg tablet Take 1 tablet (15 mg total) by mouth daily 10/01/19 23 Active cetirizine (ZyrTEC) 10 mg tablet Take 1 tablet (10 mg total) by mouth nightly Active gabapentin (NEURONTIN) 800 mg tablet Take 1 tablet (800 mg total) by mouth daily as needed Active buPROPion XL (WELLBUTRIN XL) 150 mg 24 hr tablet 08/01/19 24 Active midodrine (PROAMATINE) 5 mg tablet TAKE 1 TABLET BY MOUTH THREE TIMES DAILY BEFORE MEALS Active dexAMETHasone (DECADRON) 4 mg/mL injection USE 1 ML PER ONTOPHORESIS SESSION 12/08/19 24 Active rosuvastatin (CRESTOR) 20 mg tablet TAKE 1 TABLET BY MOUTH EVERY NIGHT AT BEDTIME. REPLACES ATORVASTATIN 12/20/19 24 Active venlafaxine XR (EFFEXOR-XR) 150 mg 24 hr capsule Take 1 capsule (150 mg total) by mouth Active hydroxychloroq uine (PLAQUENIL) 200 mg tablet Take 1 tablet (200 mg total) by mouth Active linaGLIPtin (Tradjenta) 5 mg tabletIndicati ons:type 2 diabetes mellitus Take 1 tablet (5 mg total) by mouth daily 30 tablet 11 10/09/19 25 Active metFORMIN (GLUCOPHAGE) 500 mg tabletIndicati ons:Type 2 diabetes mellitus without complication, without long-term current use of insulin (HCC) TAKE 1 TABLET(500 MG) BY MOUTH TWICE DAILY WITH MEALS 60 tablet 2 11/16/19 25 Active levothyroxine (SYNTHROID) 125 mcg tablet TAKE 1 TABLET(125 MCG) BY MOUTH DAILY 30 tablet 5 02/05/20 25 Active levothyroxine (SYNTHROID) 125 mcg tablet TAKE 1 TABLET(125 MCG) BY MOUTH DAILY 30 tablet 5 08/17/19 25 025 Discontinued Active Problems Problem Noted Date Diagnosed Date [...] hyperlipidemia Assessment & Plan (08/03/2023 6:02 PM CONTRACT CLERK): Pt's diabetes is not optimally controlled, and she is having nearly intolerable symptoms on Ozempic. I recommend the following: - Obtain a [employer] Ellis 3 for closer monitoring, ordered (ask [...] sided frontal, radiates to R eye and rastafari, has associated blurred vision, can last for [...] 10/22/2022 Assessment & Plan (08/03/2023 5:59 PM CONTRACT CLERK): I don't have records for the syncopal [...] on file Legal Sex Female 7:23 PM CONTRACT CLERK Gender Identity Not on file Sexual Orientation [...] Vaccine (#1) 2025 Hemoglobin A1C 04/09/2025 10/08/2024, 08, 08/02/2023, Additional history exists Albumin Creatinine Ratio, Urine 10/08/2025 Lipid Panel 10/08/2025 10/08/2024, 10/22/2022 eGFR 10/08/2025 10/08/2024, 0402/2024, 02/24/2023, Additional history exists Hepatitis C Screening Completed 10/10/2023 Medical Devices Implanted Type Area Purchasing Department Clerk Device Identifier Shelf Expiration Date Model / Serial / Lot [employer] Reveal Linq Ii Implantable Manufacturer'S Representative Lnq22 - [id number] - [id number] Implanted:Qty: 1 on 01/04/2023 by See Malone MD at [facility] Implantable Loop Recorder N/A: Sternal Boarder [employer] 03/20/2024 [id number] / [id number] / Procedures Procedure Name Priority Date/Time [...] CDT 10/08/2024 2:04 PM CDT Terra Leiva NP LAB BLOOD ORDERABLES Stephanie l Result Performing Organization Address [facility] de Phone Number [facility] [place] [address] * Albumin Creatinine Ratio, Urine (10/08/2024 12:34 PM CDT) Pathologist [facility] Albumin Ur <12.0 mg/L Comment: Interpretive Data No reference range established. Current interpretive data was last revised 2018. Creatinine Ur 37.5 mg/dL [facility] Comment: Interpretive Data No reference range established. Current interpretive data was last revised 2018. Albumin Creatinine Ratio, Ur See Comment 1 - 29 mg/g [facility] Comment:Unable to calculate Urine 10/08/2024 12:3 4 PM CDT 10/08/2024 1:53 PM CDT Terra Leiva NP LAB URINE ORDERABLES Stephanie l Result Performing Organization Address [facility] Co de Phone Number [facility] [place] [address] * (ABNORMAL) Lipid panel (10/08/2024 12:34 PM [...] revised on 2018. Triglycerides 216(H) <=149 mg/dL [facility] Comment: Interpretive Data Ages < or = [...] revised on 2018. HDL 57 >=40 mg/dL [facility] Comment: Interpretive Data Ages < or = [...] on 2018. LDL, calculated 76 <=129 mg/dL [facility] Comment: Interpretive Data Ages < or = 19 years Acceptable: <110 mg/dL Borderline high: 110-129 mg/dL High: >or= 130 mg/dL Ages > or = 20 years Optimal: <100 mg/dL Near optimal: 100-129 mg/dL Borderline high: 130-159 mg/dL High: >160 mg/dL Calculated using the Juan LDL-C estimating equation. This equation was implemented on 2024. Prior to this date LDL-C was estimated using the Friedewald equation. Literature References: 1. Expert Panel on Integrated Guidelines for Cardiovascular Health and Risk Reduction in Children and Adolescents. Pediatrics 2011;128:S213 2. NCEP Expert Panel. Circulation 2004;110:227 3. Juan Martinez et al. LEONARDO Cardiol. 2020 October 11;5(5):540-548. doi: 10.1001/jamacardio.2020.0013 Current Interpretive Data was last revised on 2024. Non-HDL Cholesterol 112 mg/dL [facility] Comment: Interpretive Data Ages < or = [...] last revised on 2018. Chol/HDL ratio 3 [facility] Blood 10/08/2024 12:3 4 PM CDT 10/08/2024 1:53 PM CDT N[facility]ative [facility] - 10/08/2024 2:42 PM CDT These lab test should be done fasting. This means do not eat or drink for at least 12 hours prior to getting your blood drawn. us Terra Leiva NP LAB BLOOD ORDERABLES Stephanie adams Result [facility] Department [place] [address] * POCT hemoglobin A1c (10/08/2024 11:36 AM CDT) Hemoglobin A1C, POC 6.9 4.0 - 5.6 % Blood 10/08/2024 11:3 6 AM CDT Terra Leiva NP POINT OF CARE TEST [...] 3:06 PM CDT 10/10/2023 6:14 PM CDT Pati Ray MD LAB MICROBIOLOGY - GENERAL ORDER DANIELLE Final Result [facility] [address] Department [place] [address] from Last 3 Months or Most Recently Relevant to Health Maintenance Insurance [employer] MEDICARE HMO PPO MEDICARE OOS MEDICARE OOS Advance Directives For more information, please contact: [phone] * Full Code (Latest Code Status on File) Date Activated Date Inactivated Comments 01/01/2023 7:45 PM 01/05/2023 6:16 PM * Full Code Date Activated Date Inactivated Comments 10/22/2022 10:14 PM 10/25/2022 7:10 PM Care Teams Graphic Art Technician Relationship Specialty [place] [address] [facility] [address] [facility] [address] [place] [address] PCP - General Internal Medicine 12/13/22 [place] [address] [address] [address] [place] [address] Consulting Physician Pain Management 10/28/22 See aMlone MD [address] [facility] [address], [place] [address] Consulting Physician Cardiology 01/05/23 Sandra Tabares MD [address] [place] [address] [address] [place] [address] Referring Physician Neurology 01/05/23 Miscellaneous, Not In File 01/05/23 Damir [place] MD [address] [place] [address] [address] [place] [address] Consulting Physician Neurology 01/05/23
--- OUTSIDE RECORDS SUMMARY | 2025-02-18 11:27 | XMS_ITS | Clinical Summary ---
Author Organization [facility] Address [address] [place] [address] Care Team Providers Care Medical Staff Coordinator Name Role Phone Unknown, Provider Primary Care Provider Unavaila ble Source Comments [facility],non-owned Affiliates and Associated Physician Practices is amultiple site organization consisting of ambulatory clinics and hospital sitesin [place], [place] and [place]. This disclosure is being madepursuant to the Care Everywhere program and may not contain all information available regarding this patient. 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 Not on file Not [...] Description 12/26/2025 1:00 PM CDT Office Visit [facility] [address] [facility] [address] [place], [place] [id number] Nadege Obrien, SHOE REPAIRER-BACK TENDER CYLINDER [address] [facility] [address] [place] [address] Health Maintenance Due Date Last Done Comments [...] 50+ (1 of 2 - PCV) 1979 ZOSTER VACCINE (1 of 2) 2010 MAMMOGRAM 09/22/2017 09/23/2015 DIABETES RETINOPATHY SCREENING 03/27/2024 DIABETES-FOOT EXAM WITH MONOFILAMENT 03/27/2024 DEPRESSION SCREENING 06/13/2024 03/28/2023 DIABETES - URINE PROTEIN SCREENING 06/13/2024 MEDICARE AWV CALENDAR YEAR 2024 COVID-19 VACCINE ( season) 2025 INFLUENZA VACCINE (#1) 2025 DIABETES-HGB A1C 04/09/2025 [...] if suspicious findings are present clinically. An [employer] Certified Facility. [facility] Breast Centers utilize [employer] as a reminder system to notify patients of their next recommended mammograms. Edited by Trudi Nixon on 09/25/2015 9:12 AM Trudi Johns SHOE REPAIRER-BACK TENDER CYLINDER MAMMO ORDERABLES Fin al Result from Last 3 Months or Most Recently Relevant to Health Maintenance Insurance [facility] Address: [address] [place] [phone] [employer] Care Teams Medical Staff Coordinator Relationship Specialty Start Date End Date Unknown, Provider PCP - General 12/25/24
--- OUTSIDE RECORDS SUMMARY | 2025-02-18 11:27 | XMS_ITS | Clinical Summary ---
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 No JS restrictions. Pt must have remote to turn into MRI mode or off ONLY 30 mins of scan time, no coil restrictions-ana maría 02/11/23 Loop Recorder Insurance BCBS MEDICARE Care Teams Home Office Representative Relationship Specialty Start Date End Date Beka Wilson DO [address] [facility] [address] [place] [phone] PCP - General Internal Medicine 06/16/17
[2025-02-18 11:34] LABS: Alanine Aminotransferase 22 U/L (6-35); Albumin Level 4.4 g/dL (3.5-5.1); Alkaline Phosphatase 66 U/L (38-126); Anion Gap 9 mmol/L (4-12); Aspartate Amino Transferase 28 U/L (14-36); Bilirubin,Total 0.3 mg/dL (0.2-1.3); Blood Urea Nitrogen 14 mg/dL (7-17); Calcium 9.5 mg/dL (8.4-10.2); Carbon Dioxide 27 mmol/L (22-30); Chloride 100 mmol/L (98-107); Estimated CRCL calculation 81 ml/min; Estimated Glomerular Filt Rate > 60; Glucose 217 mg/dL (65-110); Potassium 4.5 mmol/L (3.4-5.0); Sodium 136 mmol/L (137-145); Total Protein 7.4 g/dL (6.3-8.2)
[2025-02-18] MEDS: MORPHINE SULFATE (*CRX) 4 MG/ML INJ IV PUSH (11:50)
[2025-02-18] MEDS: ONDANSETRON INJ 4 MG/2 ML VIAL IV PUSH (11:51)
--- NOTE | 2025-02-18 12:03 | ED.BACK ---
HPI - Back Pain/Injury General Chief Complaint: Back Pain/Injury Stated Complaint: left flank pain Time Seen by Provider: 02/18/25 11:05 Source: patient Mode of arrival: ambulatory Limitations: no limitations History of Present Illness HPI Narrative: Patient is a 64 y/o female who presents to the ED with c/o left-sided flank pain. Patient reports having pain throughout her left flank region for the past 3 days. Reports pain is worse with movement, deep breathing. Has not taken anything for pain. Reported having some similar pain a few weeks ago and was seen in the ED here and CT scan of the abd/pelvis showed hydronephrosis. She was seen by urology afterwards and determined not to need any intervention. Patient does report having some difficulty urinating at times, denies hematuria. Reports nausea, denies vomiting, diarrhea, constipation, fevers. Denies chest pain. Related Data Home Medications ?Medication ?Instructions ?Recorded ?Confirmed ?Last Taken ?Type aspirin 81 mg tablet,delayed 81 mg PO DAILY 05/04/19 02/18/25 07/03/20 History release (Marjorie Low Dose Aspirin) black cohosh 540 mg capsule 540 mg PO DAILY 03/06/20 02/18/25 07/05/20 History gabapentin 800 mg tablet 800 mg PO TID PRN pain 09/09/22 02/18/25 Unknown History hydroxychloroquine 200 mg tablet 200 mg PO BID 11/01/24 02/18/25 Unknown History midodrine 5 mg tablet 5 mg PO TID 11/01/24 02/18/25 Unknown History propranolol 10 mg tablet 10 mg PO BID 11/01/24 02/18/25 Unknown History cariprazine 1.5 mg capsule 1.5 mg PO DAILY 12/07/24 02/18/25 Unknown History (Vraylar) fluconazole 100 mg tablet mg 01/25/25 02/18/25 Unknown History diclofenac sodium 75 mg 75 mg PO BID 01/30/25 02/18/25 Unknown History tablet,delayed release estradiol 1 mg tablet 1 mg PO DAILY 01/30/25 02/18/25 Unknown History Allergies Allergy/AdvReac Type Severity Reaction Status Date / Time shellfish derived Allergy Unknown Anaphylaxis Verified 02/18/25 10:04 amitriptyline Allergy Hallucinati Verified 02/18/25 10:04 ons Review of Systems Review of Systems: All systems reviewed & are unremarkable except as noted in HPI. All systems reviewed & are unremarkable except as noted in HPI and below FOR[facility]LY [facility] Past Medical History Medical History Anxiety GERD (gastroesophageal reflux disease) Chronic sinusitis Colitis Urinary incontinence Constipation Depression Headache, migraine HLD (hyperlipidemia) Recurrent UTI Spinal cord stimulator status Thyroid disease Hypokalemia Opioid abuse DM w/o complication type II, uncontrolled Chronic pain of left knee Surgical History Surgical History H/O cardiac catheterization S/P right rotator cuff repair 06/2020 History of back surgery x9 H/O: hysterectomy H/O right knee surgery H/O left knee surgery x2 H/O neck surgery Family History Family History Mother Diabetes mellitus Hypertension Family history of elevated blood lipids Father Diabetes mellitus Hypertension Family history of congenital heart disease Family history of kidney disease Other Asthma Depression Family history of arthritis Family history of chronic obstructive pulmonary disease Family history of hearing loss Family history of liver disease Family history of malignant neoplasm of breast in first degree relative Family history of mental disorder Family history of obesity Social History Social History Smoking status: Never smoker Second hand tobacco smoke exposure: No Alcohol intake: current Alcohol use details: TWO DRINKS PER MONTH Substance use: never Substance use type: does not use Living arrangements: with friend(s) Spiritual care concerns: No Exam Narrative: GENERAL: Well appearing, obese with BMI of 31.8, non-toxic, in no acute distress. HEAD: Normocephalic, atraumatic. RESPIRATORY: Airway patent, respirations nonlabored. Clear to auscultation bilaterally, no rales, rhonchi, wheezing. No focal lung sounds. CARDIOVASCULAR: Regular rate and rhythm without murmurs, rubs, or gallops. ABDOMINAL: Soft, mild tenderness palpation left lateral abdomen, nondistended. Normoactive BS. Positive CVA tenderness on left. MUSCULOSKELETAL: Moves all extremities. No gross deformities. SKIN: Warm, dry, normal color. NEURO: A&O X3. Speech clear. Cranial nerves II-XII grossly intact. Steady gait. No ataxic movements. PSYCHIATRIC: Appropriate mood and affect. Normal interaction. Course Vital Signs Vital signs: Vital Signs Temperature 97.7 F 02/18/25 11:04 Pulse Rate 65 02/18/25 11:04 Respiratory Rate 17 02/18/25 11:04 Blood Pressure 124/61 02/18/25 11:04 Pulse Oximetry 98 02/18/25 11:04 Oxygen Delivery Room Air 02/18/25 11:04 Temperature 97.7 F 02/18/25 11:04 Pulse Rate 64 02/18/25 14:20 Respiratory Rate 15 02/18/25 14:20 Blood Pressure 124/54 L 02/18/25 14:20 Pulse Oximetry 97 02/18/25 14:20 Oxygen Delivery Room Air 02/18/25 11:04 MDM - Back Pain/Injury MDM Narrative Medical decision making narrative: Patient presented to ED with 3 day history of left-sided flank pain, worse pain, movement. Vital signs are stable upon arrival. Patient in no acute distress. Oxygen stable on room air. Laboratory studies fairly unremarkable. No leukocytosis or anemia. Stable kidney function. Normal LFTs. UA is completely clear, no signs of infection or hematuria. CT of the abdomen/pelvis was obtained and without acute findings. No evidence of hydroureteronephrosis at this time. No ureterolithiasis. EKG with sinus rhythm, no concerning ST changes. Troponin is undetectable. D-dimer did result mildly elevated at 0.64. CTA of the chest was obtained and without evidence of PE or other acute cardiopulmonary findings. Discussed lab and imaging findings, overall reassuring workup with patient. She is feeling improved with supportive therapy. Suspicious for musculoskeletal etiology given pain being somewhat worse with movement and again otherwise reassuring workup. Discussed discharge with muscle relaxers and lidocaine patches for home. Discussed close follow-up with PCP for further evaluation. Given strict return precautions. Patient in agreement with plan. Discharged in stable condition. Medical Records Attestation: I reviewed the patient's medical records. Lab Data Attestation: I reviewed the patient's lab results. 02/18/25 11:11 02/18/25 11:11 Labs: Lab Results 02/18/25 02/18/25 Range/Units 11:11 13:17 WBC 9.6 (4.5-10.0) K/mm3 RBC 4.77 (4.2-5.4) M/mm3 Hgb 12.8 (12.0-15.0) g/dL Hct 39.6 (37.0-47.0) % MCV 83.0 (80-100) fl MCH 26.8 (26-34) pg MCHC 32.3 (32-36) g/dl RDW 13.1 (11.5-14.5) % Plt Count 362 (150-375) k/mm3 MPV 9.4 (7.4-10.4) fl Immature Gran % (Auto) 0.2 (0-0.5) % Neut % (Auto) 69.6 (45.5-73.1) % Lymph % (Auto) 23.7 (18.3-44.2) % Canadian % (Auto) 4.6 (2.6-8.5) % Eos % (Auto) 1.5 (0-4.4) % Baso % (Auto) 0.4 (0.2-1.2) % Lymph # (Auto) 2.28 (0.9-3.2) K/mm3 Canadian # (Auto) 0.4 (0.1-0.6) K/mm3 Eos # (Auto) 0.1 (0-0.3) K/mm3 Baso # (Auto) 0.0 (0.0-0.1) K/mm3 Abs Immat Gran (auto) 0.02 (0.00-0.031) K/mm3 Absolute Neuts (auto) 6.7 (1.3-6.7) K/mm3 Absolute Nucleated RBC 0.000 (0.0-0.012) K/mm3 Nucleated RBC % 0.0 (0.0-0.2) % PT 12.6 (11.1-14.7) Seconds INR 0.9 APTT 25.4 (22.3-36.8) Seconds D-Dimer 0.64 H (<0.48) ug/mL Sodium 136 L (137-145) mmol/L Potassium 4.5 (3.4-5.0) mmol/L Chloride 100 (98-107) mmol/L Carbon Dioxide 27 (22-30) mmol/L Anion Gap 9 (4-12) mmol/L BUN 14 D (7-17) mg/dL Creatinine 0.70 (0.7-1.0) mg/dL Estim Creat Clear Calc 81 ml/min Estimated GFR > 60 (59 - ) Glucose 217 H (65-110) mg/dL Calcium 9.5 (8.4-10.2) mg/dL Total Bilirubin 0.3 (0.2-1.3) mg/dL AST 28 (14-36) U/L ALT 22 (6-35) U/L Alkaline Phosphatase 66 (38-126) U/L Troponin I < 0.012 (0.000-0.034) ng/mL Total Protein 7.4 (6.3-8.2) g/dL Albumin 4.4 (3.5-5.1) g/dL Urine Color Yellow (Yellow) Urine Appearance Clear (Clear) Urine pH 8.0 (5.0-9.0) Ur Specific Camino 1.027 (1.001-1.035) Urine Protein Negative (Negative) mg/dL Urine Glucose (UA) Negative (Negative) mg/dL Urine Ketones Negative (Negative) mg/dL Ur Blood (Man) Negative (Negative) Urine Nitrate Negative (Negative) Urine Bilirubin Negative (Negative) Urine Urobilinogen 0.2 (<2.0) mg/dL Leukocyte Esterase Rfl Negative (Negative) JORGE A/UL Imaging Data Attestation: I personally reviewed and interpreted this imaging study as follows: Radiologist's impression: ITS Impressions Abdomen/Pelvis CT 02/18/25 11:50 IMPRESSION: 1. No acute intra-abdominal/pelvic process. Chest CTA 02/18/25 13:36 IMPRESSION: 1. No pulmonary embolism or other acute cardiopulmonary disease. ECG Data EKG #1: Attestation: I personally reviewed and interpreted this ECG as follows: ECG completion date: 02/18/25 ECG completion time: 11:09 EKG Interpretation: normal rate (66), sinus rhythm and non-specific ST changes Discharge Plan Discharge Clinical Impression: Left flank pain Patient Disposition: Home Condition: Stable Instructions: Antibiotic Form, Muscle Strain (ED), Acute Low Back Pain (ED), Flank Pain (ED) Additional Instructions: Continue Tylenol and Ibuprofen as needed for pain. You may use ice/heat, lidocaine patches to area of pain. Take muscle relaxers as needed and prescribed. Recommend taking these at night as they may cause sedation. Do not drive, operate heavy machinery, drink alcohol while on muscle relaxers as this may cause further sedation. Follow-up with your primary care doctor for further evaluation. Return to the ED if you experience worsening or severe pain, recurrent injury, numbness in groin or legs, going to the bathroom without meaning to, unable to keep down food or drink, difficulty breathing, chest pain, or any other symptoms of concern. Patient Language: Croatian Prescriptions: New methocarbamol 750 mg tablet 1,500 mg PO TID PRN (Reason: muscle spasm) Qty: 20 0RF lidocaine 5 % adhesive patch,medicated 1 patch topical DAILY Qty: 15 0RF Rx Instructions: leave on most painful area for up to 12 hrs No Action fluconazole 100 mg tablet black cohosh 540 mg capsule 540 mg PO DAILY estradiol 1 mg tablet 1 mg PO DAILY diclofenac sodium 75 mg tablet,delayed release (DR/EC) 75 mg PO BID gabapentin 800 mg tablet 800 mg PO TID PRN (Reason: pain) midodrine 5 mg tablet 5 mg PO TID propranolol 10 mg tablet 10 mg PO BID hydroxychloroquine 200 mg tablet 200 mg PO BID aspirin [Marjorie Low Dose Aspirin] 81 mg tablet,delayed release (DR/EC) 81 mg PO DAILY (DME) OneTouch Verio test strips Strip See Rx Instructions .Route Qty: 100 4RF Rx Instructions: Use to test blood sugar three times a day venlafaxine 150 mg capsule,extended release 24hr See Rx Instructions .ROUTE .COMPLEX Qty: 90 1RF Dose Instruction: TAKE 1 CAPSULE BY MOUTH DAILY Rx Instructions: TAKE 1 CAPSULE BY MOUTH DAILY levothyroxine 125 mcg tablet See Rx Instructions .ROUTE .COMPLEX Qty: 90 0RF Dose Instruction: TAKE 1 TABLET BY MOUTH DAILY Rx Instructions: TAKE 1 TABLET BY MOUTH DAILY. due for an appointment last refill until seen. Vraylar 1.5 mg capsule 1.5 mg PO DAILY metformin 500 mg tablet 500 mg PO BID Qty: 180 1RF Linzess 72 mcg capsule 72 mcg PO DAILY Qty: 90 1RF Trulicity 0.75 mg/0.5 mL pen injector 0.75 mg subcut WEEKLY Qty: 2 5RF rosuvastatin 20 mg tablet 20 mg PO DAILY Qty: 90 0RF Follow-up/Referrals: Beka Wilson DO [Primary Care Provider, Internal Medicine] Time of Disposition: 14:00
[2025-02-18] MEDS: CYCLOBENZAPRINE HCL 5 MG TABLET PO (12:04)
[2025-02-18 12:19] LABS: INR 0.9; Prothrombin Time 12.6 Seconds (11.1-14.7)
[2025-02-18 12:20] LABS: Partial Thromboplastin Time 25.4 Seconds (22.3-36.8)
[2025-02-18 12:27] LABS: Troponin I < 0.012 ng/mL (0.000-0.034)
[2025-02-18 13:19] VITALS: BP 139/53; PULSE 64; RESP 16; O2SAT 100
[2025-02-18 13:25] LABS: Add Urine Microscopic? NO; Appearance Urine Clear (Clear); Glucose Urine UA Negative (Negative); Leukocyte Esterase Ur Negative LEU/UL (Negative); Nitrate Urine Negative (Negative); Specific Grav Ur 1.027 (1.001-1.035)
[2025-02-18 14:20] VITALS: BP 124/54; PULSE 64; RESP 15; O2SAT 97
== END 2025-02-18 14:21 | disposition home or self-care (01) ==
PROVIDERS: Emergency Provider Physician Assistant; PCP Internal Medicine
DX: R10.9 Unspecified abdominal pain (principal); E78.5 Hyperlipidemia, unspecified; E11.9 Type 2 diabetes mellitus without complications; E07.9 Disorder of thyroid, unspecified; J32.9 Chronic sinusitis, unspecified; K21.9 Gastro-esophageal reflux disease without esophagitis; F41.9 Anxiety disorder, unspecified; F32.A Depression, unspecified; Z87.440 Personal history of urinary (tract) infections; Z90.710 Acquired absence of both cervix and uterus; Z79.82 Long term (current) use of aspirin; Z79.899 Other long term (current) drug therapy; Z79.85 Long-term (current) use of injectable non-insulin antidiabetic drugs; Z79.84 Long term (current) use of oral hypoglycemic drugs
CPT/HCPCS: 36415; 71275; 74176; 80053; 81003; 84484; 85025; 85380; 85610; 85730; 93005; 96374; 96375; 99284; A9270; J2270; J2405; Q9967

== ENCOUNTER 2025-04-08 14:46 | Outpatient (CLI) | payer MEDICARE, SELFPAY ==
--- OUTSIDE RECORDS SUMMARY | 2024-10-22 08:30 | XMS_ITS ---
Author Organization [facility] filomena Address [address] [place] [address] Care Team Providers Care Night Custodian Name Role Phone Beka Wilson Primary Care Provider Unavailab Pati Martínez Unavailable [phone] REASON FOR VISIT follow-up Encounters Encounter Location Date Provider Diagnosis [facility] [address] [place] [address] 10/22/2024 Pati Aj Plan Of Treatment Next Appt Details Provider Name:Pati Aj, 07/03 01:30:00 PM, [address], [place], [address], Progress Notes * Danay DOVERDOB:[birth year] (64 yo F)Acc No.[id number]:10/22/2024 Progress Notes Patient: Danay JON Appointment Provider: Kieran AJ MD :1960 A ge:64 Y S ex:Female Date:10/22/2024 Address:[address] [place], [place] [id number] Pcp:Beka Wilson Subjective: * Chief Complaints: * 1 . Follow-up. * Medical History: Objective: * Vitals: Assessment: Plan: * Treatment: * Billing Information: * Visit Code: * Procedure Codes: * Electronic signature of Pati Aj MD on 04/08/2025 at 04:35 PM CDT Sign off status: Pending * Appointment Provider: Kieran AJ MD Date: 0 10/22/2024 Generated for Emily arizemndi/Karina/eTransmitting on: 1 04:35 PM CDT
--- OUTSIDE RECORDS SUMMARY | 2024-11-21 06:30 | XMS_ITS ---
Author Organization [facility] filomena Address [address] [place] [address] Care Team Providers Care Silo Worker Name Role Phone Beka Wilson Primary Care Provider Unavailab Pati Martínez Unavailable [phone] REASON FOR VISIT follow up Encounters Encounter Location Date Provider Diagnosis [facility] [address] [place] [address] 11/21/2024 Pati Aj Plan Of Treatment Next Appt Details Provider Name:Pati Aj, 07/03 01:30:00 PM, [address], [place], [address], Progress Notes * Danay DOVERDOB:[birth year] (64 yo F)Acc No.[id number]:11/21/2024 Progress Notes Patient: Danay JON Appointment Provider: Kieran AJ MD :1960 A ge:64 Y S ex:Female Date:11/21/2024 Address:[address] [place], [place] [id number] Pcp:Beka Wilson Subjective: * Chief Complaints: * 1 . Follow up. * Medical History: Objective: * Vitals: Assessment: Plan: * Treatment: * Billing Information: * Visit Code: * Procedure Codes: * Electronic signature of Pati Aj MD on 04/08/2025 at 04:36 PM CDT Sign off status: Pending * Appointment Provider: Kieran AJ MD Date: 0 11/21/2024 Generated for Printi ng/Fanickig/eTransmitting on: 1 04:36 PM CDT
--- NOTE | ~2025-04-08 | XR_ITS ---
EXAMINATION: XR ankle LT min 3V, 04/08/2025 15:07 CDT HISTORY: Achilles infection, fall on 04/08/25 COMPARISON: No comparisons available. Findings: No acute fracture or malalignment. No significant degenerative changes. Soft tissues unremarkable. Impression: No acute fracture or malalignment. Reviewed, dictated and finalized at location P. Impression: No acute fracture or malalignment.
--- OUTSIDE RECORDS SUMMARY | 2025-04-08 16:35 | XMS_ITS | Encounter Summary ---
Author Organization [facility] Address [address] [place] [address] Care Team Providers Care Jewel Bearing Broacher Name Role Phone Unknown, Provider Primary Care Provider Unavaila ble Reason for Visit * Reason Comments Refill Request Encounter Details Date Type Department Care Team (Late Contact Info) Description 04/08/2025 Refill [facility] [address] [place] [address] Sandra Tabares MD [address] [facility] [address] [place] [address] Refill Request Social History Tobacco Use Types Packs/Day Years Used Date Smoking Tobacco: Never Smokeless Tobacco: Never Alcohol Use Standard Drinks/Week Comments Yes 0 (1 standard drink = 0.6 oz pur e alcohol) Occasionally PHQ-2 Answer Date Recorded Patient Health Questionnaire-2 Score 0 03/28/2023 Comments No Sex and Gender Information Value Date Recorded Sex Assigned at Female 05/10/2023 11:12 PM [employer]ORTGAGE PROTECTION SALES Legal Sex Female 11:44 AM CDT Gender Identity Female 05/10/2023 11:12 PM [employer] Sexual Orientation Straight 05/10/2023 11 :12 PM [employer] 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 Not on file Not on file Not o n file documented as of this encounter Plan of Treatment Upcoming Encounters Date Type Department Care Team (Late Contact Info) Description 12/26/2025 1:00 PM CDT Office Visit [facility] [address] [facility] [place] [address] Nadege Obrien, YARN REWINDER-INDIAN TRADER [address] [facility] [address] [place] [id number] documented as of this encounter Visit Diagnoses Not on filedocumented in this encounter Care Teams Jewel Bearing Broacher Relationship Specialty Start Date End Date Unknown, Provider PCP - General 12/25/24 documented as of this encounter
--- OUTSIDE RECORDS SUMMARY | 2025-04-08 16:35 | XMS_ITS | Patient Health Record ---
Author Organization [facility] Address [address] [place] [address] Care Team Providers Care Armature Winder Repair Name Role Phone Beka Wilson Primary Care Provider Pati Chicas Unavailable [phone] Allergies Allergen (clinical drug ingredient) Drug/Non Drug [...] Once a day; Duration: 30 day(s) Active Gabapentin 800 MG 1 tablet Orally [...] as directed Subcutaneous Active FreeStyle Ellis 3 [place] Active Levothyroxine Sodium 125 MCG 1 tablet in the morning on an empty stomach Orally Once a day; Duration: 30 day(s) Active Hydroxychloroquine Sulfate 200 MG TAKE 1 TABLET BY MOUTH TWICE DAILY WITH FOOD; Duration: 90 Active Social History Tobacco Use: Social History Observation Description Date Details (start date - stop date) Never Smoker NA - NA Household Question Answer Notes Marital status: Tobacco Control (Standard) Question Answer Notes Tobacco use: Nonsmoker Problems Problem Type SNOMED Code ICD Code Onset Dates Problem Status W/U Status Risk Notes Problem Chronic pain (26516385) Other chronic pain (G89.29) Active confirmed Problem Inflammatory arthritis (8649367) Inflammatory arthritis (M19.90) Active confirmed Problem Localized, primary osteoarthritis of the hand (623298990) 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 Vital Signs Heart Rate 63 /min 12/31/2024 Temperature 97.6 degrees Fahrenheit 12/31/2024 Blood pressure diastolic 78 mm Hg 12/31/2024 Oximetry 99 % 12/31/2024 Height-cm 170.18 cm 12/31/2024 Weight-kg 92.99 kg 12/31/2024 Height 67 in 12/31/2024 Blood pressure systolic 122 mm Hg 12/31/2024 Weight 205 lbs 12/31/2024 BMI 32.1 kg/m2 12/31/2024 Encounters Encounter Location Date Provider Diagnosis [facility] [address] [place] [address] 05/22/2024 Pati Ray Inflammatory arthrit is M19.90 ; Achilles tendinitis, left leg M76.62 ; CMC arthritis M19.049 and High risk medication use Z79.899 [facility] [address] [place] [address] 09/13/2024 Pati Ray [facility] [address] [place] [address] 12/31/2024 Pati Ray Inflammatory arthrit is M19.90 ; Achilles tendinitis, left leg M76.62 ; CMC arthritis M19.049 and High risk medication use Z79.899 [facility] [address] [place] [address] 05/30/2024 Pati Du Inflammatory arthrit is M19.90 [facility] [address] [place] [address] 11/28/2024 Pati Du Inflammatory arthrit is M19.90 [facility] [address] [place] [address] 01/15/2025 Pati Du [facility] [address] [place] [address] 03/06/2025 Pati Du Inflammatory arthrit is M19.90 Assessments Encounter Date Diagnosis (ICD Code) Assessment Notes Treatment Notes Treatment Clinical Notes Section Notes 05/30/2024 Inflammatory arthritis (ICD-10 - M19.90) 11/28/2024 Inflammatory arthritis (ICD-10 - M19.90) 05/22/2024 Inflammatory arthritis (ICD-10 - M19.90) start a medrol pack, continue plaquenil 400mg/day and gabapentin, on mobic, advised to stop ibuprofen, return in 3 months 12/31/2024 Inflammatory arthritis (ICD-10 - M19.90) R CMC injected wit 20mg of kenalog, continue plaquenil 400mg/day and gabapentin, return in 6 months 03/06/2025 Inflammatory arthritis (ICD-10 - M19.90) 12/31/2024 Achilles tendinitis, left leg (ICD-10 - M76.62) R CMC injected wit 20mg of kenalog, continue plaquenil 400mg/day and gabapentin, return in 6 months 05/22/2024 Achilles tendinitis, left leg (ICD-10 - M76.62) start a medrol pack, continue plaquenil 400mg/day and gabapentin, on mobic, advised to stop ibuprofen, return in 3 months 12/31/2024 CMC arthritis [...] Name:Pati Ray, 07/03 01:30:00 PM, [address], [place], [address], Insurance Providers Payer Name Payer Address Payer Phone Subscriber Number Group Number Insured Name Patient Relationship to Insured Coverage Start Date Coverage End Date [place] [address] [place] [id number] Weeks Self - patient is the insured Medical (General) History Medical History History ICD Code diabetes, hyperlipidemia, op ioid dependence, hypothyroidism, syncope, chronic arachnoiditis, migraine, vitamin D deficiency, sleep apnea Surgical History Surgery Date(Month/Year) back surgery, neck surgery, knee replacement, arthroscopic knee surgery, KARSTEN, loop recorder, cardiac cath, spinal stimulator, rotator cuff
--- OUTSIDE RECORDS SUMMARY | 2025-04-08 16:35 | XMS_ITS | Clinical Summary ---
Author Organization [facility] Address [address] [place] [address] Care Team Providers Care Gummed Tape Press Operator Name Role Phone Unknown, Provider Primary Care Provider Unavaila ble Source Comments [facility],non-owned Affiliates and Associated Physician Practices is amultiple site organization consisting of ambulatory clinics and hospital sitesin [place], [place], [place] and [place]. This disclosure is being madepursuant to the Care Everywhere program and may not contain all information available regarding this patient. 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 TECHNOLOGIST: Elaina Hou RT (R) (M) TISSUE DENSITY: Scattered fibroglandular elements. FINDINGS: There is no discrete abnormality. There is no mass nor microcalcification evident. ASSESSMENT: (BI-RADS 1) Negative. RECOMMENDATIONS: Followup one year. The above findings should be correlated with physical examination. A relatively nonspecific study should not preclude additional evaluation if suspicious findings are present clinically. An [employer] Certified Facility. [facility] utilize [employer] as a reminder system to notify patients of their next recommended mammograms. Edited by Trudi Nixon on 09/25/2015 9:12 AM Trudi Johns VAUDEVILLE ACTOR-VEIN PUMPER MAMMO ORDERABLES Fin al Result from Last 3 Months or Most Recently Relevant to Health Maintenance Insurance ANTHEM ANTHEM Care Teams Gummed Tape Press Operator Relationship Specialty Start Date End Date Unknown, Provider PCP - General 12/25/24
--- OUTSIDE RECORDS SUMMARY | 2025-04-08 16:35 | XMS_ITS | Patient Health Record ---
Author Organization [facility] Address [address] [place], [place] [address] Care Team Providers Care Automatic Seamer Name Role Phone Rafi Ying Unavailable [phone] , Unavailable Unavailable Allergies Allergen (clinical drug [...] W/U Status Risk Notes Problem Essential tremor (004977796) Essential tremor (G25.0) Active confirmed She has [...] aggravate this tremor as well. Problem Cervicalgia (52714730) Cervicalgia (M54.2) Active confirmed Chronic neck pain [...] Dr. Rico Montalvo Problem Cognitive function finding (191021962) Unspecified symptoms and signs involving cognitive functions [...] send me copies of them., Problem Fatigue (80412512) Other fatigue (R53.83) Active confirmed Nonspecific fatigue. Although she has had COVID on 5 occasions none of these started immediately after any of the COVID pulse. There may have been some other nonspecific viral syndrome that could have been postviral fatigue. Will check a thyroid functions B12 VIOLA and sedimentation rate. Problem Syncope and collapse (893983797) Syncope and collapse (R55) Active confirmed Nonspecific [...] have seen in the [facility] specialist in [place] who is evaluating. We also check an EEG to rule out any ictal etiology but it does not sound like seizures to me. 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
--- OUTSIDE RECORDS SUMMARY | 2025-04-08 16:35 | XMS_ITS | Clinical Summary ---
Author Organization [facility] Address [address] [place] [address] Care Team Providers Care Platform Attendant Name Role Phone Dian Montalvo MD Unavailable See Malone MD Unavailable [phone] Sandra Tabares MD Unavailable [phone] Miscellaneous, Not In File Unavailable Unava ilable Damir Gray MD Unavailable [phone] Beka Wilson DO Primary Care Provider Allergies Active Allergy Reactions Criticality Noted Date Comments Amitriptyline Hallucinations Medium 10/22/2022 Metformin Diarrhea Low 10/28/2022 Shellfish Swelling Medium 08/10/2014 Swelling Medications cetirizine (ZyrTEC) 10 mg tablet Take 1 [...] DAILY 30 tablet 5 02/05/20 25 Active aspirin (Enteric Coated Aspirin) 81 mg enteric coated tablet Take 1 tablet (81 mg total) by mouth daily Active black cohosh 540 mg capsule Take 1 capsule by mouth daily Active propranoloL (INDERAL) 10 mg tablet Take 1 tablet (10 mg total) by mouth 2 (two) times a day 03/27/20 24 Active cariprazine (Vraylar) 1.5 mg capsule capsule Take 1 capsule (1.5 mg total) by mouth daily Active Trulicity 0.75 mg/0.5 mL pen injector ADMINISTER 0.75 MG UNDER THE SKIN WEEKLY Active diclofenac DR (VOLTAREN) 75 mg EC tablet TAKE 1 TABLET BY MOUTH TWICE DAILY ONLY NEEDED FOR PAIN Active metFORMIN (GLUCOPHAGE) 500 mg tabletIndicati ons:Type 2 diabetes mellitus without complication, without long-term current use of insulin (HCC) Take 1 tablet (500 mg total) by mouth 2 (two) times a day with meals 180 tablet 2 04/02/20 25 Active metFORMIN (GLUCOPHAGE) 500 mg tabletIndicati ons:Type 2 diabetes mellitus without complication, without long-term current use of insulin (HCC) TAKE 1 TABLET(500 MG) BY MOUTH TWICE DAILY WITH MEALS 60 tablet 2 11/16/19 25 025 Discontinued Active Problems Problem Noted [...] hyperlipidemia Assessment & Plan (08/03/2023 6:02 PM FLUID DESIGNER): Pt's diabetes is not optimally controlled, and she is having nearly intolerable symptoms on Ozempic. I recommend the following: - Obtain a iFlipd Ellis 3 for closer monitoring, ordered (ask [...] sided frontal, radiates to R eye and episcopalian, has associated blurred vision, can last for [...] 10/22/2022 Assessment & Plan (08/03/2023 5:59 PM FLUID DESIGNER): I don't have records for the syncopal [...] wellbutrin 300mg daily and effexor 225mg daily Encounters Date Type Department Care Team Description 03/06/2025 12:00 PM CDT Office Visit [facility] Cardiology [address] [facility] [address] [place] [address] Ramana Arnold MD Vasovagal syncope (Primary Dx); NSVT (nonsustained ventricular tachycardia) (HCC) 03/06/2025 Orders Only [facility] Cardiology [address] [facility] [address] [place] [address] Provider, MD Raj from Last 3 Months Surgical History Surgery Date Site/Laterality Comments TOTAL KNEE ARTHROPLASTY Left HYSTERECTOMY BACK SURGERY 4 fusions SPINAL CORD STIMULATOR IMPLANT Left x2 ROTATOR CUFF REPAIR Right 2 surgeries KNEE SURGERY Bilateral 2 surgeries on left knee, 3 surgeries on right knee CERVICAL SPINE SURGERY 3 fusions Medical History Medical History Date Comments Diabetes mellitus Hyperlipidemia Thyroid disease Sleep difficulties Lack of [...] on file Legal Sex Female 7:23 PM FLUID DESIGNER Gender Identity Not on file Sexual Orientation Not on file Obstetrics History Last Filed Vital Signs Vital Sign Reading Time Taken Comments Blood Pressure 136/62 03/06/2025 12:03 PM CDT Pulse 64 03/06/2025 12:03 PM CDT Temperature 36.8 C (98.2 F) 10/08/2024 11:29 AM CDT Respiratory Rate 16 02/25/2023 12:45 AM CDT Oxygen Saturation 96% 03/06/2025 12:03 PM CDT Inhaled Oxygen Concentration - - Weight 92.1 kg (203 lb) 03/06/2025 12:03 PM CDT Height 170.2 cm (5' 7) 03/06/2025 12:03 PM CDT Body Mass Index 31.79 03/06/2025 12:03 PM CDT Plan of Treatment Health Maintenance Due [...] history exists Albumin Creatinine Ratio, Urine 10/08/2025 eGFR 10/08/2025 10/08/2024, 09/12, 02/24/2023, Additional history exists Lipid Panel 12/03/2025 12/03/2024, 09/12, 10/22/2022 Hepatitis C Screening Completed 10/10/2023 Medical Devices Implanted Type Area Gas Line Installer Device Identifier Shelf Expiration Date Model / Serial / Lot [employer] Reveal Linq Ii Implantable Hop Strainer Lnq22 - [id number] - [id number] Implanted:Qty: 1 on 01/04/2023 by See Malone MD at [facility] Implantable Loop Recorder N/A: Sternal Boarder [employer] Inc 03/20/2024 LNQ22 / [id number] / Procedures Procedure Name Priority Date/Time Associated Diagnosis Comments ELECTROCARDIOGRAM REPORT Routine 025 12:36 PM CDT Vasovagal syncope LIPID PANEL Routine 12/03/2024 12:49 PM CDT EGFR Routine 10/08/2024 12:34 PM CDT Type [...] Recently Relevant to Health Maintenance Results * Electrocardiogram Report (03/06/2025 12:36 PM CDT) Ramana Arnold MD ECG ORDERABLES Final Result * (ABNORMAL) Lipid panel (12/03/2024 12:49 PM CDT) SCRIBED Cholesterol, Total 155 30 - 199 mg/dL EXTERNAL LAB SCRIBED Triglycerides 177(A) <=149 mg/dL EXTERNAL LAB SCRIBED HDL 51 >=40 mg/dL EXTERNAL LAB SCRIBED LDL 62 <=129 mg/dL EXTERNAL LAB Scribed Non-HDL Cholesterol EXTERNAL LAB Comment:Not performed by lab SCRIBED Total Cholesterol/HDL Ratio 156 NONE EXTERNAL LAB Blood Raj Provider LAB BLOOD ORDERABLES Edit ed Result - Final EXTERNAL LAB * eGFR (10/08/2024 12:34 PM CDT) eGFR [...] CDT 10/08/2024 2:04 PM CDT Terra Leiva ALLIANCE CONSULTANT LAB BLOOD ORDERABLES Stephanie l Result Performing Organization Address [facility] de Phone Number [facility] [place] [address] * Albumin Creatinine Ratio, Urine (10/08/2024 12:34 PM CDT) Albumin Ur <12.0 mg/L Comment: Interpretive Data No reference range established. Current interpretive data was last revised 2018. Creatinine Ur 37.5 mg/dL [facility] Comment: Interpretive Data No reference range established. Current interpretive data was last revised 2018. Albumin Creatinine Ratio, Ur See Comment 1 - 29 mg/g [facility] Comment:Unable to calculate Urine 10/08/2024 12:3 4 PM CDT 10/08/2024 1:53 PM CDT Terra Leiva NP LAB URINE ORDERABLES Stephanie l Result Performing Organization Address [facility] Co de Phone Number [facility] [place] [address] * POCT hemoglobin A1c (10/08/2024 11:36 AM [...] - GENERAL ORDER DANIELLE Final Result [facility] [address] Department [place] [address] from Last 3 Months or Most Recently Relevant to Health Maintenance Insurance [employer]M MEDICARE HMO PPO MEDICARE OOS MEDICARE OOS Advance Directives For more information, please contact: [phone] * Full Code (Latest Code Status on File) Date Activated Date Inactivated Comments 01/01/2023 7:45 PM 01/05/2023 6:16 PM * Full Code Date Activated Date Inactivated Comments 10/22/2022 10:14 PM 10/25/2022 7:10 PM Care Teams Platform Attendant Relationship Specialty Start Date End Date Beka Wilson DO [address] [facility] [address] [place] [phone] (Work) PCP - General Internal Medicine 03/06/25 [place] [id number] [place] [address] Consulting Physician Pain Management 10/28/22 See Malone MD [address] [facility] [address], [place] [address] Consulting Physician Cardiology 01/05/23 Sandra Tabares MD [address] [facility] [address] [place], [place] [id number] Referring Physician Neurology 01/05/23 Miscellaneous, Not In File 01/05/23 Damir Gray MD [address] [place] [address] [address] [place] [address] Consulting Physician Neurology 01/05/23
--- OUTSIDE RECORDS SUMMARY | 2025-04-08 16:35 | XMS_ITS | Clinical Summary ---
Author Organization [employer] [facility] [address] Address [address] [place] [address] Phone Care Team Providers Care Artificial Marble Worker Name Role Phone Beka Wilson DO Primary Care Provider Allergies No known active allergies Social History Tobacco Use Types Packs/Day Years Used Date Smoking Tobacco: Never Assessed Comments Unknown Sex and Gender Information Value Date Recorded Sex Assigned at Not on file Legal Sex Female 4:01 AM PRECONSTRUCTION MANAGER Gender Identity Not on file Sexual [...] Flex Sig/CT Colonography Q 5 years 2005 RSV VACCINE (60+ or ) (1 - Risk 50-74 years 1-dose series) 2010 BREAST CANCER SCREENING 09/22/2016 09/23/2015 DIABETES HBA1C Q 6 MONTHS 04/24/2023 10/22/2022 INFLUENZA VACCINE (#1) 2025 Medical Devices Implanted Type Area Exploration Geologist Device Identifier Shelf Expiration Date Model / Serial / Lot Neuro Stimulator Neuro Stimulator [employer] PROCLAIM 3660 / / Description:Leads - 3186 NORMAL mode This model 3660 and leads of 3186 can now be scanned for any body part in NORMAL mode. No JS restrictions. Pt must have remote to turn into MRI mode or off ONLY 30 mins of scan time, no coil restrictions-ana maría 02/11/23 Loop Recorder Insurance BCBS MEDICARE Care Teams Artificial Marble Worker Relationship Specialty Start Date End Date Beka Wilson DO [address] [facility] [address] [place] [address] PCP - General Internal Medicine 06/16/17
== END 2025-04-08 14:47 | disposition home or self-care (01) ==
PROVIDERS: PCP Internal Medicine; Visit Provider Podiatrist Foot & Ankle Surgery
DX: M76.62 Achilles tendinitis, left leg (principal)
CPT/HCPCS: 73610

== ENCOUNTER 2025-04-16 16:28 | Outpatient (CLI) | payer MEDICARE, SELFPAY ==
--- OUTSIDE RECORDS SUMMARY | 2006-07-19 09:49 | XMS_ITS | Continuity of Care Document ---
Author Organization [facility] Address [address] [place] [address] [address] [place] [address] Phone Care Team Providers Care Quill Machine Operator Name Role Phone Gonzalez OD, Shon Unavailable Unavailable Procedures Procedure Date Eye Exam & Treatment Refraction Fundus Photography W/ Report Advance Directives Directive Yes / No Effective Date File Name No Information Encounters Encounter Description Practice Location Reason(s) For Visit Diagnoses Date Provider Providers Copied on Encounter [facility], [address] [place] [address] [address], [place], [place], [address], tel:[phone] [facility] No Information 6-200 7 Gonzalez OD Shon. [facility] Jed Alexander [facility], [place], [place], [facility], . tel:[phone] Referring Provider: Jacek Urias OD [facility] Veronika Adkins [facility], [place], [address]. tel:[phone] Family History Family Member Type Diagnosis Age At Onset No Information Payers Payer name Insurance type Covered libertarian ID Authoriza tion(s) No Information Social History Type Description Quantity Date Captured Comments Sex Female Smoking Status No Information Chief Complaint And Reason For Visit No Information Reason For Referral Reason For Referral No Information History Of Present Illness Encounter Date Complaint History Of Prese nt Illness No Information Functional Status Date Functional Assessmen t No Information Instructions Date Instruction Additional Infor mation No Information Assessments Type Assessment Date No Information Patient Care Teams Name Effective Dates (start - stop) Status Members No Information
--- OUTSIDE RECORDS SUMMARY | 2025-04-16 17:00 | XMS_ITS | Clinical Summary ---
Author Organization [facility] Address [address] [place] [address] Care Team Providers Care Bag Loader Name Role Phone Dian Montalvo MD Unavailable See Malone MD Unavailable [phone] Sandra Tabares MD Unavailable [phone] Miscellaneous, Not In File Unavailable Unava ilable Damir Gray MD Unavailable [phone] Beka Wilson DO Primary Care Provider Allergies [...] hyperlipidemia Assessment & Plan (08/03/2023 6:02 PM LAB SUPPORT TECHNICIAN): Pt's diabetes is not optimally controlled, and she is having nearly intolerable symptoms on Ozempic. I recommend the following: - Obtain a Expedit.us Ellis 3 for closer monitoring, ordered (ask [...] sided frontal, radiates to R eye and lutheran, has associated blurred vision, can last for [...] 10/22/2022 Assessment & Plan (08/03/2023 5:59 PM LAB SUPPORT TECHNICIAN): I don't have records for the syncopal [...] Description 03/06/2025 12:00 PM CDT Office Visit [facility] [address] [facility] [address] [place] [address] Ramana Arnold MD Vasovagal syncope (Primary Dx); NSVT (nonsustained ventricular tachycardia) (HCC) 03/06/2025 Orders Only [facility] Cardiology [address] [facility] [address] [place] [address] Provider, MD Raj from Last [...] on file Legal Sex Female 7:23 PM LAB SUPPORT TECHNICIAN Gender Identity Not on file Sexual Orientation Not on file Last Filed Vital Signs Vital Sign [...] Completed 10/10/2023 Medical Devices Implanted Type Area Nitrator Operator Device Identifier Shelf Expiration Date Model / Serial / Lot Med[employer]onic Inc Reveal Linq Ii Implantable Toll Testboard Worker Lnq22 - [id number] - [id number] Implanted:Qty: 1 on 01/04/2023 by See Malone MD at [facility] Implantable Loop Recorder N/A: Sternal Boarder [employer] 03/20/2024 LNQ22 / [id number] / Procedures Procedure Name Priority Date/Time [...] Cholesterol/HDL Ratio 156 NONE EXTERNAL LAB Blood Historical Provider LAB BLOOD ORDERABLES Edit ed Result [...] CDT 10/08/2024 2:04 PM CDT Terra Leiva GLAZE CARRIER LAB BLOOD ORDERABLES Stephanie l Result Performing Organization Address [facility] Co de Phone Number [facility] [place] [address] * Albumin Creatinine Ratio, Urine (10/08/2024 12:34 PM CDT) Albumin Ur <12.0 mg/L Comment: Interpretive Data No reference range established. Current interpretive data was last revised 2018. Creatinine Ur 37.5 mg/dL [facility] Comment: Interpretive Data No reference range established. Current interpretive data was last revised 2018. Albumin Creatinine Ratio, Ur See Comment 1 - 29 mg/g [facility] Comment:Unable to calculate Urine 10/08/2024 12:3 4 PM CDT 10/08/2024 1:53 PM CDT Terra Leiva GLAZE CARRIER LAB URINE ORDERABLES Stephanie l Result Performing Organization Address [facility] Co de Phone Number [facility] [place] [address] * POCT hemoglobin A1c (10/08/2024 11:36 AM [...] - GENERAL ORDER DANIELLE Final Result [facility] [address] Department [place] [address] from Last 3 Months or Most Recently Relevant to Health Maintenance Insurance ANTHEM MEDICARE HMO PPO MEDICARE OOS MEDICARE OOS Advance Directives For more information, please contact: [phone] * Full Code (Latest Code Status on File) Date Activated Date Inactivated Comments 01/01/2023 7:45 PM 01/05/2023 6:16 PM * Full Code Date Activated Date Inactivated Comments 10/22/2022 10:14 PM 10/25/2022 7:10 PM Care Teams Bag Loader Relationship Specialty Start Date End Date Beka Wilson DO [address] [facility] [place] [address] PCP - General Internal Medicine 03/06/25 [place] [address] [place] [address] Consulting Physician Pain Management 10/28/22 See Malone MD [address] [facility] [address] [address] Consulting Physician Cardiology 01/05/23 Sandra Tabares MD [address] [facility] [address] [place], [place] [id number] Referring Physician Neurology 01/05/23 Miscellaneous, Not In File 01/05/23 Damir Gray MD [address] [place] [address] [address] [place] [address] Consulting Physician Neurology 01/05/23
--- OUTSIDE RECORDS SUMMARY | 2025-04-16 17:00 | XMS_ITS | Clinical Summary ---
Author Organization [employer] [facility] [address] Address [address] [place] [address] Phone Care Team Providers Care Window Framer Name Role Phone Beka Wilson DO Primary Care Provider Allergies No known active allergies Social History Tobacco Use Types Packs/Day Years Used Date Smoking Tobacco: Never Assessed Comments Unknown Sex and Gender Information Value Date Recorded Sex Assigned at Not on file Legal Sex Female 4:01 AM LEAD BASED PAINT TECHNICIAN Gender Identity Not on file Sexual [...] (#1) 2025 Medical Devices Implanted Type Area Retread Technician Device Identifier Shelf Expiration Date Model / Serial / Lot Neuro Stimulator Neuro Stimulator [facility] PROCLAIM 3660 / / Description:Leads - 3186 NORMAL mode This model 3660 and leads of 3186 can now be scanned for any body part in NORMAL mode. No JS restrictions. Pt must have remote to turn into MRI mode or off ONLY 30 mins of scan time, no coil restrictions-ana maría 02/11/23 Loop Recorder Insurance BCBS MEDICARE Care Teams Window Framer Relationship Specialty Start Date End Date Beka Wilson DO [address] [facility] [address] [place] [address] PCP - General Internal Medicine 06/16/17
--- OUTSIDE RECORDS SUMMARY | 2025-04-16 17:00 | XMS_ITS | Clinical Summary ---
Author Organization [facility] Address [facility] [place] [address] Care Team Providers Care Last Putter Away Name Role Phone Belia Casey Primary Care Provider [phone] Non-Staff, Provider Unavailable Unavailable Allergies Active Allergy Reactions Criticality Noted Date Comments Amitriptyline Hallucinations 02/21/2025 Shellfish Protein-Containing Drug Products Hives,Throat swelling 02/21/2025 Medications aspirin EC 81 MG tablet Take 1 tablet (81 mg total) by mouth daily. Active buPROPion XL (WELLBUTRIN XL) 150 MG 24 hr tablet Active Black Cohosh 540 MG Cap Take 1 capsule by mouth daily. Active cyclobenzaprin e (FLEXERIL) 10 MG tablet 5 Active venlafaxine XR (EFFEXOR-XR) 150 MG 24 hr capsule Take 1 capsule (150 mg total) by mouth daily. 5 Active rosuvastatin (CRESTOR) 20 MG tablet Take 1 tablet (20 mg total) by mouth daily. Active propranolol (INDERAL) 10 MG tablet Take 1 tablet (10 mg total) by mouth 2 (two) times daily. 5 Active oxybutynin XL (DITROPAN-XL) 10 MG 24 hr tablet 5 Active TRULICITY 0.75 MG/0.5ML injection ADMINISTER 0.75 MG UNDER THE SKIN WEEKLY Active levothyroxine (SYNTHROID) 125 MCG tablet TAKE 1 TABLET(125 MCG) BY MOUTH DAILY Active gabapentin (NEURONTIN) 800 MG tablet Take 1 tablet (800 mg total) by mouth 3 (three) times daily. Active linaCLOtide (LINZESS) 145 MCG capsuleIndicat ions:Chronic constipation,C olitis Take 1 capsule (145 mcg total) by mouth every morning before breakfast. Take on empty stomach at least 30 minutes prior to the first meal of the day. Swallow whole. Do not open capsule or chew. 30 capsule 3 5 Active predniSONE (DELTASONE) 10 mg tablet Take 1 tablet (10 mg total) by mouth daily for 38 days. Day 1 through 7 take 40 mg Day 8 through 10 take 20 mg Day 11 through 12 take 10 mg Day 13 through 14 take 5 mg 38 tablet 025 Additional Information Patient not taking.Reported on 03/28/2025 LINZESS 72 MCG capsule Take 1 capsule (72 mcg total) by mouth daily. 025 Discontinu ed(Dose adjustment ) polyethylene glycol-electro lytes (NULYTELY) 420 g solutionIndica tions:Chronic constipation,C olitis Take 4,000 mLs by mouth once for 1 dose. 4000 mL 5 025 Active Problems Problem Noted Date Diagnosed Date Colitis 04/03/2025 Chronic constipation 04/03/2025 Encounters Date Type Department Care Team Description 04/08/[address], [address] [place] [phone] Damir Rayo MD Prior Authorization (Colonoscopy [id number]) 04/03/2025 Orders Only [address] [place] [address] Damir Rayo MD 03/28/2025 1:40 PM CDT Office Visit [address] [place] [address] Sofía Emmanuel NP New Patient (Referral gastroenteritis/colit is ) 03/28/2025 Travel 03/01/2025 [facility] [address] [facility], [address] [place] [phone] Jim Garza MD Appointment Request 02/22/2025 [facility] [address] [facility], [address] [place] [phone] Jim Garza MD Appointment Request 02/22/2025 [facility] [address], [address] [place] [phone] Jim Garza MD Error 02/21/2025 3:29 PM CDT - 02/21/2025 7:45 PM CDT Emergency [facility] [place] [address] Mary Plata PA Abdominal Pain Discharge Disposition: Home or Self Care (Routine Discharge) 02/21/2025 Travel from Last 3 Months Social History Tobacco Use Types Packs/Day Years Used Date Smoking Tobacco: Never Smokeless Tobacco: Never Tobacco Cessation:Counseling Given: No Alcohol Use Standard Drinks/Week Comments Never 0 (1 standard drink = 0.6 oz pur e alcohol) Comments No Sex and Gender Information Value Date Recorded Sex Assigned at Female 03/14/2025 10:14 AM CDT Legal Sex Female 11:38 AM CDT Gender Identity Female 03/28/2025 1:35 PM CDT Sexual Orientation Not on file Last Filed Vital Signs Vital Sign Reading Time Taken Comments Blood Pressure 134/84 03/28/2025 1:35 PM CDT Pulse 78 03/28/2025 1:35 PM CDT Temperature 37.7 C (99.8 F) 03/28/2025 1:35 PM CDT Respiratory Rate 20 03/28/2025 1:35 PM CDT Oxygen Saturation 98% 03/28/2025 1:35 PM CDT Inhaled Oxygen Concentration - - Weight 92.1 kg (203 lb) 03/28/2025 1:35 PM CDT Height 170.2 cm (5' 7) 03/28/2025 1:35 PM CDT Body Mass Index 31.79 03/28/2025 1:35 PM CDT Plan of Treatment Upcoming Encounters Date Type Department Care Team (Latest Contact Info) Description 05/16/2025 8:00 AM POWER REGULATOR Appointment [facility] [place] [address] Dell Ferrer MD COUNTS INCLUDE [address] AT [facility] [address] [place] [address] 05/16/2025 8:30 AM POWER REGULATOR Appointment [place] [address] Dell Ferrer MD COUNTS INCLUDE 234 [facility]ED[address] AT THE [facility] [address] [place] [address] 05/21/2025 9:30 AM POWER REGULATOR Hospital Encounter [facility] [place] [address] Damir Rayo MD 3 [facility] [address] [address] 05/21/2025 9:30 AM POWER REGULATOR - 05/21/2025 10:00 AM POWER REGULATOR Surgery [facility] [place] [place] [address] Damir Rayo MD [address] [place] [address] [address] COLONOSCOPY 06/18/2025 1:40 PM POWER REGULATOR Office Visit [facility] - [facility] [address] [facility] [address] [place] [phone] Sofía Emmanuel, WILLIAM 3 [facility] [address] [place] [address] Scheduled Procedures Name Priority Associated Diagnoses Date/Ti me COLONOSCOPY Colitis Chronic constipation 05/21/2025 9:30 AM POWER REGULATOR Health Maintenance Due Date Last Done Comments Colorectal Cancer Screening Colonoscopy (10 Years) 1960 Annual Physical 1963 Hepatitis C 1978 DTaP, Tdap and Td Vaccines ( 1 - Tdap) 1979 Pneumococcal Vaccine: 50+ Years (1 of 1 - PCV) 2010 Zoster Vaccines (1 of 2) 2010 Mammogram Screening 09/22/2017 09/23/2015 PHQ-2 (Physician [place]) 06/13/2024 COVID-19 Vaccine (3 - 2024-2 6 season) 2025 09/23/2020, 08/28/2020 Influenza Adult (#1) 2025 04/04/2020 RSV Immunization or 60+ Years (1 - 1-dose 75+ series) 2035 Hepatitis A Vaccines Aged Out No long er eligible based on patient's age to complete this topic Meningococcal B Vaccine Aged Out No l onger eligible based on patient's age to complete this topic Meningococcal Vaccine Aged Out No ysabel chastity eligible based on patient's age to complete this topic RSV Immunizations Under 20 Months Aged Out No longer eligible b ased on patient's age to complete this topic Goals Goal Patient Goal Type Associated Problems Recent Progress Patient-Stated? Author Autogenera melani Goal Care Plan Autogenerated Problem No Niru Mckoy, MILLINERY WORKER Procedures Procedure Name Priority Date/Time Associated Diagnosis Comments CT ABD+PEL W CON STAT 02/21/2025 4:57 PM CDT MAGNESIUM STAT 02/21/2025 3:37 PM CDT LIPASE STAT 02/21/2025 3:37 PM CDT COMPREHENSIVE METABOLIC PANEL STAT 02/21/2025 3:37 PM CDT CBC W/DIFF AUTOMATED STAT 02/21/2025 3:37 PM CDT HC URINALYSIS AUTO W/O MICRO STAT 02/21/2025 3:36 PM CDT from Last 3 Months Results * CT ABD+PEL W IV CON ONLY (02/21/2025 4:57 PM CDT) Anatomical Region Laterality Modality Abdomen Computed Tomogra phy 02/21/2025 5:44 PM CDT Impressions 02/21/2025 5:52 PM CDT IMPRESSION: 1. There is a segmental area of colonic inflammation involving the splenic flexure, descending colon, and a portion of the sigmoid colon. This could be infectious or inflammatory. 2. No evidence of perforation or abscess formation. 3. No bowel obstruction. 4. Colonic diverticulosis. 5. Probable mild hepatic steatosis. Referred By: Interpreted By: Beka Denise DO, 02/21/2025 5:44 PM Narrative 02/21/2025 5:52 PM CDT [address] [address] EXAMINATION: CT abdomen/pelvis with contrast HISTORY: Left upper abdominal pain. Left flank pain. Diarrhea. COMPARISON: Diarrhea. TECHNIQUE: Axial CT images of the abdomen and pelvis after the uneventful intravenous administration of 100 mL of Isovue-370 given through the right antecubital fossa. Sagittal and coronal reformatted image sets. A dose lowering technique was used for this procedure, which may include, but is not limited to, dose reduction technique, automated exposure control, the use of degenerative reconstruction, and ALARA/image gently techniques. FINDINGS: Lower chest: The partially included lung bases are clear. The heart is normally sized. Upper abdomen: The liver is normal in size and contour. No evidence of hepatic mass. Probable mild hepatic steatosis. No visible gallstones. No evidence of acute cholecystitis. No biliary ductal dilatation. No acute-appearing pancreatic abnormalities. The spleen is normally sized. No evidence of splenic mass. No adrenal masses. Kidneys: The kidneys enhance symmetrically. No hydronephrosis or nephrolithiasis. There is no urolithiasis. Vascular: The abdominal aorta is normal caliber. There is mild atherosclerotic vascular disease. Bowel/mesentery: No ascites or free intraperitoneal air. There is no bowel obstruction. There is a segmental area of colonic inflammation involving the splenic flexure, descending colon, and a portion of the sigmoid colon. This could be infectious or inflammatory. No evidence of perforation or abscess formation. There is colonic diverticulosis. The appendix is normal caliber. No evidence of acute appendicitis. No acute appearing gastric abnormalities. No herniated bowel loops. Pelvis: No bladder wall thickening. No free pelvic fluid. The uterus is surgically absent. No evidence of adnexal mass. There are bilateral fat-containing inguinal hernias. Other findings: None. Osseous: There are multilevel degenerative changes within the spine and the pelvis. There is surgical hardware within the lumbar spine. No acute osseous abnormalities. Procedure Note Beka Denise, - 02/21/[address] [address] EXAMINATION: CT abdomen/pelvis with contrast HISTORY: Left upper abdominal pain. Left flank pain. Diarrhea. COMPARISON: Diarrhea. TECHNIQUE: Axial CT images of the abdomen and pelvis after the uneventful intravenousadministration of 100 mL of Isovue-370 given through the right antecubitalfossa. Sagittal and coronal reformatted image sets. A dose lowering technique was used for this procedure, which may include,but is not limited to, dose reduction technique, automated exposurecontrol, the use of degenerative reconstruction, and ALARA/image gentlytechniques. FINDINGS: Lower chest: The partially included lung bases are clear. The heart isnormally sized. Upper abdomen: The liver is normal in size and contour. No evidence ofhepatic mass. Probable mild hepatic steatosis. No visible gallstones.No evidence of acute cholecystitis. No biliary ductal dilatation. Noacute-appearing pancreatic abnormalities. The spleen is normally sized.No evidence of splenic mass. No adrenal masses. Kidneys: The kidneys enhance symmetrically. No hydronephrosis ornephrolithiasis. There is no urolithiasis. Vascular: The abdominal aorta is normal caliber. There is mildatherosclerotic vascular disease. Bowel/mesentery: No ascites or free intraperitoneal air. There is nobowel obstruction. There is a segmental area of colonic inflammationinvolving the splenic flexure, descending colon, and a portion of thesigmoid colon. This could be infectious or inflammatory. No evidence ofperforation or abscess formation. There is colonic diverticulosis. Theappendix is normal caliber. No evidence of acute appendicitis. No acuteappearing gastric abnormalities. No herniated bowel loops. Pelvis: No bladder wall thickening. No free pelvic fluid. The uterus issurgically absent. No evidence of adnexal mass. There are bilateralfat-containing inguinal hernias. Other findings: None. Osseous: There are multilevel degenerative changes within the spine andthe pelvis. There is surgical hardware within the lumbar spine. No acuteosseous abnormalities. IMPRESSION: 1. There is a segmental area of colonic inflammation involving thesplenic flexure, descending colon, and a portion of the sigmoid colon.This could be infectious or inflammatory. 2. No evidence of perforation or abscess formation. 3. No bowel obstruction. 4. Colonic diverticulosis. 5. Probable mild hepatic steatosis. Referred By: Interpreted By: Beka Denise DO, 02/21/2025 5:[address] Final Result * (ABNORMAL) COMPREHENSIVE METABOLIC PANEL (02/21/2025 3:37 PM CDT) GLUCOSE 154(H) 70 - 99 MG/DL 02/21/2025 4:[address] [facility] BUN 16 7 - 18 MG/DL 02/21/2025 4:[address] [facility] CREATININE S/P/B 0.94 0.55 - 1.02 MG/DL 02/21/2025 4:[address] [facility] SODIUM S/P/B 139 136 - 145 MMOL/L 02/21/2025 4:[address] [facility] POTASSIUM S/P/B 4.0 3.5 - 5.1 MMOL/L 02/21/2025 4:[address] [facility] CHLORIDE S/P/B 105 97 - 115 MMOL/L 02/21/2025 4:[address] [facility] CO2 29.0 21 - 32 MMOL/L 02/21/2025 4:[address] [facility] CALCIUM S/P/B 8.9 8.5 - 10.1 MG/DL 02/21/2025 4:[address] [facility] BILIRUBIN TOTAL S/P/B 0.3 0.2 - 1.2 MG/DL 02/21/2025 4:[address] [facility] Comment: THIS ASSAY IS NOT RECOMMENDED FOR PATIENTS UNDERGOING TREATMENT WITH ELTROMBOPAG DUE TO THE POTENTIAL FOR FALSELY ELEVATED RESULTS. TOTAL PROTEIN S/P/B 6.9 6.4 - 8.2 G/DL 02/21/2025 4:[address] [facility] ALBUMIN S/P/B 3.4 3.4 - 5.0 G/DL 02/21/2025 4:[address] [facility] AST 13(L) 15 - 37 U/L 02/21/2025 4:[address] [facility] ALT 21 14 - 55 U/L 02/21/2025 4:[address] [facility] ALKALINE PHOSPHATASE S/P/B 72 50 - 136 U/L 02/21/2025 4:[address] [facility] ANION GAP 5.0 2 - 10 MMOL/L 02/21/2025 4:[address] [facility] BUN CREATININE RATIO 17.0 6 - 26 02/21/2025 4:[address] [facility] A/G RATIO 1.0 1.0 - 2.0 RATIO 02/21/2025 4:[address] [facility] GFR ESTIMATE 68(L) >90 ML/MIN/1.7 3 M2 02/21/2025 4:[address] [facility] Comment: NOTE: eGFR is not calculated for patients <18 years of age or gender unknown. This is an estimated GFR calculation using the new CKD EPI creatinine equation without race and so does not require a correction factor for race. This estimated GFR should not be used for calculating drug doses. 02/21/2025 3:37 PM CDT [facility] Final Result [facility] [address] [place] [address], [place] [phone] * (ABNORMAL) CBC W/DIFF AUTOMATED (02/21/2025 3:37 PM CDT) WBC 8.55 4.5 - 11.0 x10'3/uL 02/21/2025 3:[address] [facility] RBC 4.48 4.20 - 5.40 x10'6/uL 02/21/2025 3:[address] [facility] HGB 12.2 12.0 - 16.0 G/DL 02/21/2025 3:[address] [facility] HCT 36.5(L) 38.0 - 48.0 % 02/21/2025 3:[address] [facility] MCV 81.5 81.0 - 99.0 FL 02/21/2025 3:[address] [facility] MCH 27.2 27.0 - 31.0 PG 02/21/2025 3:[address] [facility] MCHC 33.4 32.0 - 36.0 G/DL 02/21/2025 3:[address] [facility] RDW 13.0 11.5 - 14.5 % 02/21/2025 3:[address] [facility] PLT 322 130 - 400 x10'3/uL 02/21/2025 3:[address] [facility] MPV 9.3 9.3 - 12.2 FL 02/21/2025 3:[address] [facility] DIFFERENTIAL TYPE AUTOMATED DIFFERENTIAL 02/21/2025 3:[address] [facility] NEUTROPHILS % 54.9 % 02/21/2025 3:[address] [facility] LYMPHOCYTES % 35.2 % 02/21/2025 3:[address] [facility] MONOCYTES % 6.8 % 02/21/2025 3:[address] [facility] EOSINOPHILS 2.3 % 02/21/2025 3:[address] [facility] BASOPHILS 0.6 % 02/21/2025 3:[address] [facility] IMMATURE GRANS % 0.2 % 02/22/20 3:[address] [facility] ABS. NEUTROPHILS 4.69 1.80 - 7.70 x10'3/uL 02/21/2025 3:[address] [facility] ABS. LYMPHOCYTES 3.01 1.00 - 4.80 x10'3/uL 02/21/2025 3:[address] [facility] ABS. MONOCYTES 0.58 0.24 - 0.86 x10'3/uL 02/21/2025 3:[address] [facility] ABS. EOSINOPHILS 0.20 0.04 - 0.36 x10'3/uL 02/21/2025 3:[address] [facility] ABS. BASOPHILS 0.05 0.01 - 0.08 x10'3/uL 02/21/2025 3:[address] [facility] ABS. IMMATURE GRANULOCYTES 0.02 0.00 - 0.49 x10'3/uL 02/21/2025 3:[address] [facility] 02/21/2025 3:37 PM CDT [facility] Final Result [facility] [address] [place] [address], [place] [phone] * MAGNESIUM (02/21/2025 3:37 PM CDT) MAGNESIUM 1.9 1.8 - 2.4 MG/DL 02/21/2025 4:[address] [facility] 02/21/2025 3:37 PM CDT [facility] Final Result [facility] [address] [place] [address], [place] [phone] * LIPASE (02/21/2025 3:37 PM CDT) LIPASE 62 13 - 75 UNITS/L 02/21/2025 4:[address] [facility] 02/21/2025 3:37 PM CDT [facility] Final Result [facility] [address] [place] [address], [place] [phone] * URINALYSIS (02/21/2025 3:36 PM CDT) SPECIMEN TYPE URINE CLEAN CATCH 02/21/2025 3:[address] [facility] COLOR (U) LIGHT YELLOW 02/21/2025 4:[address] [facility] TRANSPARENCY CLEAR 02/21/2025 4:[address] [facility] SPECIFIC GRAVITY (U) 1.021 1.001 - 1.030 02/21/2025 4:[address] [facility] U PH 6.5 5.0 - 9.0 02/21/2025 4:[address] [facility] LEUKOCYTES (U) NEGATIVE NEGATIVE 02/21/2025 4:[address] [facility] NITRITES NEGATIVE NEGATIVE 02/21/2025 4:[address] [facility] PROTEIN RANDOM (U) NEGATIVE <30 MG/DL 02/21/2025 4:[address] [facility] GLUCOSE (U) NORMAL NORMAL MG/DL 02/21/2025 4:[address] [facility] KETONES MG/DL (U) NEGATIVE NEGATIVE MG/DL 02/21/2025 4:[address] [facility] UROBILINOGEN NORMAL NORMAL MG/DL 02/21/2025 4:[address] [facility] BILIRUBIN (U) NEGATIVE NEGATIVE MG/DL 02/21/2025 4:[address] [facility] BLOOD (U) NEGATIVE NEGATIVE 02/21/2025 4:[address] [facility] URINE SPECIMEN OBTAINED BY CLEAN CATCH PROCEDURE / Unknown 02/21/2025 3:36 PM CDT us [facility] URINE ORDERABLES Final Resul t [facility] [address] [place] [address], [place] [phone] from Last 3 Months Additional Health Concerns Active Problems Noted Date Diagnosed Date Autogenerated Problem 04/03/2025 Insurance Care Teams Last Putter Away Relationship Specialty Start Date End Date Belia Casey FNP [facility] [address] [place] [address] PCP - General CLINICAL NURSE SPECIALIST 02/25/25 Non-Staff, Provider UNKNOWN PHYSICIAN SPECIALTY 02/25/25
--- OUTSIDE RECORDS SUMMARY | 2025-04-16 17:00 | XMS_ITS | Clinical Summary ---
Author Organization [facility] Address [address] [place] [address] Care Team Providers Care Patient Services Coordinator Name Role Phone Unknown, Provider Primary Care Provider Unavaila ble Source Comments [facility],non-owned Affiliates and Associated Physician Practices is amultiple site organization consisting of ambulatory clinics and hospital sitesin [place], [place], [place] and [place]. This disclosure is being madepursuant to the Care Everywhere program and may not contain all information available regarding this patient. Last updated 18.[facility] Adrenaline Mobility Allergies Active Allergy Reactions Criticality Noted Date Comments Amitriptyline Psychiatric Medium 10/22/2022 Metformin Diarrhea Low 10/28/2022 Shellfish Swelling Medium 08/10/2014 Swelling Medications * Be aware that medications may not be up to date on this document. Alwaysverify current medications with the patient. cetirizine (ZyrTEC) 10 MG tablet Take 1 (one) tablet by mouth once daily 03/15/20 23 Active levothyroxine (Synthroid) 125 MCG tablet Take 1 (one) tablet by mouth once daily 12/18/19 23 Active gabapentin (Neurontin) 800 MG tablet Take 1 (one) tablet by mouth 4 times daily as needed 12/14/19 23 Active meloxicam (Mobic) 15 MG tablet Take 1 (one) tablet by mouth once daily 03/26/20 23 Active aspirin EC (Ecotrin) 81 MG tablet Take 1 (one) tablet by mouth once daily 12/14/19 23 Active buPROPion XL 24hr (Wellbutrin-X L) 150 MG tablet Take 1 (one) tablet by mouth every morning 03/08/20 24 Active Trulicity 1.5 MG/0.5ML injection Inject 1.5 (one and one-half) mg subcutaneously every 7 days Active hydroxychloro quine (Plaquenil) 200 MG tablet Take 1 (one) tablet by mouth once daily Active metFORMIN (Glucophage) 500 MG tablet Take 1 (one) tablet by mouth 2 times daily with morning and evening meal 01/31/20 24 Active rosuvastatin (Crestor) 20 MG tablet Take 1 (one) tablet by mouth at bedtime 12/20/19 24 Active midodrine (Proamatine) 5 MG tablet TAKE 1 TABLET BY MOUTH THREE TIMES DAILY BEFORE MEALS 270 tablet 3 06/25/19 25 Active Vraylar 1.5 MG capsule Take 1 (one) capsule by mouth at bedtime 12/06/19 25 Active diclofenac sodium EC (Voltaren) 75 MG tablet Take 1 (one) tablet by mouth 2 times daily 12/04/19 25 Active Linzess 72 MCG capsule Take 1 (one) capsule by mouth once daily 11/02/19 25 Active linaGLIPtin (Tradjenta) 5 MG tablet Take 1 (one) tablet by mouth once daily 10/09/19 25 Active metFORMIN (Glucophage) 1000 MG tablet Take 1 (one) tablet by mouth 2 times daily 12/10/19 25 Active venlafaxine XR 24hr (Effexor XR) 150 MG capsule Take 1 (one) capsule by mouth daily with breakfast 12/24/19 25 Active estradiol (Estrace) 1 MG tablet Take 1 (one) tablet by mouth once daily Active guanFACINE (Tenex) 1 MG tabletIndicat ions:Autonomi c dysfunction,A utonomic neuropathy Take 1 (one) tablet by mouth at bedtime 90 tablet 4 12/26/19 25 Active propranolol (Inderal) 10 MG tablet TAKE 1 TABLET BY MOUTH TWICE DAILY 180 tablet 3 04/09/20 25 Active propranolol (Inderal) 10 MG tablet Take 1 (one) tablet by mouth 2 times daily 120 tablet 5 03/27/20 24 2024 Discontinued Active Problems Problem Noted Date Diagnosed [...] Type Department Care Team Description 04/08/2025 Refill [facility] [address] [id number] Sandra Tabares MD Refill Request from Last [...] Sex Assigned at Female 05/10/2023 11:12 PM [facility] Legal Sex Female 11:44 AM CDT Gender Identity Female 05/10/2023 11:12 PM [facility] Sexual Orientation Straight 05/10/2023 11 :12 PM [employer] 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 Not on file Not on file Not [...] Description 12/26/2025 1:00 PM CDT Office Visit [facility] [address] [facility] [address] [place] [address] Nadege Obrien, SCRAP IRON CUTTER-MICROFILM CAMERA OPERATOR [address] [facility] [address] [place] [id number] Health Maintenance Due Date Last Done Comments COLOGUARD (AGES 45-75) - COL ON CA SCREENING 1960 COLON MONITORING 1960 COLONOSCOPY - COLON CA SCREENING 1960 CT COLONOGRAPHY - COLON CA SCREENING 1960 Colorectal Cancer Screening 1960 FIT - COLON CA SCREENING 1960 FLEX SIG - COLON CA SCREENING 1960 HIV SCREENING 1975 HEPATITIS C SCREENING 07/02/1978 DIABETES-SERUM CREATININE 1978 DTAP/TDAP/TD VACCINES (1 - Tdap) 1979 PNEUMOCOCCAL VACCINE 50+ (1 of 2 - PCV) 1979 ZOSTER VACCINE (1 of 2) 2010 MAMMOGRAM 09/22/2017 09/23/2015 DIABETES RETINOPATHY SCREENING 03/27/2024 DIABETES-FOOT EXAM WITH MONOFILAMENT 03/27/2024 DIABETES-HGB A1C 03/27/2024 DEPRESSION SCREENING 06/13/2024 03/28/2023 DIABETES - URINE PROTEIN SCREENING 06/13/2024 MEDICARE AWV CALENDAR YEAR 2024 COVID-19 VACCINE (1 - 2023-2 5 season) 2025 INFLUENZA VACCINE (#1) 2025 Respiratory Syncytial Virus (RSV) Vaccine Pt: or over 60 yrs (1 - 1-dose 75+ series) 2035 HEPATITIS B VACCINE Aged Out No longe r eligible based on patient's age to complete this topic HIB VACCINE Aged Out No longer eligi ble based on patient's age to complete this topic HPV VACCINE Aged Out No longer eligi ble based on patient's age to complete this topic MENINGOCOCCAL (Group B) VACC INE SHARED DECISION-MAKING Aged Out No longer eligibl e based on patient's age to complete this topic MENINGOCOCCAL GROUPS A/C/Y/W VACCINE Aged Out No longer eligible b ased [...] if suspicious findings are present clinically. An [employer] Certified Facility. [facility] Centers utilize [employer] as a reminder system to notify patients of their next recommended mammograms. Edited by Trudi Nixon on 09/25/2015 9:12 AM Trudi Johns SCRAP IRON CUTTER-MICROFILM CAMERA OPERATOR MAMMO ORDERABLES Fin al Result from Last 3 Months or Most Recently Relevant to Health Maintenance Insurance ANTHEM ANTHEM Member Subscriber Plan / Payer (Ef fective 2022-Present) Name:Desi Dover Relation to Subscriber:Self Name:DESI DOVER Payer ID:[id number] (NAIC) Group ID:[id number] Type:Medicare-Managed Care Address: [address] [place] [address] Care Teams Patient Services Coordinator Relationship Specialty Start Date End Date Unknown, Provider PCP - General 12/25/24
[2025-04-16 17:23] LABS: Alanine Aminotransferase 28 U/L (6-35); Albumin Level 4.4 g/dL (3.5-5.1); Alkaline Phosphatase 73 U/L (38-126); Anion Gap 7 mmol/L (4-12); Aspartate Amino Transferase 30 U/L (14-36); Bilirubin,Total 0.4 mg/dL (0.2-1.3); Blood Urea Nitrogen 14 mg/dL (7-17); Calcium 9.4 mg/dL (8.4-10.2); Carbon Dioxide 28 mmol/L (22-30); Chloride 99 mmol/L (98-107); Estimated Glomerular Filt Rate > 60; Glucose 117 mg/dL (65-110); Potassium 4.4 mmol/L (3.4-5.0); Sodium 134 mmol/L (137-145); Total Protein 7.2 g/dL (6.3-8.2)
[2025-04-16 19:04] LABS: Hemoglobin A1C 7.5 % (<5.7)
== END 2025-04-16 16:29 | disposition home or self-care (01) ==
PROVIDERS: PCP Internal Medicine; Visit Provider Podiatrist Foot & Ankle Surgery
DX: E11.49 Type 2 diabetes mellitus with other diabetic neurological complication (principal)
CPT/HCPCS: 36415; 80053; 83036

== ENCOUNTER 2025-04-24 02:08 | Day surgery (SDC) | payer MEDICARE, SELFPAY ==
--- NOTE | 2025-04-18 09:29 | SUR.PREOP ---
[facility] has started construction of its new state of the art ER which will open Spring 2026. With this, we anticipate parking may be a challenge for some our surgical patients and families. Parking spaces are limited but are available for all Surgical, obstetrics, and ER patients sharing this lot. If you arrive and find you are having a hard time finding a parking space, please note that we understand the challenges, please drive around the hospital and park near Hospital Entrance 1. When you enter this entrance, you can ask a volunteer to direct or take you back to the surgical waiting area to check in. We appreciate everyone?s understanding of these expected challenges while we build for your future. Report to the Outpatient Waiting Room, entrance under the green pavilion located off [address], at time _11AM_ on date _04/24/25_. Planned Procedure Time: _1PM__.? Time changes happen often and if your time is changed the preop area will call you the afternoon before. - You and your visitor will be asked to self-screen and do not enter if you have any COVID symptoms. Please call surgeon if you need to reschedule. - A mask is optional within the hospital at this time. Patients may have clear liquids (water, carbonated beverages, clear teas, apple juice) until 3 hours prior to surgery with a maximum of 20 ounces. - No food from midnight until time of surgery and no smoking, or chewing tobacco (or any form of nicotine). No chewing gum, candy or mints. Take only the following medications with a SIP of water on the morning of surgery: _levothyroxine, propranolol, venlafaxine_(if neededGabapentin)._ DO NOT STOP ANY OF YOUR OTHER PRESCRIPTION MEDICATIONS PRIOR TO SURGERY EXCEPT THE FOLLOWING Hold all vitamins and supplements for 3 days per anesthesiologist. Medications to discontinue per physician __Hold Vitamin D for three days and Aspirin 81mg for 5 days per the surgeon___ Date to take last dose of vitamin__04/20/25 and Aspirin 04/18/25 Please no make-up, nail saudi arabian, hairspray, perfume, deodorant, or body powder the day of surgery.? No jewelry (including any body piercings) or valuables the day of surgery, leave them at home.? Please take a shower or bath the night before, or the morning of, surgery with an antibacterial soap.? Wear comfortable, loose fitting clothing.? - Jewelry must be removed prior to entering the operating room.? Rings and piercings that are not removed may be cut off. - The hospital will not accept responsibility for valuables.? - Please leave all valuables, including medications, at home the day of surgery. If you are going home after surgery, a licensed bicycle taxi driver must drive you home.? - NO public transportation without another adult if you receive anesthesia. - We recommend that an adult stay with you for 24 hours following discharge. - We also recommend that you do not drive, make important decision, drink alcoholic beverages, or take any drugs that were not prescribed by your health care provider for at least 24 hours after your discharge time. Follow any additional instructions given to you from your surgeon. Telephone instructions given to __Estefany__and asked if any additional questions and then verbalized understanding. Patient advised to call surgeon office or pre surgery nurse liaison [phone] if any additional questions.
[2025-04-18 09:51] VITALS: BMI 31.6
[2025-04-24] VITALS (13 sets, daily range): BP systolic 100–150; BP diastolic 52–85; PULSE 61–85; RESP 10–21; TEMP 36.4–36.6; O2SAT 93–99; BMI 31.4
--- NOTE | ~2025-04-24 | XR_ITS ---
EXAMINATION: XR surgery orthopedic DATE: 04/24/2025 14:22 INDICATION: Repair of a ruptured left Achilles tendon TECHNIQUE: Single lateral image of the left calcaneus was obtained procedure performed by Dr. Byrne. Radiologist was not present for the imaging or procedure. The amount of fluoroscopy time used during this procedure was 0.1 minutes. The dose area product was 0.227 mGym^2. COMPARISON: None. FINDINGS: Small amount of likely postoperative soft tissue gas along the cephalad aspect of the posterior tuberosity of the left calcaneus some overlying bandaging material. No fractures. IMPRESSION: 1. Fluoroscopy utilized during reported left Achilles tendon repair. See procedure note for further detail. Reviewed, dictated and finalized at location A. MAKING SUPERVISOR IMPRESSION: 1. Fluoroscopy utilized during reported left Achilles tendon repair. See proced ure note for further detail.
[2025-04-24] MEDS: LACTATED RINGERS 1,000 ML 30 ML IV CONT ×2 (11:45→14:41)
--- NOTE | 2025-04-24 11:56 | WPDANESEPPF ---
Anes - Initial Pre Proc Eval Procedure: Operation Date: 04/24/25 13:00 Proposed Procedures p Repair of Achilles Tendon Rupture Left Leg, Retrocalcaneal Exostectomy with Detachment/Reattachment of Achilles Tendon Left Foot - Artemio Byrne Jr., CARLOS A Date/Time: 04/24/25 11:56 Surgeon: Artemio Byrne Jr., CARLOS A Pre Op Diagnosis: achilles tendon rupture left leg Patient Data Age: 64 Gender: F Height: 1.7 m Weight: 91.8 kg Allergies Allergy/AdvReac Type Severity Reaction Status Date / Time shellfish derived Allergy Unknown Anaphylaxis Verified 04/24/25 11:35 amitriptyline Allergy Hallucinati Verified 04/24/25 11:35 ons Home Medications ?Medication ?Instructions ?Recorded ?Confirmed ?Type aspirin 81 mg tablet,delayed 81 mg PO DAILY 05/04/19 04/24/25 History release (Marjorie Low Dose Aspirin) blood sugar diagnostic (OneTouch #100 ea 03/31/21 02/18/25 Rx Verio test strips) gabapentin 800 mg tablet 800 mg PO TID PRN pain 09/09/22 04/24/25 History venlafaxine 150 mg See Rx Instructions .Route 11/01/22 04/24/25 Rx capsule,extended release 24 hr .COMPLEX #90 caps levothyroxine 125 mcg tablet See Rx Instructions .Route 07/11/23 04/24/25 Rx .COMPLEX #90 tabs hydroxychloroquine 200 mg tablet 200 mg PO BID 11/01/24 04/18/25 History midodrine 5 mg tablet 5 mg PO TID 11/01/24 04/18/25 History propranolol 10 mg tablet 10 mg PO BID 11/01/24 04/24/25 History cariprazine 1.5 mg capsule 1.5 mg PO .QOD 12/07/24 04/18/25 History (Vraylar) metformin 500 mg tablet 500 mg PO BID #180 tabs 12/24/24 04/18/25 Rx linaclotide 72 mcg capsule 72 mcg PO DAILY #90 caps 01/09/25 04/18/25 Rx (Linzess) dulaglutide 0.75 mg/0.5 mL 0.75 mg (0.5 mL) subcut WEEKLY #2 01/14/25 04/18/25 Rx subcutaneous pen injector mL (Trulicity) estradiol 1 mg tablet 1 mg PO DAILY 01/30/25 04/18/25 History rosuvastatin 20 mg tablet 20 mg PO DAILY #90 tabs 02/04/25 04/18/25 Rx ergocalciferol (vitamin D2) 1,000 2,000 mcg PO ONCE 04/18/25 04/24/25 History unit capsule oxycodone-acetaminophen 5 mg-325 1 tablet PO Q4H PRN pain #40 tabs 04/23/25 Rx mg tablet (Percocet) rivaroxaban 10 mg tablet (Xarelto) 10 mg PO DAILY #14 tabs 04/23/25 Rx meloxicam 15 mg tablet 15 mg PO DAILY 04/24/25 04/24/25 History Patient hx anesthesia problems: none Family hx anesthesia problems: none Results Review: All pre-operative results and documents have been reviewed as part of the pre-operative evaluation. [facility] Past Medical History Medical History Anxiety GERD (gastroesophageal reflux disease) Chronic sinusitis Colitis Urinary incontinence Constipation Depression Headache, migraine HLD (hyperlipidemia) Recurrent UTI Spinal cord stimulator status Thyroid disease Hypokalemia Opioid abuse DM w/o complication type II, uncontrolled Chronic pain of left knee Surgical History Surgical History H/O cardiac catheterization S/P right rotator cuff repair 06/2020 History of back surgery x9 H/O: hysterectomy H/O right knee surgery H/O left knee surgery x2 H/O neck surgery Family History Family History Mother Diabetes mellitus Hypertension Family history of elevated blood lipids Father Diabetes mellitus Hypertension Family history of congenital heart disease Family history of kidney disease Other Asthma Depression Family history of arthritis Family history of chronic obstructive pulmonary disease Family history of hearing loss Family history of liver disease Family history of malignant neoplasm of breast in first degree relative Family history of mental disorder Family history of obesity Social History Social History Smoking status: Never smoker Second hand tobacco smoke exposure: No Alcohol intake: current Alcohol use details: 1/year Substance use: never Substance use type: does not use Living arrangements: with family Spiritual care concerns: No Anes - Eval Final PreProcedure Day of Procedure 04/24/25 11:56 Patient weight: obese Heart: regular rate and rhythm Lungs: clear to auscultation Airway: Mallampati scale class II Neurological: alert and oriented Last oral intake: >/= 8 hours ASA classification: III Emergent: no Anesthetic plan: proceed Anesthesia type and monitoring: general ETT and standard monitoring Results Review: All pre-operative results and documents have been reviewed as part of the pre-operative evaluation. Informed Consent: The patient's anesthetic plan and its attendant risks and benefits were discussed with the patient/family/POA. Questions were solicited and answers provided to the satisfaction of the patient/family/POA.
--- NOTE | 2025-04-24 12:34 | WPDHPUPDATE1 ---
History and Physical Update Update Date/Time: 04/24/25 12:34 History and Physical has been reviewed, including an updated exam of the patient. There are NO changes in the patient's condition. Risks, benefits, and alternatives have been discussed and questions answered. Patient agrees to proceed with procedure.
[2025-04-24] MEDS: ceFAZolin 2 GM in SODIUM CHLORIDE 0.9% IV 50 ML 100 ML IVPB (12:47)
[2025-04-24] MEDS: BUPivacaine HCL 0.5% 10 ML AMP 5 ML INFILTRATE (13:09)
[2025-04-24] MEDS: LIDOCAINE 2% LOCAL INJ 20 ML VIAL 5 ML INFILTRATE (13:09)
--- NOTE | 2025-04-24 14:45 | P.OP_ITS ---
Procedure Note - Detailed Date of Procedure 04/24/25 Pre-op Diagnosis 1. Achilles tendon rupture left leg 2. Retrocalcaneal exostosis let foot Post-op Diagnosis Same Procedure Performed 1. Achilles Tendon repair left leg 2. Retrocalcaneal exostectomy with detachment and reattachment of the Achilles tendon left foot Surgeon Artemio Byrne Jr., DPM Anesthesia General and Local Indications Pain and weakness to the retrocalcaneal and distal Achilles tendon Findings Distal rupture of the Achilles Tendon at its insertion with a large retrocalceaneal spur Description of Procedure Under mild sedation, the patient was brought to the operating room, placed on the operating table in the prone position. A pneumatic thigh tourniquet was placed about the patient's left thigh. Following general anesthesia I performed a local anesthetic nerve block with 20cc's of 1:1 Mix of 2% Lidocaine plain and 0.5% Marcaine plain along with a common peroneal nerve nerve block. The left foot and distal leg was then scrubbed, prepped, and draped in the usual aseptic manner. An Esmarch bandage was then used to examine the patient's right foot and pneumatic thigh tourniquet was then inflated. Surgery began in the following manner. Attention was directed to the posterior aspect of leg leg where a curvilinear J shaped incision was made lateral to the retrocalcaneal exostosis which was palpable. The incision was made starting 6cm above the insertion of the Achilles and extending 3cm inferior and medial to the calcaneus. The incision was continued deep down through the subcutaneous tissues using sharp and blunt diss ection. All bleeders were cauterized as necessary. At this point dissection was continued exposing the the insertional component of the Achilles Tendon, where there was a rupture of the Achilles and was mop ended with degeneration. There was noted hypertrophy to the distal tendon. I made a proximal V to Y advancement just distal to the myotendinous junction. This gave me the length to reattach th e distal stump of the Achilles tendon to the retrocalcaneus. A modified Gift Box suture technique mas performed at the V to Y advancement site to reinforce the repair with 2.0 Arthrex Fiberwire. A midsubstance linear Achilles tendon incision was made exposing a large intrasubstance calcified region of bone which was carefully excised and discarded. There was a large posterior and superior exostosis noted which was resected with an osteotome and mallet and feathered smooth with a sagittal saw blade. All rough edges were smoothed with a power magda and bone rasp. The area was flushed with copious amounts of sterile saline. Fluoroscopy was used to make sure that enough of the retrocalcaneal region was resected approximately 3m from superior to inferior and medial to lateral and 2cm from posterior to anterior. Next, utilizing standard principle and techniques the Arthrex SpeedBridge system was used to reattach the debulked Achilles tendon to the posterior calcaneus. Comparable tension to the contralateral foot was maintained. Adequate stable reattachment was noted. I flushed the wound site with copious amounts of sterile saline. Next, the paratenon and overlying subcutaneous tissue was reapproximated with 3-0 Vicryl and 4-0 Vicryl correspondingly. Next, the skin was reapproximated and coapted until 4-0 Monocryl in running subcuticular suture fashion technique. Upon completion of the procedure, the incision was dressed with Adaptic, 4 x 4's, Kerlix, and Paresh Wrap. The pneumatic thigh tourniquet was then deflated and a prompt hyperemic response noted to all digits of the left foot. A posterior splint was then applied. The patient did very well with the procedure and the anesthesia. She was transferred to the recovery room with vital signs stable and vascular status intact to all toes of the left foot. Following a period of postoperative monitoring, the patient will be discharged home on the following written and oral postoperative instructions: 1. Keep the dressing clean, dry, and intact. Use a cast protector bag with showers. 2. The patient to be strictly nonweightbearing with a knee scooter. 3. The patient should ice and elevate the right foot when at rest. 4. The patient to contact Dr. Byrne for all postop care and if any problems arise. 5. Prescriptions were written for Percocet 5/325 dispensed 40 to be taken 1 p.o. q.4 to 6 hours as needed for severe pain. Implants Arthrex Speed Bridge 2.0 with Arthrex Fiberwire Estimated Blood Loss 5 Drains No Packing No Pathology None sent Complications No immediate complications Condition Stable Disposition Same day
[2025-04-24] MEDS: fentaNYL CITRATE INJ (*CRX) 100 MCG/2 ML VIAL 25 MCG IV PUSH ×8 (15:00→15:32)
[2025-04-24] MEDS: HYDROmorphone HCL INJ (*CRX) 1 MG/ML SYR 0.5 MG IV PUSH ×3 (15:45→16:19)
[2025-04-24] MEDS: oxyCODONE HCL (*CRX) 5 MG TAB IR PO (17:10)
== END 2025-04-24 17:48 | disposition home or self-care (01) ==
PROVIDERS: PCP Internal Medicine; Visit Provider Podiatrist Foot & Ankle Surgery
PROC: (CPT 27650; principal; 2025-04-24 13:00)
DX: S86.012A Strain of left Achilles tendon, initial encounter (principal); M76.62 Achilles tendinitis, left leg; M77.32 Calcaneal spur, left foot; X58.XXXA Exposure to other specified factors, initial encounter; E78.5 Hyperlipidemia, unspecified; E11.9 Type 2 diabetes mellitus without complications; K21.9 Gastro-esophageal reflux disease without esophagitis; E07.9 Disorder of thyroid, unspecified; E87.6 Hypokalemia; F41.9 Anxiety disorder, unspecified; J32.9 Chronic sinusitis, unspecified; R32 Unspecified urinary incontinence; F32.A Depression, unspecified; M25.562 Pain in left knee; G89.29 Other chronic pain; E66.9 Obesity, unspecified; Z68.31 Body mass index [BMI] 31.0-31.9, adult; Z79.84 Long term (current) use of oral hypoglycemic drugs; Z79.82 Long term (current) use of aspirin; Z79.85 Long-term (current) use of injectable non-insulin antidiabetic drugs; Z79.891 Long term (current) use of opiate analgesic; Z79.01 Long term (current) use of anticoagulants; Z96.82 Presence of neurostimulator; Z98.890 Other specified postprocedural states; Z98.1 Arthrodesis status; Z98.61 Coronary angioplasty status; Z87.19 Personal history of other diseases of the digestive system; Z80.3 Family history of malignant neoplasm of breast; Z82.49 Family history of ischemic heart disease and other diseases of the circulatory system
CPT/HCPCS: 27650; 28118; 82948; 99199; J0690; A9270; C1713; J0330; J1100; J1171; J2003; J2405; J2704; J3010; J7120